=== PATIENT | female | born 1955 | race Caucasian/White ===

== ENCOUNTER 2017-05-09 11:03 | Outpatient (RCR) | payer MEDICARE, MEDICAID, SELFPAY ==
[2017-05-09 11:51] VITALS: BP 140/87; PULSE 77; RESP 18; TEMP 36.8
--- NOTE | 2017-05-09 12:39 | PCM.WC.HP ---
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 Status: Acute Current Visit: Yes Code(s): I70.239 - Atherosclerosis of [place] arteries of right leg with ulceration of unspecified site; I70.249 - Atherosclerosis of [place] arteries of left leg with ulceration of unspecified site (2) Open wound Status: Acute Current Visit: No Code(s): T14.8 - Other injury of unspecified body region (3) Peripheral vascular occlusive disease Status: Acute Current Visit: No Code(s): I73.9 - Peripheral vascular disease, unspecified (4) Bilateral edema of lower extremity Status: Chronic Current Visit: No Code(s): R60.0 - Localized edema (5) Chronic renal insufficiency, stage III (moderate) Status: Chronic Current Visit: No Code(s): N18.3 - Chronic kidney disease, stage 3 (moderate) (6) Infected open wound Status: Acute Current Visit: Yes Code(s): T14.8XXA - Other injury of unspecified body region, initial encounter; L08.9 - Local infection of the skin and subcutaneous tissue, unspecified (7) Diabetes mellitus type 2, uncontrolled, with complications Status: Chronic Current Visit: No Code(s): E11.8 - Type 2 diabetes mellitus with unspecified complications; E11.65 - Type 2 diabetes mellitus with hyperglycemia (8) Diabetic neuropathy associated with diabetes mellitus due to underlying condition Status: Chronic Current Visit: No Code(s): E08.40 - Diabetes mellitus due to underlying condition with diabetic neuropathy, unspecified (9) Morbid obesity with BMI of 50.0-59.9, adult Status: Chronic Current Visit: No Code(s): E66.01 - Morbid (severe) obesity due to excess calories; Z68.43 - Body mass index (BMI) 50-59.9 , adult History of Present Illness Date of Service: 05/09/17 Chief Complaint: Bilateral lower leg ulcers infected History of Wound: 61-year-old morbid obese woman with diabetes and has atherosclerosis disease has still not seen Dr. De La Cruz was discharged 2 months ago and due to insurance problems and now has blisters that are open ulcers on bilateral lower legs. Was seen at the [facility] and put on antibiotics but given no dressing changes. Patient was referred then to wound center. 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 (Chronic) Past Medical History: Ulcers bilateral lower legs Allergies/Adverse Reactions: Allergies Penicillins Allergy (Intermediate, Verified 05/09/17 11:54) Hives Home Medications: Ambulatory Orders Medication Instructions Recorded Albuterol Inhaler [Ventolin Hfa 2 puff INHALATION Q4H PRN PRN 05/09/17 (SP)] Aspirin 81 mg PO DAILY 05/09/17 Atorvastatin Calcium [Lipitor] 10 mg PO DAILY 05/09/17 Bupropion HCl [Wellbutrin Xl] 300 mg PO DAILY 05/09/17 Clonidine HCl [Catapres] 0.2 mg PO BID 05/09/17 Clopidogrel Bisulfate [Plavix] 75 mg PO DAILY 05/09/17 Cyanocobalamin [Vitamin B12] 500 mcg PO DAILY@0800 05/09/17 Docusate Sodium [Colace] 100 mg PO BID PRN PRN 05/09/17 Famotidine [Pepcid] 40 mg PO DAILY 05/09/17 Fenofibrate 160 mg PO DAILY 05/09/17 Gabapentin [Neurontin] 800 mg PO TIDCM 05/09/17 GlipiZIDE [Glucotrol] 5 mg PO BIDAC 05/09/17 Hydrocodone/Acetaminophen 1 each PO TID 05/09/17 [Hydrocodon-Acetaminoph 7.5-325] Insulin Aspart [Novolog Flexpen units SC TIDCM 05/09/17 ([facility])] Insulin Glargine,Hum.rec.anlog unit SQ DAILY 05/09/17 [Lantus] Lisinopril [Zestril] 2.5 mg PO DAILY 05/09/17 Metoprolol Succinate [Toprol Xl] 25 mg PO DAILY 05/09/17 Nystatin Powder [Mycostatin Powder] 1 applic TOPICAL BID 05/09/17 [place]-3 Fatty Acids/Fish Oil 2 each PO DAILY 05/09/17 [[place] 3 Fish Oil Softgel] Polyethylene Glycol 3350 [Miralax] 17 gm PO DAILY 05/09/17 Spironolactone [Aldactone] 25 mg PO DAILY 05/09/17 Lives: Alone Smoking Status: Former smoker Tobacco Use: Non-smoker Alcohol: None Drugs: None Review of Systems Constitutional: Denies: Chills, Fever Eyes: Denies: Blurred vision, Drainage, Pain HEENT: Denies: Difficulty Hearing, Difficulty Swallowing, Sore Throat, Visual Changes Cardiovascular: Denies: Chest Pain, Palpitations, Syncope Respiratory: Denies: Cough, Shortness of Breath Gastrointestinal: Denies: Abdominal Pain, Nausea, Vomiting Genitourinary: Denies: Dysuria, Frequency Musculoskeletal: Denies: Joint Pain, Muscle pain Skin: Reports: - - Ulcer clusters on bilateral lower legs it started as blisters. Denies: Jaundice, Rash Neurological: Denies: Balance problems, Change in Speech, Difficulty swallowing, Focal weakness Psychiatric: Denies: Anxiety, Depression Endocrine: Denies: Change in Body Habitus Hematologic/ Lymphatic: Denies: Adenopathy - Physical Exam Vital Signs Temp Pulse Resp BP 98.2 F 77 18 140/87 H 05/09/17 11:51 05/09/17 11:51 05/09/17 11:51 05/09/17 11:51 General: Oriented x3, Cooperative, Well developed HEENT: Atraumatic, PERRLA Oral: Moist Mucosa Neck: Supple, No JVD Lungs: Clear to auscultation, Normal air movement Cardiovascular: Regular rate, Regular Rhythm Abdomen: Bowel Sounds Present, Soft, Non Tender, No Hepato-splenomegaly Extremities: No clubbing, No edema, - - Ulcer clusters on bilateral lower legs Wound Measurements and Assessment WC - Nurse 1 - General Ulcer Measurement Start: 05/09/17 11:19 Freq: Status: Active Protocol: Activity Type Activity Date Activity User E-Sign Co-Sign Detail Recorded Client Recorded Date Recorded By Document 05/09/17 11:51 [id number] 05/09/17 12:07 05/09/17 11:51 Wound Center Nurse 1 [Ulcer Assessment] #11 left inferior salgado -Combined with other wound No -Current Size (cm) - Length 1.1 -Current Size (cm) - Width 0.9 -Current Size (cm) - Depth 0.1 -Total Square Cm 0.99 -Date of Last Picture (Recall this 05/09/17 field) -Photo Taken Yes -Epithelialization Small 1-33% -Tunneling No -Undermining/Tunneling No -Circular Undermining No -Classification - Thickness Full Thickness without Exposed Support Structure -Exudate Amt Small (1-33%) -Exudate Type Serosanguineous -Wound Margin Distinct, Outline Attached -Granulation Amt Large (67-100%) -Granulation Quality [place] -Slough/Fibrin Yes -Necrosis Amt Small (1-33%) -Necrotic Tissue Type Adherent Slough -Structure Exposed Fascia Fat Layer Exposed -Texture (Iman-wound Skin Appearance) Friable Localized Edema Scarring -Moisture (Iman-wound Skin Appearance No Abnormality ) -Color (Iman-wound Skin Appearance) Erythema Hemosiderin Staining -Temperature (Iman-wound Skin No Abnormality Appearance) (Pt Warm) -Tenderness on Palpation (Iman-wound No Skin Appearance) -Ulcer Cleansing Rinsed/ Irrigated with Saline -Foul Odor after Cleansing No -Anesthetic Used 5% Lidocaine Gel #10 left medial salgado cluster -Combined with other wound No -Current Size (cm) - Length 4.0 -Current Size (cm) - Width 1.7 -Current Size (cm) - Depth 0.1 -Total Square Cm 6.80 -Date of Last Picture (Recall this 05/09/17 field) -Photo Taken Yes -Epithelialization None Present -Tunneling No -Undermining/Tunneling No -Circular Undermining No -Classification - Thickness Full Thickness without Exposed Support Structure -Exudate Amt Medium (34-66%) -Exudate Type Serosanguineous -Wound Margin Distinct, Outline Attached -Granulation Amt None Present (0 %) -Granulation Quality N/A -Slough/Fibrin Yes -Necrosis Amt Large (67-100%) -Necrotic Tissue Type Adherent Slough -Structure Exposed Fascia Fat Layer Exposed -Texture (Iman-wound Skin Appearance) Friable Localized Edema Scarring -Moisture (Iman-wound Skin Appearance No Abnormality ) -Color (Iman-wound Skin Appearance) Erythema Hemosiderin Staining -Temperature (Iman-wound Skin No Abnormality Appearance) (Pt Warm) -Tenderness on Palpation (Iman-wound Yes Skin Appearance) -Ulcer Cleansing Rinsed/ Irrigated with Saline -Foul Odor after Cleansing No -Anesthetic Used 5% Lidocaine Gel #9 left superior salgado cluster -Combined with other wound No -Current Size (cm) - Length 4.5 -Current Size (cm) - Width 7.4 -Current Size (cm) - Depth 0.1 -Total Square Cm 33.30 -Date of Last Picture (Recall this 05/09/17 field) -Photo Taken Yes -Epithelialization None Present -Tunneling No -Undermining/Tunneling No -Circular Undermining No -Classification - Thickness Full Thickness without Exposed Support Structure -Exudate Amt Medium (34-66%) -Exudate Type Serosanguineous -Wound Margin Distinct, Outline Attached -Granulation Amt None Present (0 %) -Granulation Quality N/A -Slough/Fibrin Yes -Necrosis Amt Large (67-100%) -Necrotic Tissue Type Adherent Slough -Structure Exposed Fascia Fat Layer Exposed -Texture (Iman-wound Skin Appearance) Friable Localized Edema Scarring -Moisture (Iman-wound Skin Appearance No Abnormality ) -Color (Iman-wound Skin Appearance) Erythema Hemosiderin Staining -Temperature (Iman-wound Skin No Abnormality Appearance) (Pt Warm) -Tenderness on Palpation (Iman-wound Yes Skin Appearance) -Ulcer Cleansing Rinsed/ Irrigated with Saline -Foul Odor after Cleansing No -Anesthetic Used 5% Lidocaine Gel #8 right posterior LE -Combined with other wound No -Current Size (cm) - Length 0.8 -Current Size (cm) - Width 0.4 -Current Size (cm) - Depth 0.1 -Total Square Cm 0.32 -Date of Last Picture (Recall this 05/09/17 field) -Photo Taken Yes -Epithelialization Small 1-33% -Tunneling No -Undermining/Tunneling No -Circular Undermining No -Classification - Thickness Full Thickness without Exposed Support Structure -Exudate Amt Small (1-33%) -Exudate Type Serosanguineous -Wound Margin Distinct, Outline Attached -Granulation Amt None Present (0 %) -Granulation Quality N/A -Slough/Fibrin Yes -Necrosis Amt Large (67-100%) -Necrotic Tissue Type Adherent Slough -Structure Exposed Fascia Fat Layer Exposed -Texture (Iman-wound Skin Appearance) Localized Edema -Moisture (Iman-wound Skin Appearance Dry/Scaly ) -Color (Iman-wound Skin Appearance) Erythema Hemosiderin Staining -Temperature (Iman-wound Skin No Abnormality Appearance) (Pt Warm) -Tenderness on Palpation (Iman-wound No Skin Appearance) -Ulcer Cleansing Rinsed/ Irrigated with Saline -Foul Odor after Cleansing No -Anesthetic Used 5% Lidocaine Gel #7 right inferior salgado -Combined with other wound No -Current Size (cm) - Length 0.8 -Current Size (cm) - Width 0.6 -Current Size (cm) - Depth 0.1 -Total Square Cm 0.48 -Date of Last Picture (Recall this 05/09/17 field) -Photo Taken Yes -Epithelialization Small 1-33% -Tunneling No -Undermining/Tunneling No -Circular Undermining No -Classification - Thickness Full Thickness without Exposed Support Structure -Exudate Amt Small (1-33%) -Exudate Type Serosanguineous -Wound Margin Distinct, Outline Attached -Granulation Amt Large (67-100%) -Granulation Quality [place] -Slough/Fibrin Yes -Necrosis Amt Small (1-33%) -Necrotic Tissue Type Adherent Slough -Structure Exposed Fascia Fat Layer Exposed -Texture (Iman-wound Skin Appearance) Friable Localized Edema Scarring -Moisture (Iman-wound Skin Appearance No Abnormality ) -Color (Iman-wound Skin Appearance) Erythema Hemosiderin Staining -Temperature (Iman-wound Skin No Abnormality Appearance) (Pt Warm) -Tenderness on Palpation (Iman-wound No Skin Appearance) -Ulcer Cleansing Rinsed/ Irrigated with Saline -Foul Odor after Cleansing No -Anesthetic Used 5% Lidocaine Gel #6 right medial salgado cluster -Combined with other wound No -Current Size (cm) - Length 6.0 -Current Size (cm) - Width 1.5 -Current Size (cm) - Depth 0.1 -Total Square Cm 9.00 -Date of Last Picture (Recall this 05/09/17 field) -Photo Taken Yes -Epithelialization None Present -Tunneling No -Undermining/Tunneling No -Circular Undermining No -Classification - Thickness Full Thickness without Exposed Support Structure -Exudate Amt Medium (34-66%) -Exudate Type Serosanguineous -Wound Margin Distinct, Outline Attached -Granulation Amt None Present (0 %) -Granulation Quality N/A -Slough/Fibrin Yes -Necrosis Amt Large (67-100%) -Necrotic Tissue Type Adherent Slough -Structure Exposed Fascia Fat Layer Exposed -Texture (Iman-wound Skin Appearance) Friable Localized Edema Scarring -Moisture (Iman-wound Skin Appearance No Abnormality ) -Color (Iman-wound Skin Appearance) Erythema Hemosiderin Staining -Temperature (Iman-wound Skin No Abnormality Appearance) (Pt Warm) -Tenderness on Palpation (Iman-wound Yes Skin Appearance) -Ulcer Cleansing Rinsed/ Irrigated with Saline -Foul Odor after Cleansing No -Anesthetic Used 5% Lidocaine Gel #5 right superior salgado cluster -Combined with other wound No -Current Size (cm) - Length 5.2 -Current Size (cm) - Width 2.2 -Current Size (cm) - Depth 0.2 -Total Square Cm 11.44 -Date of Last Picture (Recall this 05/09/17 field) -Photo Taken Yes -Epithelialization None Present -Tunneling No -Undermining/Tunneling No -Circular Undermining No -Classification - Thickness Full Thickness without Exposed Support Structure -Exudate Amt Small (1-33%) -Exudate Type Serosanguineous -Wound Margin Distinct, Outline Attached -Granulation Amt None Present (0 %) -Granulation Quality N/A -Slough/Fibrin Yes -Necrosis Amt Large (67-100%) -Necrotic Tissue Type Adherent Slough -Structure Exposed Fascia Fat Layer Exposed -Texture (Iman-wound Skin Appearance) Friable Localized Edema Scarring -Moisture (Iman-wound Skin Appearance No Abnormality ) -Color (Iman-wound Skin Appearance) Erythema Hemosiderin Staining -Temperature (Iman-wound Skin No Abnormality Appearance) (Pt Warm) -Tenderness on Palpation (Iman-wound Yes Skin Appearance) -Ulcer Cleansing Rinsed/ Irrigated with Saline -Foul Odor after Cleansing No -Anesthetic Used 5% Lidocaine Gel [Edema Assessment] -Lower Limb Edema Present Yes -Right Calf (cm) 46.8 -Right Ankle (cm) 23.5 -Left Calf (cm) 44.5 -Left Ankle (cm) 22.0 WC - Nurse 2 - General Ulcer CM Notes Start: 05/09/17 11:19 Freq: Status: Active Protocol: Activity Type Activity Date Activity User E-Sign Co-Sign Detail Recorded Client Recorded Date Recorded By Document 05/09/17 12:15 MW [id number] 05/09/17 12:27 MW 05/09/17 12:15 Wound Center Nurse 2 [Procedure/Treatment] #11 left inferior salgado -Time 12:20 -Correct Patient Yes -Correct Side, Site, Position Yes -Correct Procedure Yes -Procedure Performed Yes -Type of Procedure Debridement -Clinical Debridement Subcutaneous -Post Debridement Size (cm) - Length 1.0 -Post Debridement Size (cm) - Width 0.5 -Post Debridement Size (cm) - Depth 0.1 -Total Square Cm 0.50 -Wound/Ulcer Outcome Not Healed -Ulcer Cleansing Rinsed/ Irrigated with Saline -Foul Odor after Cleansing No -Bioengineered Tissue No -Bleeding Controlled with Pressure -Treatment Response Procedure Tolerated Well #10 left medial salgado cluster -Time 12:21 -Correct Patient Yes -Correct Side, Site, Position Yes -Correct Procedure Yes -Procedure Performed Yes -Type of Procedure Debridement -Clinical Debridement Subcutaneous -Post Debridement Size (cm) - Length 4.0 -Post Debridement Size (cm) - Width 1.7 -Post Debridement Size (cm) - Depth 0.1 -Total Square Cm 6.80 -Wound/Ulcer Outcome Not Healed -Ulcer Cleansing Rinsed/ Irrigated with Saline -Foul Odor after Cleansing No -Bioengineered Tissue No -Bleeding Controlled with Pressure -Treatment Response Procedure Tolerated Well #9 left superior salgado cluster -Time 12:21 -Correct Patient Yes -Correct Side, Site, Position Yes -Correct Procedure Yes -Procedure Performed Yes -Type of Procedure Debridement -Clinical Debridement Subcutaneous -Post Debridement Size (cm) - Length 4.5 -Post Debridement Size (cm) - Width 6.2 -Post Debridement Size (cm) - Depth 0.1 -Total Square Cm 27.90 -Wound/Ulcer Outcome Not Healed -Ulcer Cleansing Rinsed/ Irrigated with Saline -Foul Odor after Cleansing No -Bioengineered Tissue No -Bleeding Controlled with Pressure -Treatment Response Procedure Tolerated Well #8 right posterior LE -Time 12:22 -Correct Patient Yes -Correct Side, Site, Position Yes -Correct Procedure Yes -Procedure Performed Yes -Type of Procedure Debridement -Clinical Debridement Subcutaneous -Post Debridement Size (cm) - Length 0.7 -Post Debridement Size (cm) - Width 0.3 -Post Debridement Size (cm) - Depth 0.1 -Total Square Cm 0.21 -Wound/Ulcer Outcome Not Healed -Ulcer Cleansing Rinsed/ Irrigated with Saline -Foul Odor after Cleansing No -Bioengineered Tissue No -Bleeding Controlled with Pressure -Treatment Response Procedure Tolerated Well #7 right inferior salgado -Time 12:22 -Correct Patient Yes -Correct Side, Site, Position Yes -Correct Procedure Yes -Procedure Performed Yes -Type of Procedure Debridement -Clinical Debridement Subcutaneous -Post Debridement Size (cm) - Length 1.0 -Post Debridement Size (cm) - Width 1.0 -Post Debridement Size (cm) - Depth 0.2 -Total Square Cm 1.00 -Wound/Ulcer Outcome Not Healed -Ulcer Cleansing Rinsed/ Irrigated with Saline -Foul Odor after Cleansing No -Bioengineered Tissue No -Bleeding Controlled with Pressure -Treatment Response Procedure Tolerated Well #6 right medial salgado cluster -Time 12:22 -Correct Patient Yes -Correct Side, Site, Position Yes -Correct Procedure Yes -Procedure Performed Yes -Type of Procedure Debridement -Clinical Debridement Subcutaneous -Post Debridement Size (cm) - Length 7.5 -Post Debridement Size (cm) - Width 3.0 -Post Debridement Size (cm) - Depth 0.2 -Total Square Cm 22.50 -Wound/Ulcer Outcome Not Healed -Ulcer Cleansing Rinsed/ Irrigated with Saline -Foul Odor after Cleansing No -Bioengineered Tissue No -Bleeding Controlled with Pressure -Treatment Response Procedure Tolerated Well #5 right superior salgado cluster -Time 12:23 -Correct Patient Yes -Correct Side, Site, Position Yes -Correct Procedure Yes -Procedure Performed Yes -Type of Procedure Debridement -Clinical Debridement Subcutaneous -Post Debridement Size (cm) - Length 5.5 -Post Debridement Size (cm) - Width 2.0 -Post Debridement Size (cm) - Depth 0.2 -Total Square Cm 11.00 -Wound/Ulcer Outcome Not Healed -Ulcer Cleansing Rinsed/ Irrigated with Saline -Foul Odor after Cleansing No -Bioengineered Tissue No -Bleeding Controlled with Pressure -Treatment Response Procedure Tolerated Well [See Physician Procedure note for Specifics] Pain Scale: 0-10 Numeric [Pain] -Is Patient Pain Free? Yes Musculoskeletal: No Tenderness to Palpation of Joints or Extremities Lymphatic: No Cervical, Supraclavicular, or Inguinal Adenopathy Neurological: Cranial nerves II-XII grossly intact, Neuro grossly intact Psych/Mental Status: Normal Affect, Appropriate Debridement Note Post-Debridement Measurements/Treatment WC - Nurse 2 - General Ulcer CM Notes Start: 05/09/17 11:19 Freq: Status: Active Protocol: Activity Type Activity Date Activity User E-Sign Co-Sign Detail Recorded Client Recorded Date Recorded By Document 05/09/17 12:15 MW [id number] 05/09/17 12:27 MW 05/09/17 12:15 Wound Center Nurse 2 #11 left inferior salgado -Time 12:20 -Correct Patient Yes -Correct Side, Site, Position Yes -Correct Procedure Yes -Procedure Performed Yes -Type of Procedure Debridement -Clinical Debridement Subcutaneous -Post Debridement Size (cm) - Length 1.0 -Post Debridement Size (cm) - Width 0.5 -Post Debridement Size (cm) - Depth 0.1 -Total Square Cm 0.50 -Wound/Ulcer Outcome Not Healed -Ulcer Cleansing Rinsed/ Irrigated with Saline -Foul Odor after Cleansing No -Bioengineered Tissue No -Bleeding Controlled with Pressure -Treatment Response Procedure Tolerated Well #10 left medial salgado cluster -Time 12:21 -Correct Patient Yes -Correct Side, Site, Position Yes -Correct Procedure Yes -Procedure Performed Yes -Type of Procedure Debridement -Clinical Debridement Subcutaneous -Post Debridement Size (cm) - Length 4.0 -Post Debridement Size (cm) - Width 1.7 -Post Debridement Size (cm) - Depth 0.1 -Total Square Cm 6.80 -Wound/Ulcer Outcome Not Healed -Ulcer Cleansing Rinsed/ Irrigated with Saline -Foul Odor after Cleansing No -Bioengineered Tissue No -Bleeding Controlled with Pressure -Treatment Response Procedure Tolerated Well #9 left superior salgado cluster -Time 12:21 -Correct Patient Yes -Correct Side, Site, Position Yes -Correct Procedure Yes -Procedure Performed Yes -Type of Procedure Debridement -Clinical Debridement Subcutaneous -Post Debridement Size (cm) - Length 4.5 -Post Debridement Size (cm) - Width 6.2 -Post Debridement Size (cm) - Depth 0.1 -Total Square Cm 27.90 -Wound/Ulcer Outcome Not Healed -Ulcer Cleansing Rinsed/ Irrigated with Saline -Foul Odor after Cleansing No -Bioengineered Tissue No -Bleeding Controlled with Pressure -Treatment Response Procedure Tolerated Well #8 right posterior LE -Time 12:22 -Correct Patient Yes -Correct Side, Site, Position Yes -Correct Procedure Yes -Procedure Performed Yes -Type of Procedure Debridement -Clinical Debridement Subcutaneous -Post Debridement Size (cm) - Length 0.7 -Post Debridement Size (cm) - Width 0.3 -Post Debridement Size (cm) - Depth 0.1 -Total Square Cm 0.21 -Wound/Ulcer Outcome Not Healed -Ulcer Cleansing Rinsed/ Irrigated with Saline -Foul Odor after Cleansing No -Bioengineered Tissue No -Bleeding Controlled with Pressure -Treatment Response Procedure Tolerated Well #7 right inferior salgado -Time 12:22 -Correct Patient Yes -Correct Side, Site, Position Yes -Correct Procedure Yes -Procedure Performed Yes -Type of Procedure Debridement -Clinical Debridement Subcutaneous -Post Debridement Size (cm) - Length 1.0 -Post Debridement Size (cm) - Width 1.0 -Post Debridement Size (cm) - Depth 0.2 -Total Square Cm 1.00 -Wound/Ulcer Outcome Not Healed -Ulcer Cleansing Rinsed/ Irrigated with Saline -Foul Odor after Cleansing No -Bioengineered Tissue No -Bleeding Controlled with Pressure -Treatment Response Procedure Tolerated Well #6 right medial salgado cluster -Time 12:22 -Correct Patient Yes -Correct Side, Site, Position Yes -Correct Procedure Yes -Procedure Performed Yes -Type of Procedure Debridement -Clinical Debridement Subcutaneous -Post Debridement Size (cm) - Length 7.5 -Post Debridement Size (cm) - Width 3.0 -Post Debridement Size (cm) - Depth 0.2 -Total Square Cm 22.50 -Wound/Ulcer Outcome Not Healed -Ulcer Cleansing Rinsed/ Irrigated with Saline -Foul Odor after Cleansing No -Bioengineered Tissue No -Bleeding Controlled with Pressure -Treatment Response Procedure Tolerated Well #5 right superior salgado cluster -Time 12:23 -Correct Patient Yes -Correct Side, Site, Position Yes -Correct Procedure Yes -Procedure Performed Yes -Type of Procedure Debridement -Clinical Debridement Subcutaneous -Post Debridement Size (cm) - Length 5.5 -Post Debridement Size (cm) - Width 2.0 -Post Debridement Size (cm) - Depth 0.2 -Total Square Cm 11.00 -Wound/Ulcer Outcome Not Healed -Ulcer Cleansing Rinsed/ Irrigated with Saline -Foul Odor after Cleansing No -Bioengineered Tissue No -Bleeding Controlled with Pressure -Treatment Response Procedure Tolerated Well Pain Scale: 0-10 Numeric Is Patient Pain Free? Yes Wound debrided: Superior salgado cluster Type of Debridement: Excisional debridement Anesthesia Used: 5% Lidocaine Gel Depth: Down to and including healthy tissue, in the subcutaneous layer Percentage of wound debrided: 100 Instrument Used: 5mm curette Tissue Removed: slough and devitalized tissue Severity: Limited To Skin Breakdown Amount of bleeding with debridement: Mild Bleeding Controlled with: Compression and gauze Patient tolerated procedure well - Additional Wound Wound debrided: Right medial and cluster Type of Debridement: Excisional debridement Anesthesia Used: 5% Lidocaine Gel Depth: Down to and including healthy tissue, in the subcutaneous layer, to muscle Percentage of wound debrided: 100 Instrument Used: 5mm curette Tissue Removed: Slough Severity: Limited To Skin Breakdown Amount of bleeding with debridement: Mild - Additional Wound Wound debrided: The posterior lower leg Type of Debridement: Excisional debridement Anesthesia Used: 5% Lidocaine Gel Depth: Down to and including healthy tissue, in the subcutaneous layer Percentage of wound debrided: 100 Instrument Used: 5mm curette Tissue Removed: slough - Additional Wound Wound debrided: Superior salgado cluster Type of Debridement: Excisional debridement Anesthesia Used: 5% Lidocaine Gel Depth: Down to and including healthy tissue, in the subcutaneous layer Percentage of wound debrided: 100 Instrument Used: 5mm curette Tissue Removed: slough Severity: Limited To Skin Breakdown Amount of bleeding with debridement: Mild Bleeding Controlled with: Compression and gauze - Additional Wound Wound debrided: Left medial salgado cluster Type of Debridement: Excisional debridement Anesthesia Used: 5% Lidocaine Gel Depth: Down to and including healthy tissue, in the subcutaneous layer Instrument Used: 5mm curette Tissue Removed: Slough Severity: Limited To Skin Breakdown Amount of bleeding with debridement: Mild Bleeding Controlled with: Compression and gauze Patient tolerated procedure: Patient tolerated procedure well - Additional Wound Wound debrided: Left inferior salgado Type of Debridement: Excisional debridement Anesthesia Used: 5% Lidocaine Gel Depth: Down to and including healthy tissue, in the subcutaneous layer Percentage of wound debrided: 100 Instrument Used: 5mm curette Tissue Removed: slough Severity: Limited To Skin Breakdown Amount of bleeding with debridement: Mild Bleeding Controlled with: Compression and gauze Patient tolerated procedure: Patient tolerated procedure well Assessment/Plan Anaerobic cultures taken of ulcers right leg Active Problems Atherosclerosis of both lower extremities with bilateral ulceration (Acute) Infected bite wound (Acute) Infected open wound (Acute) Assessment: Ulcers bilateral lower legs in clusters. Bilateral lower leg edema. Diabetes type 2 uncontrolled. 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 Renal insufficiency grade 3 Plan: Wash legs with Hibiclens and apply Aquacel silver moistened to all wound areas cover with Adaptic wrapped with gauze and [place]. Apply a double layer Tubigrip's to bilateral lower legs. Cultures were taken of bilateral lower legs. Continue taking antibiotic given to at the hospital. Follow-up in 1 week
--- NOTE | 2017-05-09 12:49 | HP.PCM_ITS ---
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 Status: Acute Current Visit: Yes Code(s): I70.239 - Atherosclerosis of [place] arteries of right leg with ulceration of unspecified site; I70.249 - Atherosclerosis of [place] arteries of left leg with ulceration of unspecified site (2) Open wound Status: Acute Current Visit: No Code(s): T14.8 - Other injury of unspecified body region (3) Peripheral vascular occlusive disease Status: Acute Current Visit: No Code(s): I73.9 - Peripheral vascular disease , unspecified (4) Bilateral edema of lower extremity Status: Chronic Current Visit: No Code(s): R60.0 - Localized edema (5) Chronic renal insufficiency, stage III (moderate) Status: Chronic Current Visit: No Code(s): N18.3 - Chronic kidney disease, stage 3 (moderate) (6) Infected open wound Status: Acute Current Visit: Yes Code(s): T14.8XXA - Other injury of unspecified body region, initial encounter; L08.9 - Local infection of the skin and subcutaneous tissue, unspecified (7) Diabetes mellitus type 2, uncontrolled, with complications Status: Chronic Current Visit: No Code(s): E11.8 - Type 2 diabetes mellitus with unspecified complications; E11.65 - Type 2 diabetes mellitus with hyperglycemia (8) Diabetic neuropathy associated with diabetes mellitus due to underlying condition Status: Chronic Current Visit: No Code(s): E08.40 - Diabetes mellitus due to underlying condition with diabetic neuropathy, unspecified (9) Morbid obesity with BMI of 50.0-59.9, adult Status: Chronic Current Visit: No Code(s): E66.01 - Morbid (severe) obesity due to excess calories; Z68.43 - Body mass index (BMI) 50-59.9 , adult History of Present Illness Date of Service: 05/09/17 Chief Complaint: Bilateral lower leg ulcers infected History of Wound: 61-year-old morbid obese woman with diabetes and has atherosclerosis disease has still not seen Dr. De La Cruz was discharged 2 months ago and due to insurance problems and now has blisters that are open ulcers on bilateral lower legs. Was seen at the [facility] and put on antibiotics but given no dressing changes. Patient was referred then to wound center. 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 (Chronic) Past Medical History: Ulcers bilateral lower legs Allergies/Adverse Reactions: Allergies Penicillins Allergy (Intermediate, Verified 05/09/17 11:54) Hives Home Medications: Ambulatory Orders Medication Instructions Recorded Albuterol Inhaler [Ventolin Hfa 2 puff INHALATION Q4H PRN PRN 05/09/17 (SP)] Aspirin 81 mg PO DAILY 05/09/17 Atorvastatin Calcium [Lipitor] 10 mg PO DAILY 05/09/17 Bupropion HCl [Wellbutrin Xl] 300 mg PO DAILY 05/09/17 Clonidine HCl [Catapres] 0.2 mg PO BID 05/09/17 Clopidogrel Bisulfate [Plavix] 75 mg PO DAILY 05/09/17 Cyanocobalamin [Vitamin B12] 500 mcg PO DAILY@0800 05/09/17 Docusate Sodium [Colace] 100 mg PO BID PRN PRN 05/09/17 Famotidine [Pepcid] 40 mg PO DAILY 05/09/17 Fenofibrate 160 mg PO DAILY 05/09/17 Gabapentin [Neurontin] 800 mg PO TIDCM 05/09/17 GlipiZIDE [Glucotrol] 5 mg PO BIDAC 05/09/17 Hydrocodone/Acetaminophen 1 each PO TID 05/09/17 [Hydrocodon-Acetaminoph 7.5-325] Insulin Aspart [Novolog Flexpen units SC TIDCM 05/09/17 ([facility])] Insulin Glargine,Hum.rec.anlog unit SQ DAILY 05/09/17 [Lantus] Lisinopril [Zestril] 2.5 mg PO DAILY 05/09/17 Metoprolol Succinate [Toprol Xl] 25 mg PO DAILY 05/09/17 Nystatin Powder [Mycostatin Powder] 1 applic TOPICAL BID 05/09/17 [place]-3 Fatty Acids/Fish Oil 2 each PO DAILY 05/09/17 [[place] 3 Fish Oil Softgel] Polyethylene Glycol 3350 [Miralax] 17 gm PO DAILY 05/09/17 Spironolactone [Aldactone] 25 mg PO DAILY 05/09/17 Lives: Alone Smoking Status: Former smoker Tobacco Use: Non-smoker Alcohol: None Drugs: None Review of Systems Constitutional: Denies: Chills, Fever Eyes: Denies: Blurred vision, Drainage, Pain HEENT: Denies: Difficulty Hearing, Difficulty Swallowing, Sore Throat, Visual Changes Cardiovascular: Denies: Chest Pain, Palpitations, Syncope Respiratory: Denies: Cough, Shortness of Breath Gastrointestinal: Denies: Abdominal Pain, Nausea, Vomiting Genitourinary: Denies: Dysuria, Frequency Musculoskeletal: Denies: Joint Pain, Muscle pain Skin: Reports: - - Ulcer clusters on bilateral lower legs it started as blisters. Denies: Jaundice, Rash Neurological: Denies: Balance problems, Change in Speech, Difficulty swallowing , Focal weakness Psychiatric: Denies: Anxiety, Depression Endocrine: Denies: Change in Body Habitus Hematologic/ Lymphatic: Denies: Adenopathy - Physical Exam Vital Signs Temp Pulse Resp BP 98.2 F 77 18 140/87 H 05/09/17 11:51 05/09/17 11:51 05/09/17 11:51 05/09/17 11:51 General: Oriented x3, Cooperative, Well developed HEENT: Atraumatic, PERRLA Oral: Moist Mucosa Neck: Supple, No JVD Lungs: Clear to auscultation, Normal air movement Cardiovascular: Regular rate, Regular Rhythm Abdomen: Bowel Sounds Present, Soft, Non Tender, No Hepato-splenomegaly Extremities: No clubbing, No edema, - - Ulcer clusters on bilateral lower legs Wound Measurements and Assessment WC - Nurse 1 - General Ulcer Measurement Start: 05/09/17 11:19 Freq: Status: Active Protocol: Activity Type Activity Date Activity User E-Sign Co-Sign Detail Recorded Client Recorded Date Recorded By Document 05/09/17 11:51 [id number] 05/09/17 12:07 05/09/17 11:51 Wound Center Nurse 1 [Ulcer Assessment] #11 left inferior salgado -Combined with other wound No -Current Size (cm) - Length 1.1 -Current Size (cm) - Width 0.9 -Current Size (cm) - Depth 0.1 -Total Square Cm 0.99 -Date of Last Picture (Recall this 05/09/17 field) -Photo Taken Yes -Epithelialization Small 1-33% -Tunneling No -Undermining/Tunneling No -Circular Undermining No -Classification - Thickness Full Thickness without Exposed Support Structure -Exudate Amt Small (1-33%) -Exudate Type Serosanguineous -Wound Margin Distinct, Outline Attached -Granulation Amt Large (67-100%) -Granulation Quality [place] -Slough/Fibrin Yes -Necrosis Amt Small (1-33%) -Necrotic Tissue Type Adherent Slough -Structure Exposed Fascia Fat Layer Exposed -Texture (Iman-wound Skin Appearance) Friable Localized Edema Scarring -Moisture (Iman-wound Skin Appearance No Abnormality ) -Color (Iman-wound Skin Appearance) Erythema Hemosiderin Staining -Temperature (Iman-wound Skin No Abnormality Appearance) (Pt Warm) -Tenderness on Palpation (Iman-wound No Skin Appearance) -Ulcer Cleansing Rinsed/ Irrigated with Saline -Foul Odor after Cleansing No -Anesthetic Used 5% Lidocaine Gel #10 left medial salgado cluster -Combined with other wound No -Current Size (cm) - Length 4.0 -Current Size (cm) - Width 1.7 -Current Size (cm) - Depth 0.1 -Total Square Cm 6.80 -Date of Last Picture (Recall this 05/09/17 field) -Photo Taken Yes -Epithelialization None Present -Tunneling No -Undermining/Tunneling No -Circular Undermining No -Classification - Thickness Full Thickness without Exposed Support Structure -Exudate Amt Medium (34-66%) -Exudate Type Serosanguineous -Wound Margin Distinct, Outline Attached -Granulation Amt None Present (0 %) -Granulation Quality N/A -Slough/Fibrin Yes -Necrosis Amt Large (67-100%) -Necrotic Tissue Type Adherent Slough -Structure Exposed Fascia Fat Layer Exposed -Texture (Iman-wound Skin Appearance) Friable Localized Edema Scarring -Moisture (Iman-wound Skin Appearance No Abnormality ) -Color (Iman-wound Skin Appearance) Erythema Hemosiderin Staining -Temperature (Iman-wound Skin No Abnormality Appearance) (Pt Warm) -Tenderness on Palpation (Iman-wound Yes Skin Appearance) -Ulcer Cleansing Rinsed/ Irrigated with Saline -Foul Odor after Cleansing No -Anesthetic Used 5% Lidocaine Gel #9 left superior salgado cluster -Combined with other wound No -Current Size (cm) - Length 4.5 -Current Size (cm) - Width 7.4 -Current Size (cm) - Depth 0.1 -Total Square Cm 33.30 -Date of Last Picture (Recall this 05/09/17 field) -Photo Taken Yes -Epithelialization None Present -Tunneling No -Undermining/Tunneling No -Circular Undermining No -Classification - Thickness Full Thickness without Exposed Support Structure -Exudate Amt Medium (34-66%) -Exudate Type Serosanguineous -Wound Margin Distinct, Outline Attached -Granulation Amt None Present (0 %) -Granulation Quality N/A -Slough/Fibrin Yes -Necrosis Amt Large (67-100%) -Necrotic Tissue Type Adherent Slough -Structure Exposed Fascia Fat Layer Exposed -Texture (Iman-wound Skin Appearance) Friable Localized Edema Scarring -Moisture (Iman-wound Skin Appearance No Abnormality ) -Color (Iman-wound Skin Appearance) Erythema Hemosiderin Staining -Temperature (Iman-wound Skin No Abnormality Appearance) (Pt Warm) -Tenderness on Palpation (Iman-wound Yes Skin Appearance) -Ulcer Cleansing Rinsed/ Irrigated with Saline -Foul Odor after Cleansing No -Anesthetic Used 5% Lidocaine Gel #8 right posterior LE -Combined with other wound No -Current Size (cm) - Length 0.8 -Current Size (cm) - Width 0.4 -Current Size (cm) - Depth 0.1 -Total Square Cm 0.32 -Date of Last Picture (Recall this 05/09/17 field) -Photo Taken Yes -Epithelialization Small 1-33% -Tunneling No -Undermining/Tunneling No -Circular Undermining No -Classification - Thickness Full Thickness without Exposed Support Structure -Exudate Amt Small (1-33%) -Exudate Type Serosanguineous -Wound Margin Distinct, Outline Attached -Granulation Amt None Present (0 %) -Granulation Quality N/A -Slough/Fibrin Yes -Necrosis Amt Large (67-100%) -Necrotic Tissue Type Adherent Slough -Structure Exposed Fascia Fat Layer Exposed -Texture (Iman-wound Skin Appearance) Localized Edema -Moisture (Iman-wound Skin Appearance Dry/Scaly ) -Color (Iman-wound Skin Appearance) Erythema Hemosiderin Staining -Temperature (Iman-wound Skin No Abnormality Appearance) (Pt Warm) -Tenderness on Palpation (Iman-wound No Skin Appearance) -Ulcer Cleansing Rinsed/ Irrigated with Saline -Foul Odor after Cleansing No -Anesthetic Used 5% Lidocaine Gel #7 right inferior salgado -Combined with other wound No -Current Size (cm) - Length 0.8 -Current Size (cm) - Width 0.6 -Current Size (cm) - Depth 0.1 -Total Square Cm 0.48 -Date of Last Picture (Recall this 05/09/17 field) -Photo Taken Yes -Epithelialization Small 1-33% -Tunneling No -Undermining/Tunneling No -Circular Undermining No -Classification - Thickness Full Thickness without Exposed Support Structure -Exudate Amt Small (1-33%) -Exudate Type Serosanguineous -Wound Margin Distinct, Outline Attached -Granulation Amt Large (67-100%) -Granulation Quality [place] -Slough/Fibrin Yes -Necrosis Amt Small (1-33%) -Necrotic Tissue Type Adherent Slough -Structure Exposed Fascia Fat Layer Exposed -Texture (Iman-wound Skin Appearance) Friable Localized Edema Scarring -Moisture (Iman-wound Skin Appearance No Abnormality ) -Color (Iman-wound Skin Appearance) Erythema Hemosiderin Staining -Temperature (Iman-wound Skin No Abnormality Appearance) (Pt Warm) -Tenderness on Palpation (Iman-wound No Skin Appearance) -Ulcer Cleansing Rinsed/ Irrigated with Saline -Foul Odor after Cleansing No -Anesthetic Used 5% Lidocaine Gel #6 right medial salgado cluster -Combined with other wound No -Current Size (cm) - Length 6.0 -Current Size (cm) - Width 1.5 -Current Size (cm) - Depth 0.1 -Total Square Cm 9.00 -Date of Last Picture (Recall this 05/09/17 field) -Photo Taken Yes -Epithelialization None Present -Tunneling No -Undermining/Tunneling No -Circular Undermining No -Classification - Thickness Full Thickness without Exposed Support Structure -Exudate Amt Medium (34-66%) -Exudate Type Serosanguineous -Wound Margin Distinct, Outline Attached -Granulation Amt None Present (0 %) -Granulation Quality N/A -Slough/Fibrin Yes -Necrosis Amt Large (67-100%) -Necrotic Tissue Type Adherent Slough -Structure Exposed Fascia Fat Layer Exposed -Texture (Iman-wound Skin Appearance) Friable Localized Edema Scarring -Moisture (Iman-wound Skin Appearance No Abnormality ) -Color (Iman-wound Skin Appearance) Erythema Hemosiderin Staining -Temperature (Iman-wound Skin No Abnormality Appearance) (Pt Warm) -Tenderness on Palpation (Iman-wound Yes Skin Appearance) -Ulcer Cleansing Rinsed/ Irrigated with Saline -Foul Odor after Cleansing No -Anesthetic Used 5% Lidocaine Gel #5 right superior salgado cluster -Combined with other wound No -Current Size (cm) - Length 5.2 -Current Size (cm) - Width 2.2 -Current Size (cm) - Depth 0.2 -Total Square Cm 11.44 -Date of Last Picture (Recall this 05/09/17 field) -Photo Taken Yes -Epithelialization None Present -Tunneling No -Undermining/Tunneling No -Circular Undermining No -Classification - Thickness Full Thickness without Exposed Support Structure -Exudate Amt Small (1-33%) -Exudate Type Serosanguineous -Wound Margin Distinct, Outline Attached -Granulation Amt None Present (0 %) -Granulation Quality N/A -Slough/Fibrin Yes -Necrosis Amt Large (67-100%) -Necrotic Tissue Type Adherent Slough -Structure Exposed Fascia Fat Layer Exposed -Texture (Iman-wound Skin Appearance) Friable Localized Edema Scarring -Moisture (Iman-wound Skin Appearance No Abnormality ) -Color (Iman-wound Skin Appearance) Erythema Hemosiderin Staining -Temperature (Iman-wound Skin No Abnormality Appearance) (Pt Warm) -Tenderness on Palpation (Iman-wound Yes Skin Appearance) -Ulcer Cleansing Rinsed/ Irrigated with Saline -Foul Odor after Cleansing No -Anesthetic Used 5% Lidocaine Gel [Edema Assessment] -Lower Limb Edema Present Yes -Right Calf (cm) 46.8 -Right Ankle (cm) 23.5 -Left Calf (cm) 44.5 -Left Ankle (cm) 22.0 WC - Nurse 2 - General Ulcer CM Notes Start: 05/09/17 11:19 Freq: Status: Active Protocol: Activity Type Activity Date Activity User E-Sign Co-Sign Detail Recorded Client Recorded Date Recorded By Document 05/09/17 12:15 MW [id number] 05/09/17 12:27 MW 05/09/17 12:15 Wound Center Nurse 2 [Procedure/Treatment] #11 left inferior salgado -Time 12:20 -Correct Patient Yes -Correct Side, Site, Position Yes -Correct Procedure Yes -Procedure Performed Yes -Type of Procedure Debridement -Clinical Debridement Subcutaneous -Post Debridement Size (cm) - Length 1.0 -Post Debridement Size (cm) - Width 0.5 -Post Debridement Size (cm) - Depth 0.1 -Total Square Cm 0.50 -Wound/Ulcer Outcome Not Healed -Ulcer Cleansing Rinsed/ Irrigated with Saline -Foul Odor after Cleansing No -Bioengineered Tissue No -Bleeding Controlled with Pressure -Treatment Response Procedure Tolerated Well #10 left medial salgado cluster -Time 12:21 -Correct Patient Yes -Correct Side, Site, Position Yes -Correct Procedure Yes -Procedure Performed Yes -Type of Procedure Debridement -Clinical Debridement Subcutaneous -Post Debridement Size (cm) - Length 4.0 -Post Debridement Size (cm) - Width 1.7 -Post Debridement Size (cm) - Depth 0.1 -Total Square Cm 6.80 -Wound/Ulcer Outcome Not Healed -Ulcer Cleansing Rinsed/ Irrigated with Saline -Foul Odor after Cleansing No -Bioengineered Tissue No -Bleeding Controlled with Pressure -Treatment Response Procedure Tolerated Well #9 left superior salgado cluster -Time 12:21 -Correct Patient Yes -Correct Side, Site, Position Yes -Correct Procedure Yes -Procedure Performed Yes -Type of Procedure Debridement -Clinical Debridement Subcutaneous -Post Debridement Size (cm) - Length 4.5 -Post Debridement Size (cm) - Width 6.2 -Post Debridement Size (cm) - Depth 0.1 -Total Square Cm 27.90 -Wound/Ulcer Outcome Not Healed -Ulcer Cleansing Rinsed/ Irrigated with Saline -Foul Odor after Cleansing No -Bioengineered Tissue No -Bleeding Controlled with Pressure -Treatment Response Procedure Tolerated Well #8 right posterior LE -Time 12:22 -Correct Patient Yes -Correct Side, Site, Position Yes -Correct Procedure Yes -Procedure Performed Yes -Type of Procedure Debridement -Clinical Debridement Subcutaneous -Post Debridement Size (cm) - Length 0.7 -Post Debridement Size (cm) - Width 0.3 -Post Debridement Size (cm) - Depth 0.1 -Total Square Cm 0.21 -Wound/Ulcer Outcome Not Healed -Ulcer Cleansing Rinsed/ Irrigated with Saline -Foul Odor after Cleansing No -Bioengineered Tissue No -Bleeding Controlled with Pressure -Treatment Response Procedure Tolerated Well #7 right inferior salgado -Time 12:22 -Correct Patient Yes -Correct Side, Site, Position Yes -Correct Procedure Yes -Procedure Performed Yes -Type of Procedure Debridement -Clinical Debridement Subcutaneous -Post Debridement Size (cm) - Length 1.0 -Post Debridement Size (cm) - Width 1.0 -Post Debridement Size (cm) - Depth 0.2 -Total Square Cm 1.00 -Wound/Ulcer Outcome Not Healed -Ulcer Cleansing Rinsed/ Irrigated with Saline -Foul Odor after Cleansing No -Bioengineered Tissue No -Bleeding Controlled with Pressure -Treatment Response Procedure Tolerated Well #6 right medial salgado cluster -Time 12:22 -Correct Patient Yes -Correct Side, Site, Position Yes -Correct Procedure Yes -Procedure Performed Yes -Type of Procedure Debridement -Clinical Debridement Subcutaneous -Post Debridement Size (cm) - Length 7.5 -Post Debridement Size (cm) - Width 3.0 -Post Debridement Size (cm) - Depth 0.2 -Total Square Cm 22.50 -Wound/Ulcer Outcome Not Healed -Ulcer Cleansing Rinsed/ Irrigated with Saline -Foul Odor after Cleansing No -Bioengineered Tissue No -Bleeding Controlled with Pressure -Treatment Response Procedure Tolerated Well #5 right superior salgado cluster -Time 12:23 -Correct Patient Yes -Correct Side, Site, Position Yes -Correct Procedure Yes -Procedure Performed Yes -Type of Procedure Debridement -Clinical Debridement Subcutaneous -Post Debridement Size (cm) - Length 5.5 -Post Debridement Size (cm) - Width 2.0 -Post Debridement Size (cm) - Depth 0.2 -Total Square Cm 11.00 -Wound/Ulcer Outcome Not Healed -Ulcer Cleansing Rinsed/ Irrigated with Saline -Foul Odor after Cleansing No -Bioengineered Tissue No -Bleeding Controlled with Pressure -Treatment Response Procedure Tolerated Well [See Physician Procedure note for Specifics] Pain Scale: 0-10 Numeric [Pain] -Is Patient Pain Free? Yes Musculoskeletal: No Tenderness to Palpation of Joints or Extremities Lymphatic: No Cervical, Supraclavicular, or Inguinal Adenopathy Neurological: Cranial nerves II-XII grossly intact, Neuro grossly intact Psych/Mental Status: Normal Affect, Appropriate Debridement Note Post-Debridement Measurements/Treatment WC - Nurse 2 - General Ulcer CM Notes Start: 05/09/17 11:19 Freq: Status: Active Protocol: Activity Type Activity Date Activity User E-Sign Co-Sign Detail Recorded Client Recorded Date Recorded By Document 05/09/17 12:15 MW [id number] 05/09/17 12:27 MW 05/09/17 12:15 Wound Center Nurse 2 #11 left inferior salgado -Time 12:20 -Correct Patient Yes -Correct Side, Site, Position Yes -Correct Procedure Yes -Procedure Performed Yes -Type of Procedure Debridement -Clinical Debridement Subcutaneous -Post Debridement Size (cm) - Length 1.0 -Post Debridement Size (cm) - Width 0.5 -Post Debridement Size (cm) - Depth 0.1 -Total Square Cm 0.50 -Wound/Ulcer Outcome Not Healed -Ulcer Cleansing Rinsed/ Irrigated with Saline -Foul Odor after Cleansing No -Bioengineered Tissue No -Bleeding Controlled with Pressure -Treatment Response Procedure Tolerated Well #10 left medial salgado cluster -Time 12:21 -Correct Patient Yes -Correct Side, Site, Position Yes -Correct Procedure Yes -Procedure Performed Yes -Type of Procedure Debridement -Clinical Debridement Subcutaneous -Post Debridement Size (cm) - Length 4.0 -Post Debridement Size (cm) - Width 1.7 -Post Debridement Size (cm) - Depth 0.1 -Total Square Cm 6.80 -Wound/Ulcer Outcome Not Healed -Ulcer Cleansing Rinsed/ Irrigated with Saline -Foul Odor after Cleansing No -Bioengineered Tissue No -Bleeding Controlled with Pressure -Treatment Response Procedure Tolerated Well #9 left superior salgado cluster -Time 12:21 -Correct Patient Yes -Correct Side, Site, Position Yes -Correct Procedure Yes -Procedure Performed Yes -Type of Procedure Debridement -Clinical Debridement Subcutaneous -Post Debridement Size (cm) - Length 4.5 -Post Debridement Size (cm) - Width 6.2 -Post Debridement Size (cm) - Depth 0.1 -Total Square Cm 27.90 -Wound/Ulcer Outcome Not Healed -Ulcer Cleansing Rinsed/ Irrigated with Saline -Foul Odor after Cleansing No -Bioengineered Tissue No -Bleeding Controlled with Pressure -Treatment Response Procedure Tolerated Well #8 right posterior LE -Time 12:22 -Correct Patient Yes -Correct Side, Site, Position Yes -Correct Procedure Yes -Procedure Performed Yes -Type of Procedure Debridement -Clinical Debridement Subcutaneous -Post Debridement Size (cm) - Length 0.7 -Post Debridement Size (cm) - Width 0.3 -Post Debridement Size (cm) - Depth 0.1 -Total Square Cm 0.21 -Wound/Ulcer Outcome Not Healed -Ulcer Cleansing Rinsed/ Irrigated with Saline -Foul Odor after Cleansing No -Bioengineered Tissue No -Bleeding Controlled with Pressure -Treatment Response Procedure Tolerated Well #7 right inferior salgado -Time 12:22 -Correct Patient Yes -Correct Side, Site, Position Yes -Correct Procedure Yes -Procedure Performed Yes -Type of Procedure Debridement -Clinical Debridement Subcutaneous -Post Debridement Size (cm) - Length 1.0 -Post Debridement Size (cm) - Width 1.0 -Post Debridement Size (cm) - Depth 0.2 -Total Square Cm 1.00 -Wound/Ulcer Outcome Not Healed -Ulcer Cleansing Rinsed/ Irrigated with Saline -Foul Odor after Cleansing No -Bioengineered Tissue No -Bleeding Controlled with Pressure -Treatment Response Procedure Tolerated Well #6 right medial salgado cluster -Time 12:22 -Correct Patient Yes -Correct Side, Site, Position Yes -Correct Procedure Yes -Procedure Performed Yes -Type of Procedure Debridement -Clinical Debridement Subcutaneous -Post Debridement Size (cm) - Length 7.5 -Post Debridement Size (cm) - Width 3.0 -Post Debridement Size (cm) - Depth 0.2 -Total Square Cm 22.50 -Wound/Ulcer Outcome Not Healed -Ulcer Cleansing Rinsed/ Irrigated with Saline -Foul Odor after Cleansing No -Bioengineered Tissue No -Bleeding Controlled with Pressure -Treatment Response Procedure Tolerated Well #5 right superior salgado cluster -Time 12:23 -Correct Patient Yes -Correct Side, Site, Position Yes -Correct Procedure Yes -Procedure Performed Yes -Type of Procedure Debridement -Clinical Debridement Subcutaneous -Post Debridement Size (cm) - Length 5.5 -Post Debridement Size (cm) - Width 2.0 -Post Debridement Size (cm) - Depth 0.2 -Total Square Cm 11.00 -Wound/Ulcer Outcome Not Healed -Ulcer Cleansing Rinsed/ Irrigated with Saline -Foul Odor after Cleansing No -Bioengineered Tissue No -Bleeding Controlled with Pressure -Treatment Response Procedure Tolerated Well Pain Scale: 0-10 Numeric Is Patient Pain Free? Yes Wound debrided: Superior salgado cluster Type of Debridement: Excisional debridement Anesthesia Used: 5% Lidocaine Gel Depth: Down to and including healthy tissue, in the subcutaneous layer Percentage of wound debrided: 100 Instrument Used: 5mm curette Tissue Removed: slough and devitalized tissue Severity: Limited To Skin Breakdown Amount of bleeding with debridement: Mild Bleeding Controlled with: Compression and gauze Patient tolerated procedure well - Additional Wound Wound debrided: Right medial and cluster Type of Debridement: Excisional debridement Anesthesia Used: 5% Lidocaine Gel Depth: Down to and including healthy tissue, in the subcutaneous layer, to muscle Percentage of wound debrided: 100 Instrument Used: 5mm curette Tissue Removed: Slough Severity: Limited To Skin Breakdown Amount of bleeding with debridement: Mild - Additional Wound Wound debrided: The posterior lower leg Type of Debridement: Excisional debridement Anesthesia Used: 5% Lidocaine Gel Depth: Down to and including healthy tissue, in the subcutaneous layer Percentage of wound debrided: 100 Instrument Used: 5mm curette Tissue Removed: slough - Additional Wound Wound debrided: Superior salgado cluster Type of Debridement: Excisional debridement Anesthesia Used: 5% Lidocaine Gel Depth: Down to and including healthy tissue, in the subcutaneous layer Percentage of wound debrided: 100 Instrument Used: 5mm curette Tissue Removed: slough Severity: Limited To Skin Breakdown Amount of bleeding with debridement: Mild Bleeding Controlled with: Compression and gauze - Additional Wound Wound debrided: Left medial salgado cluster Type of Debridement: Excisional debridement Anesthesia Used: 5% Lidocaine Gel Depth: Down to and including healthy tissue, in the subcutaneous layer Instrument Used: 5mm curette Tissue Removed: Slough Severity: Limited To Skin Breakdown Amount of bleeding with debridement: Mild Bleeding Controlled with: Compression and gauze Patient tolerated procedure: Patient tolerated procedure well - Additional Wound Wound debrided: Left inferior salgado Type of Debridement: Excisional debridement Anesthesia Used: 5% Lidocaine Gel Depth: Down to and including healthy tissue, in the subcutaneous layer Percentage of wound debrided: 100 Instrument Used: 5mm curette Tissue Removed: slough Severity: Limited To Skin Breakdown Amount of bleeding with debridement: Mild Bleeding Controlled with: Compression and gauze Patient tolerated procedure: Patient tolerated procedure well Assessment/Plan Anaerobic cultures taken of ulcers right leg Active Problems Atherosclerosis of both lower extremities with bilateral ulceration (Acute) Infected bite wound (Acute) Infected open wound (Acute) Assessment: Ulcers bilateral lower legs in clusters. Bilateral lower leg edema. Diabetes type 2 uncontrolled. 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 Renal insufficiency grade 3 Plan: Wash legs with Hibiclens and apply Aquacel silver moistened to all wound areas cover with Adaptic wrapped with gauze and Isrrael. Apply a double layer Tubigrip's to bilateral lower legs. Cultures were taken of bilateral lower legs. Continue taking antibiotic given to at the hospital. Follow-up in 1 week
== END 2017-05-14 23:59 ==
LOC: WC 11:03
PROVIDERS: Family Provider Family Medicine; PCP Family Medicine; Visit Provider Nurse Practitioner
DX: E11.622 Type 2 diabetes mellitus with other skin ulcer (principal); I70.248 Atherosclerosis of native arteries of left leg with ulceration of other part of lower leg; I70.238 Atherosclerosis of native arteries of right leg with ulceration of other part of lower leg; L97.821 Non-pressure chronic ulcer of other part of left lower leg limited to breakdown of skin; L97.811 Non-pressure chronic ulcer of other part of right lower leg limited to breakdown of skin; E11.51 Type 2 diabetes mellitus with diabetic peripheral angiopathy without gangrene; R60.0 Localized edema; E11.65 Type 2 diabetes mellitus with hyperglycemia; E11.40 Type 2 diabetes mellitus with diabetic neuropathy, unspecified; E66.01 Morbid (severe) obesity due to excess calories; Z68.43 Body mass index [BMI] 50.0-59.9, adult; Z71.3 Dietary counseling and surveillance; E11.22 Type 2 diabetes mellitus with diabetic chronic kidney disease; N18.4 Chronic kidney disease, stage 4 (severe); Z79.899 Other long term (current) drug therapy; Z79.02 Long term (current) use of antithrombotics/antiplatelets; Z79.4 Long term (current) use of insulin; Z87.891 Personal history of nicotine dependence
CPT/HCPCS: 11042; 11045; 87070; 87075; 87077; 87186; 87205; 99213; G0463

== ENCOUNTER → 2017-05-09 15:59 | Outpatient (CLI) | payer MEDICAID, MEDICARE, SELFPAY | PROVIDERS: Family Provider Family Medicine; PCP Family Medicine; Visit Provider Nurse Practitioner | DX: L08.9 Local infection of the skin and subcutaneous tissue, unspecified (principal) ==

== ENCOUNTER 2017-06-13 10:15 | Outpatient (RCR) | payer MEDICARE, MEDICAID, SELFPAY ==
[2017-05-15 01:16] VITALS: PULSE 77; RESP 18; TEMP 36.8
[2017-05-16 10:57] VITALS: BP 118/45; PULSE 68; RESP 18; TEMP 36.8
--- NOTE | 2017-05-16 13:53 | PN.PCM_ITS ---
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 Status: Acute Current Visit: Yes Code(s): I70.239 - Atherosclerosis of [place] arteries of right leg with ulceration of unspecified site; I70.249 - Atherosclerosis of [place] arteries of left leg with ulceration of unspecified site (2) Infected open wound Status: Acute Current Visit: Yes Code(s): T14.8XXA - Other injury of unspecified body region, initial encounter; L08.9 - Local infection of the skin and subcutaneous tissue, unspecified (3) Open wound Status: Acute Current Visit: Yes Code(s): T14.8 - Other injury of unspecified body region (4) Peripheral vascular occlusive disease Status: Acute Current Visit: Yes Code(s): I73.9 - Peripheral vascular disease, unspecified (5) Atherosclerosis of left lower extremity with ulceration Status: Chronic Current Visit: Yes Code(s): I70.249 - Atherosclerosis of [place] arteries of left leg with ulceration of unspecified site (6) Bilateral edema of lower extremity Status: Chronic Current Visit: Yes Code(s): R60.0 - Localized edema (7) Chronic renal insufficiency, stage III (moderate) Status: Chronic Current Visit: Yes Code(s): N18.3 - Chronic kidney disease, stage 3 (moderate) (8) Diabetes mellitus type 2, uncontrolled, with complications Status: Chronic Current Visit: Yes Code(s): E11.8 - Type 2 diabetes mellitus with unspecified complications; E11.65 - Type 2 diabetes mellitus with hyperglycemia (9) Morbid obesity with BMI of 50.0-59.9, adult Status: Chronic Current Visit: Yes Code(s): E66.01 - Morbid (severe) obesity due to excess calories; Z68.43 - Body mass index (BMI) 50-59.9 , adult Type of Wound Date of Service: 05/16/17 Chief Complaint: Bilateral lower leg ulcers infected History of Wound: 61-year-old morbid obese woman with diabetes and has atherosclerosis disease has still not seen Dr. De La Cruz was discharged 2 months ago and due to insurance problems and now has blisters that are open ulcers on bilateral lower legs. Was seen at the [facility] and put on antibiotics but given no dressing changes. Patient was referred then to wound center. Progress of Wound: Bilateral lower leg ulcers are improving the right posterior lower extremity healed. Patient was very emotional today because her son committed suicide by hanging this last past week from drugs and depression. Patient still has a lot of edema in her lower extremities. Positive cultures were obtained from wounds ,patient is to start on new antibiotic. - Physical Exam Vital Signs Temp Pulse Resp BP 98.3 F 68 18 118/45 L 05/16/17 10:57 05/16/17 10:57 05/16/17 10:57 05/16/17 10:57 General: Oriented x3, Cooperative, Well developed HEENT: Atraumatic, PERRLA Oral: Moist Mucosa Neck: Supple, No JVD Lungs: Clear to auscultation, Normal air movement Cardiovascular: Regular rate, Regular Rhythm Abdomen: Bowel Sounds Present, Soft, Non Tender, No Hepato-splenomegaly Extremities: No clubbing, No edema, - - Lateral lower leg ulcer clusters Wound Measurements and Assessment WC - Nurse 1 - General Ulcer Measurement Start: 05/16/17 10:57 Freq: Status: Active Protocol: Activity Type Activity Date Activity User E-Sign Co-Sign Detail Recorded Client Recorded Date Recorded By Document 05/16/17 10:57 [id number] 05/16/17 11:27 05/16/17 10:57 Wound Center Nurse 1 [Ulcer Assessment] #11 left inferior salgado -Combined with other wound No -Current Size (cm) - Length 0 -Current Size (cm) - Width 0 -Current Size (cm) - Depth 0 -Total Square Cm 0 -Date of Last Picture (Recall this 05/16/17 field) -Photo Taken Yes -Epithelialization Large 67-100% -Tunneling No -Undermining/Tunneling No -Circular Undermining No -Classification - Thickness Full Thickness without Exposed Support Structure -Exudate Amt None Present (0 %) -Wound Margin Distinct, Outline Attached -Granulation Amt None Present (0 %) -Slough/Fibrin No -Necrosis Amt None Present (0 %) -Structure Exposed None/Limited to Skin Breakdown -Texture (Iman-wound Skin Appearance) Localized Edema Scarring -Moisture (Iman-wound Skin Appearance Dry/Scaly ) -Color (Iman-wound Skin Appearance) No Abnormality -Temperature (Iman-wound Skin No Abnormality Appearance) (Pt Warm) -Tenderness on Palpation (Iman-wound No Skin Appearance) -Ulcer Cleansing Rinsed/ Irrigated with Saline -Foul Odor after Cleansing No #10 left medial salgado cluster -Combined with other wound No -Current Size (cm) - Length 3.6 -Current Size (cm) - Width 1.5 -Current Size (cm) - Depth 0.1 -Total Square Cm 5.40 -Photo Taken No -Epithelialization Small 1-33% -Tunneling No -Undermining/Tunneling No -Circular Undermining No -Classification - Thickness Full Thickness without Exposed Support Structure -Exudate Amt Small (1-33%) -Exudate Type Serosanguineous -Wound Margin Distinct, Outline Attached -Granulation Amt Small (1-33%) -Granulation Quality [place] -Slough/Fibrin Yes -Necrosis Amt Large (67-100%) -Necrotic Tissue Type Adherent Slough -Structure Exposed Fascia Fat Layer Exposed -Texture (Iman-wound Skin Appearance) Localized Edema Scarring -Moisture (Iman-wound Skin Appearance No Abnormality ) -Color (Iman-wound Skin Appearance) Erythema Hemosiderin Staining -Temperature (Iman-wound Skin No Abnormality Appearance) (Pt Warm) -Tenderness on Palpation (Iman-wound No Skin Appearance) -Ulcer Cleansing Rinsed/ Irrigated with Saline -Foul Odor after Cleansing No -Anesthetic Used 5% Lidocaine Gel #9 left superior salgado cluster -Combined with other wound No -Current Size (cm) - Length 4.4 -Current Size (cm) - Width 4.5 -Current Size (cm) - Depth 0.1 -Total Square Cm 19.80 -Photo Taken No -Epithelialization Small 1-33% -Tunneling No -Undermining/Tunneling No -Circular Undermining No -Classification - Thickness Full Thickness without Exposed Support Structure -Exudate Amt Small (1-33%) -Exudate Type Serosanguineous -Wound Margin Distinct, Outline Attached -Granulation Amt Medium (34-66%) -Granulation Quality [place] -Slough/Fibrin Yes -Necrosis Amt Medium (34-66%) -Necrotic Tissue Type Adherent Slough -Structure Exposed Fascia Fat Layer Exposed -Texture (Iman-wound Skin Appearance) Localized Edema Scarring -Moisture (Iman-wound Skin Appearance No Abnormality ) -Color (Iman-wound Skin Appearance) Erythema Hemosiderin Staining -Temperature (Iman-wound Skin No Abnormality Appearance) (Pt Warm) -Tenderness on Palpation (Iman-wound No Skin Appearance) -Ulcer Cleansing Rinsed/ Irrigated with Saline -Foul Odor after Cleansing No -Anesthetic Used 5% Lidocaine Gel #8 right posterior LE -Combined with other wound No -Current Size (cm) - Length 0 -Current Size (cm) - Width 0 -Current Size (cm) - Depth 0 -Total Square Cm 0 -Date of Last Picture (Recall this 05/16/17 field) -Photo Taken Yes -Epithelialization Large 67-100% -Tunneling No -Undermining/Tunneling No -Circular Undermining No -Classification - Thickness Full Thickness without Exposed Support Structure -Exudate Amt None Present (0 %) -Wound Margin Distinct, Outline Attached -Granulation Amt Large (67-100%) -Granulation Quality [place] -Slough/Fibrin No -Necrosis Amt None Present (0 %) -Structure Exposed None/Limited to Skin Breakdown -Texture (Iman-wound Skin Appearance) Localized Edema Scarring -Moisture (Iman-wound Skin Appearance Dry/Scaly ) -Color (Iman-wound Skin Appearance) No Abnormality -Temperature (Iman-wound Skin No Abnormality Appearance) (Pt Warm) -Tenderness on Palpation (Iman-wound No Skin Appearance) -Ulcer Cleansing Rinsed/ Irrigated with Saline -Foul Odor after Cleansing No #7 right inferior salgado -Combined with other wound No -Current Size (cm) - Length 0.3 -Current Size (cm) - Width 0.2 -Current Size (cm) - Depth 0.1 -Total Square Cm 0.06 -Photo Taken No -Epithelialization Small 1-33% -Tunneling No -Undermining/Tunneling No -Circular Undermining No -Classification - Thickness Full Thickness without Exposed Support Structure -Exudate Amt Small (1-33%) -Exudate Type Serosanguineous -Wound Margin Distinct, Outline Attached -Granulation Amt Small (1-33%) -Granulation Quality [place] -Slough/Fibrin Yes -Necrosis Amt Large (67-100%) -Necrotic Tissue Type Adherent Slough -Structure Exposed Fascia Fat Layer Exposed -Texture (Iman-wound Skin Appearance) Localized Edema Scarring -Moisture (Iman-wound Skin Appearance No Abnormality ) -Color (Iman-wound Skin Appearance) Erythema Hemosiderin Staining -Temperature (Iman-wound Skin No Abnormality Appearance) (Pt Warm) -Tenderness on Palpation (Iman-wound No Skin Appearance) -Ulcer Cleansing Rinsed/ Irrigated with Saline -Foul Odor after Cleansing No -Anesthetic Used 5% Lidocaine Gel #6 right medial salgado cluster -Combined with other wound No -Current Size (cm) - Length 5.4 -Current Size (cm) - Width 1.0 -Current Size (cm) - Depth 0.1 -Total Square Cm 5.40 -Photo Taken No -Epithelialization Small 1-33% -Tunneling No -Undermining/Tunneling No -Circular Undermining No -Classification - Thickness Full Thickness without Exposed Support Structure -Exudate Amt Small (1-33%) -Exudate Type Serosanguineous -Wound Margin Distinct, Outline Attached -Granulation Amt Small (1-33%) -Granulation Quality [place] -Slough/Fibrin Yes -Necrosis Amt Medium (34-66%) -Necrotic Tissue Type Adherent Slough -Structure Exposed Fascia Fat Layer Exposed -Texture (Iman-wound Skin Appearance) Localized Edema Scarring -Moisture (Iman-wound Skin Appearance No Abnormality ) -Color (Iman-wound Skin Appearance) Erythema Hemosiderin Staining -Temperature (Iman-wound Skin No Abnormality Appearance) (Pt Warm) -Tenderness on Palpation (Iman-wound No Skin Appearance) -Ulcer Cleansing Rinsed/ Irrigated with Saline -Foul Odor after Cleansing No -Anesthetic Used 5% Lidocaine Gel #5 right superior salgado cluster -Combined with other wound No -Current Size (cm) - Length 4.7 -Current Size (cm) - Width 1.9 -Current Size (cm) - Depth 0.1 -Total Square Cm 8.93 -Photo Taken No -Epithelialization Small 1-33% -Tunneling No -Undermining/Tunneling No -Circular Undermining No -Classification - Thickness Full Thickness without Exposed Support Structure -Exudate Amt Small (1-33%) -Exudate Type Serosanguineous -Wound Margin Distinct, Outline Attached -Granulation Amt Small (1-33%) -Granulation Quality [place] -Slough/Fibrin Yes -Necrosis Amt Large (67-100%) -Necrotic Tissue Type Adherent Slough -Structure Exposed Fascia Fat Layer Exposed -Texture (Iman-wound Skin Appearance) Localized Edema Scarring -Color (Iman-wound Skin Appearance) No Abnormality -Temperature (Iman-wound Skin No Abnormality Appearance) (Pt Warm) -Tenderness on Palpation (Iman-wound No Skin Appearance) -Ulcer Cleansing Rinsed/ Irrigated with Saline -Foul Odor after Cleansing No -Anesthetic Used 5% Lidocaine Gel [Edema Assessment] -Lower Limb Edema Present Yes -Right Calf (cm) 43.5 -Right Ankle (cm) 23.0 -Left Calf (cm) 40.0 -Left Ankle (cm) 22.0 WC - Nurse 2 - General Ulcer CM Notes Start: 05/16/17 10:57 Freq: Status: Active Protocol: Activity Type Activity Date Activity User E-Sign Co-Sign Detail Recorded Client Recorded Date Recorded By Document 05/16/17 12:51 MW [id number] 05/16/17 12:54 MW 05/16/17 12:51 Wound Center Nurse 2 [Procedure/Treatment] #10 left medial salgado cluster -Time 12:51 -Correct Patient Yes -Correct Side, Site, Position Yes -Correct Procedure Yes -Procedure Performed Yes -Type of Procedure Debridement -Clinical Debridement Subcutaneous -Post Debridement Size (cm) - Length 0.5 -Post Debridement Size (cm) - Width 0.3 -Post Debridement Size (cm) - Depth 0.1 -Total Square Cm 0.15 -Wound/Ulcer Outcome Not Healed -Ulcer Cleansing Rinsed/ Irrigated with Saline -Foul Odor after Cleansing No -Bioengineered Tissue No -Bleeding Controlled with Pressure -Treatment Response Procedure Tolerated Well #9 left superior salgado cluster -Time 12:52 -Correct Patient Yes -Correct Side, Site, Position Yes -Correct Procedure Yes -Procedure Performed Yes -Type of Procedure Debridement -Clinical Debridement Subcutaneous -Post Debridement Size (cm) - Length 4.2 -Post Debridement Size (cm) - Width 0.8 -Post Debridement Size (cm) - Depth 0.2 -Total Square Cm 3.36 -Wound/Ulcer Outcome Not Healed -Ulcer Cleansing Rinsed/ Irrigated with Saline -Foul Odor after Cleansing No -Bioengineered Tissue No -Bleeding Controlled with Pressure -Treatment Response Procedure Tolerated Well #7 right inferior salgado -Time 12:52 -Correct Patient Yes -Correct Side, Site, Position Yes -Correct Procedure Yes -Procedure Performed Yes -Type of Procedure Debridement -Clinical Debridement Subcutaneous -Post Debridement Size (cm) - Length 0.4 -Post Debridement Size (cm) - Width 0.3 -Post Debridement Size (cm) - Depth 0.1 -Total Square Cm 0.12 -Wound/Ulcer Outcome Not Healed -Ulcer Cleansing Rinsed/ Irrigated with Saline -Foul Odor after Cleansing No -Bioengineered Tissue No -Bleeding Controlled with Pressure -Treatment Response Procedure Tolerated Well #6 right medial salgado cluster -Time 12:52 -Correct Patient Yes -Correct Side, Site, Position Yes -Correct Procedure Yes -Procedure Performed Yes -Type of Procedure Debridement -Clinical Debridement Subcutaneous -Post Debridement Size (cm) - Length 4.0 -Post Debridement Size (cm) - Width 0.7 -Post Debridement Size (cm) - Depth 0.2 -Total Square Cm 2.80 -Wound/Ulcer Outcome Not Healed -Ulcer Cleansing Rinsed/ Irrigated with Saline -Foul Odor after Cleansing No -Bioengineered Tissue No -Bleeding Controlled with Pressure -Treatment Response Procedure Tolerated Well #5 right superior salgado cluster -Time 12:53 -Correct Patient Yes -Correct Side, Site, Position Yes -Correct Procedure Yes -Procedure Performed Yes -Type of Procedure Debridement -Clinical Debridement Subcutaneous -Post Debridement Size (cm) - Length 4.3 -Post Debridement Size (cm) - Width 0.4 -Post Debridement Size (cm) - Depth 0.2 -Total Square Cm 1.72 -Wound/Ulcer Outcome Not Healed -Ulcer Cleansing Rinsed/ Irrigated with Saline -Foul Odor after Cleansing No -Bioengineered Tissue No -Bleeding Controlled with Pressure -Treatment Response Procedure Tolerated Well [See Physician Procedure note for Specifics] Pain Scale: 0-10 Numeric [Pain] -Is Patient Pain Free? Yes Musculoskeletal: No Tenderness to Palpation of Joints or Extremities Lymphatic: No Cervical, Supraclavicular, or Inguinal Adenopathy Neurological: Cranial nerves II-XII grossly intact, Neuro grossly intact Psych/Mental Status: Normal Affect, Appropriate Debridement Note Post-Debridement Measurements/Treatment WC - Nurse 2 - General Ulcer CM Notes Start: 05/16/17 10:57 Freq: Status: Active Protocol: Activity Type Activity Date Activity User E-Sign Co-Sign Detail Recorded Client Recorded Date Recorded By Document 05/16/17 12:51 MW [id number] 05/16/17 12:54 MW 05/16/17 12:51 Wound Center Nurse 2 #10 left medial salgado cluster -Time 12:51 -Correct Patient Yes -Correct Side, Site, Position Yes -Correct Procedure Yes -Procedure Performed Yes -Type of Procedure Debridement -Clinical Debridement Subcutaneous -Post Debridement Size (cm) - Length 0.5 -Post Debridement Size (cm) - Width 0.3 -Post Debridement Size (cm) - Depth 0.1 -Total Square Cm 0.15 -Wound/Ulcer Outcome Not Healed -Ulcer Cleansing Rinsed/ Irrigated with Saline -Foul Odor after Cleansing No -Bioengineered Tissue No -Bleeding Controlled with Pressure -Treatment Response Procedure Tolerated Well #9 left superior salgado cluster -Time 12:52 -Correct Patient Yes -Correct Side, Site, Position Yes -Correct Procedure Yes -Procedure Performed Yes -Type of Procedure Debridement -Clinical Debridement Subcutaneous -Post Debridement Size (cm) - Length 4.2 -Post Debridement Size (cm) - Width 0.8 -Post Debridement Size (cm) - Depth 0.2 -Total Square Cm 3.36 -Wound/Ulcer Outcome Not Healed -Ulcer Cleansing Rinsed/ Irrigated with Saline -Foul Odor after Cleansing No -Bioengineered Tissue No -Bleeding Controlled with Pressure -Treatment Response Procedure Tolerated Well #7 right inferior salgado -Time 12:52 -Correct Patient Yes -Correct Side, Site, Position Yes -Correct Procedure Yes -Procedure Performed Yes -Type of Procedure Debridement -Clinical Debridement Subcutaneous -Post Debridement Size (cm) - Length 0.4 -Post Debridement Size (cm) - Width 0.3 -Post Debridement Size (cm) - Depth 0.1 -Total Square Cm 0.12 -Wound/Ulcer Outcome Not Healed -Ulcer Cleansing Rinsed/ Irrigated with Saline -Foul Odor after Cleansing No -Bioengineered Tissue No -Bleeding Controlled with Pressure -Treatment Response Procedure Tolerated Well #6 right medial salgado cluster -Time 12:52 -Correct Patient Yes -Correct Side, Site, Position Yes -Correct Procedure Yes -Procedure Performed Yes -Type of Procedure Debridement -Clinical Debridement Subcutaneous -Post Debridement Size (cm) - Length 4.0 -Post Debridement Size (cm) - Width 0.7 -Post Debridement Size (cm) - Depth 0.2 -Total Square Cm 2.80 -Wound/Ulcer Outcome Not Healed -Ulcer Cleansing Rinsed/ Irrigated with Saline -Foul Odor after Cleansing No -Bioengineered Tissue No -Bleeding Controlled with Pressure -Treatment Response Procedure Tolerated Well #5 right superior salgado cluster -Time 12:53 -Correct Patient Yes -Correct Side, Site, Position Yes -Correct Procedure Yes -Procedure Performed Yes -Type of Procedure Debridement -Clinical Debridement Subcutaneous -Post Debridement Size (cm) - Length 4.3 -Post Debridement Size (cm) - Width 0.4 -Post Debridement Size (cm) - Depth 0.2 -Total Square Cm 1.72 -Wound/Ulcer Outcome Not Healed -Ulcer Cleansing Rinsed/ Irrigated with Saline -Foul Odor after Cleansing No -Bioengineered Tissue No -Bleeding Controlled with Pressure -Treatment Response Procedure Tolerated Well Pain Scale: 0-10 Numeric Is Patient Pain Free? Yes Wound debrided: Right superior lower leg cluster Type of Debridement: Excisional debridement Anesthesia Used: 5% Lidocaine Gel Depth: Down to and including healthy tissue, in the subcutaneous layer Percentage of wound debrided: 100 Instrument Used: 5mm curette Tissue Removed: slough and fibrin Severity: Limited To Skin Breakdown Amount of bleeding with debridement: Mild Bleeding Controlled with: Compression and gauze Patient tolerated procedure well - Additional Wound Wound debrided: Right inferior lower leg cluster Type of Debridement: Excisional debridement Anesthesia Used: 5% Lidocaine Gel Depth: Down to and including healthy tissue, in the subcutaneous layer Percentage of wound debrided: 100 Instrument Used: 5mm curette Tissue Removed: slough and fibrin Severity: Limited To Skin Breakdown Amount of bleeding with debridement: Mild Bleeding Controlled with: Compression and gauze Patient tolerated procedure: Patient tolerated procedure well - Additional Wound Wound debrided: Right medial ankle Type of Debridement: Excisional debridement Anesthesia Used: 5% Lidocaine Gel Depth: Down to and including healthy tissue, in the subcutaneous layer Percentage of wound debrided: 100 Instrument Used: 5mm curette Tissue Removed: Slough and fibrin Severity: Limited To Skin Breakdown Amount of bleeding with debridement: Mild Bleeding Controlled with: Compression and gauze - Additional Wound Wound debrided: Left superior cluster ulcer Type of Debridement: Excisional debridement Anesthesia Used: 5% Lidocaine Gel Depth: Down to and including healthy tissue, in the subcutaneous layer Percentage of wound debrided: 100 Instrument Used: 5mm curette Tissue Removed: slough and fibrin Severity: Limited To Skin Breakdown Amount of bleeding with debridement: Mild Bleeding Controlled with: Compression and gauze Patient tolerated procedure: Patient tolerated procedure well - Additional Wound Wound debrided: Left medial ulcer cluster lower extremity Type of Debridement: Excisional debridement Anesthesia Used: 5% Lidocaine Gel Depth: Down to and including healthy tissue, in the subcutaneous layer Percentage of wound debrided: 100 Instrument Used: 5mm curette Tissue Removed: Fibrin and slough Severity: Limited To Skin Breakdown Amount of bleeding with debridement: Mild Bleeding Controlled with: Compression and gauze Patient tolerated procedure: Patient tolerated procedure well Assessment/Plan Active Problems 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 Bilateral lower leg edema. Diabetes type 2 uncontrolled. 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 Renal insufficiency grade 3. Infected ulcers Plan: Wash legs with Hibiclens and apply Aquacel silver moistened to all wound areas cover with Adaptic wrapped with gauze and Isrrael. Apply a double layer Tubigrip's to bilateral lower legs. Continue antibiotic therapy. Follow-up in 2 week
[2017-05-30 09:57] VITALS: RESP 20; TEMP 36.6
--- NOTE | 2017-05-30 11:49 | PN.PCM_ITS ---
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 Status: Acute Current Visit: Yes Code(s): I70.239 - Atherosclerosis of pilot station arteries of right leg with ulceration of unspecified site; I70.249 - Atherosclerosis of pilot station arteries of left leg with ulceration of unspecified site (2) Infected open wound Status: Acute Current Visit: Yes Code(s): T14.8XXA - Other injury of unspecified body region, initial encounter; L08.9 - Local infection of the skin and subcutaneous tissue, unspecified (3) Open wound Status: Acute Current Visit: Yes Code(s): T14.8 - Other injury of unspecified body region (4) Peripheral vascular occlusive disease Status: Acute Current Visit: Yes Code(s): I73.9 - Peripheral vascular disease, unspecified (5) Atherosclerosis of left lower extremity with ulceration Status: Chronic Current Visit: Yes Code(s): I70.249 - Atherosclerosis of pilot station arteries of left leg with ulceration of unspecified site (6) Bilateral edema of lower extremity Status: Chronic Current Visit: Yes Code(s): R60.0 - Localized edema (7) Chronic renal insufficiency, stage III (moderate) Status: Chronic Current Visit: Yes Code(s): N18.3 - Chronic kidney disease, stage 3 (moderate) (8) Diabetes mellitus type 2, uncontrolled, with complications Status: Chronic Current Visit: Yes Code(s): E11.8 - Type 2 diabetes mellitus with unspecified complications; E11.65 - Type 2 diabetes mellitus with hyperglycemia (9) Morbid obesity with BMI of 50.0-59.9, adult Status: Chronic Current Visit: Yes Code(s): E66.01 - Morbid (severe) obesity due to excess calories; Z68.43 - Body mass index (BMI) 50-59.9 , adult Type of Wound Date of Service: 05/30/17 Chief Complaint: Bilateral lower leg ulcers infected History of Wound: 61-year-old morbid obese woman with diabetes and has atherosclerosis disease has still not seen Dr. De La Cruz was discharged 2 months ago and due to insurance problems and now has blisters that are open ulcers on bilateral lower legs. Was seen at the [facility] and put on antibiotics but given no dressing changes. Patient was referred then to wound center. Progress of Wound: Bilateral lower leg ulcers are improving the right posterior lower extremity healed. Patient is still very emotional because her son committed suicide by hanging this last past week from drugs and depression. Patient still has a lot of edema in her lower extremities. Positive cultures were obtained from wounds ,patient finished antibiotics and it shows the wounds are healing well. - Physical Exam Vital Signs Temp Pulse Resp BP 98 F 68 20 H 118/45 L 05/30/17 09:57 05/16/17 10:57 05/30/17 09:57 05/16/17 10:57 General: Oriented x3, Cooperative, Well developed HEENT: Atraumatic, PERRLA Oral: Moist Mucosa Neck: Supple, No JVD Lungs: Clear to auscultation, Normal air movement Cardiovascular: Regular rate, Regular Rhythm Abdomen: Bowel Sounds Present, Soft, Non Tender, No Hepato-splenomegaly Extremities: No clubbing, No edema, - - biLateral lower extremity ulcers clusters Wound Measurements and Assessment WC - Nurse 1 - General Ulcer Measurement Start: 05/16/17 10:57 Freq: Status: Active Protocol: Activity Type Activity Date Activity User E-Sign Co-Sign Detail Recorded Client Recorded Date Recorded By Document 05/30/17 09:57 [facility] [id number] 05/30/17 10:20 [facility] 05/30/17 09:57 Wound Center Nurse 1 [Ulcer Assessment] #10 left medial salgado cluster -Combined with other wound No -Current Size (cm) - Length 0 -Current Size (cm) - Width 0 -Current Size (cm) - Depth 0 -Total Square Cm 0 -Epithelialization Large 67-100% -Tunneling No -Undermining/Tunneling No #9 left superior salgado cluster -Combined with other wound No -Current Size (cm) - Length 4 -Current Size (cm) - Width 0.5 -Current Size (cm) - Depth 0.1 -Total Square Cm 2.0 -Photo Taken No -Epithelialization None Present -Tunneling No -Undermining/Tunneling No -Exudate Amt Small (1-33%) -Exudate Type Serosanguineous -Wound Margin Distinct, Outline Attached -Granulation Amt Small (1-33%) -Granulation Quality Red -Slough/Fibrin Yes -Necrosis Amt Large (67-100%) -Necrotic Tissue Type Adherent Slough -Structure Exposed None/Limited to Skin Breakdown -Texture (Iman-wound Skin Appearance) Scarring -Moisture (Iman-wound Skin Appearance Dry/Scaly ) -Color (Iman-wound Skin Appearance) Assessed -Temperature (Iman-wound Skin No Abnormality Appearance) (Pt Warm) -Tenderness on Palpation (Iman-wound No Skin Appearance) -Ulcer Cleansing Rinsed/ Irrigated with Saline -Foul Odor after Cleansing No -Anesthetic Used 4% Lidocaine Solution #7 right inferior salgado -Combined with other wound No -Current Size (cm) - Length 0.1 -Current Size (cm) - Width 0.1 -Current Size (cm) - Depth 0.1 -Total Square Cm 0.01 -Photo Taken No -Epithelialization Large 67-100% #6 right medial salgado cluster -Combined with other wound No -Current Size (cm) - Length 3.6 -Current Size (cm) - Width 0.7 -Current Size (cm) - Depth 0.2 -Total Square Cm 2.52 -Photo Taken No -Epithelialization Small 1-33% -Tunneling No -Undermining/Tunneling No -Exudate Amt Small (1-33%) -Exudate Type Serous -Wound Margin Distinct, Outline Attached -Granulation Amt Small (1-33%) -Granulation Quality Red -Slough/Fibrin Yes -Necrosis Amt Large (67-100%) -Necrotic Tissue Type Adherent Slough -Structure Exposed None/Limited to Skin Breakdown -Texture (Iman-wound Skin Appearance) Scarring -Moisture (Iman-wound Skin Appearance Dry/Scaly ) -Color (Iman-wound Skin Appearance) Assessed -Temperature (Iman-wound Skin No Abnormality Appearance) (Pt Warm) -Tenderness on Palpation (Iman-wound No Skin Appearance) -Ulcer Cleansing Rinsed/ Irrigated with Saline -Foul Odor after Cleansing No -Anesthetic Used 4% Lidocaine Solution #5 right superior salgado cluster -Combined with other wound No -Current Size (cm) - Length 4 -Current Size (cm) - Width 0.5 -Current Size (cm) - Depth 0.1 -Total Square Cm 2.0 -Photo Taken No -Epithelialization Medium 34-66% -Tunneling No -Undermining/Tunneling No -Exudate Amt Small (1-33%) -Exudate Type Serous -Wound Margin Distinct, Outline Attached -Granulation Amt Small (1-33%) -Granulation Quality Red -Slough/Fibrin Yes -Necrosis Amt Large (67-100%) -Necrotic Tissue Type Adherent Slough -Structure Exposed None/Limited to Skin Breakdown -Texture (Iman-wound Skin Appearance) Scarring -Moisture (Iman-wound Skin Appearance Dry/Scaly ) -Color (Iman-wound Skin Appearance) Assessed -Temperature (Iman-wound Skin No Abnormality Appearance) (Pt Warm) -Tenderness on Palpation (Iman-wound No Skin Appearance) -Ulcer Cleansing Rinsed/ Irrigated with Saline -Foul Odor after Cleansing No -Anesthetic Used 4% Lidocaine Solution [Edema Assessment] -Lower Limb Edema Present Yes -Right Calf (cm) 44.5 -Right Ankle (cm) 24.3 -Left Calf (cm) 41.9 -Left Ankle (cm) 22.9 WC - Nurse 2 - General Ulcer CM Notes Start: 05/16/17 10:57 Freq: Status: Active Protocol: Activity Type Activity Date Activity User E-Sign Co-Sign Detail Recorded Client Recorded Date Recorded By Document 05/30/17 10:36 MW [id number] 05/30/17 10:43 MW 05/30/17 10:36 Wound Center Nurse 2 [Procedure/Treatment] #10 left medial salgado cluster -Time 10:37 -Correct Patient Yes -Correct Side, Site, Position Yes -Correct Procedure Yes -Procedure Performed No -Post Debridement Size (cm) - Length 0 -Post Debridement Size (cm) - Width 0 -Post Debridement Size (cm) - Depth 0 -Total Square Cm 0 -Wound/Ulcer Outcome Healed- Epithelialized #9 left superior salgado cluster -Time 10:37 -Correct Patient Yes -Correct Side, Site, Position Yes -Correct Procedure Yes -Procedure Performed Yes -Type of Procedure Debridement -Clinical Debridement Subcutaneous -Post Debridement Size (cm) - Length 3.8 -Post Debridement Size (cm) - Width 0.5 -Post Debridement Size (cm) - Depth 0.1 -Total Square Cm 1.90 -Wound/Ulcer Outcome Not Healed -Ulcer Cleansing Rinsed/ Irrigated with Saline -Foul Odor after Cleansing No -Bioengineered Tissue No -Bleeding Controlled with Pressure -Treatment Response Procedure Tolerated Well #7 right inferior salgado -Time 10:37 -Correct Patient Yes -Correct Side, Site, Position Yes -Correct Procedure Yes -Procedure Performed No -Post Debridement Size (cm) - Length 0 -Post Debridement Size (cm) - Width 0 -Post Debridement Size (cm) - Depth 0 -Total Square Cm 0 -Wound/Ulcer Outcome Healed- Epithelialized -Ulcer Cleansing Rinsed/ Irrigated with Saline -Foul Odor after Cleansing No -Bioengineered Tissue No -Bleeding Controlled with NA -Treatment Response Procedure Tolerated Well #6 right medial salgado cluster -Time 10:37 -Correct Patient Yes -Correct Side, Site, Position Yes -Correct Procedure Yes -Procedure Performed Yes -Type of Procedure Debridement -Clinical Debridement Subcutaneous -Post Debridement Size (cm) - Length 0.9 -Post Debridement Size (cm) - Width 0.8 -Post Debridement Size (cm) - Depth 0.1 -Total Square Cm 0.72 -Wound/Ulcer Outcome Not Healed -Ulcer Cleansing Rinsed/ Irrigated with Saline -Foul Odor after Cleansing No -Bioengineered Tissue No -Bleeding Controlled with Pressure -Treatment Response Procedure Tolerated Well #5 right superior salgado cluster -Time 10:38 -Correct Patient Yes -Correct Side, Site, Position Yes -Correct Procedure Yes -Procedure Performed Yes -Type of Procedure Debridement -Clinical Debridement Subcutaneous -Post Debridement Size (cm) - Length 0.2 -Post Debridement Size (cm) - Width 0.3 -Post Debridement Size (cm) - Depth 0.1 -Total Square Cm 0.06 -Wound/Ulcer Outcome Not Healed -Ulcer Cleansing Rinsed/ Irrigated with Saline -Foul Odor after Cleansing No -Bioengineered Tissue No -Bleeding Controlled with Pressure -Treatment Response Procedure Tolerated Well [See Physician Procedure note for Specifics] Pain Scale: 0-10 Numeric [Pain] -Is Patient Pain Free? Yes Musculoskeletal: No Tenderness to Palpation of Joints or Extremities Lymphatic: No Cervical, Supraclavicular, or Inguinal Adenopathy Neurological: Cranial nerves II-XII grossly intact, Neuro grossly intact Psych/Mental Status: Normal Affect, Appropriate, Alert and oriented to time, place, person, mood and affect Debridement Note Post-Debridement Measurements/Treatment WC - Nurse 2 - General Ulcer CM Notes Start: 05/16/17 10:57 Freq: Status: Active Protocol: Activity Type Activity Date Activity User E-Sign Co-Sign Detail Recorded Client Recorded Date Recorded By Document 05/16/17 12:51 MW [id number] 05/16/17 12:54 MW Document 05/30/17 10:36 MW [id number] 05/30/17 10:43 MW 05/16/17 05/30/17 12:51 10:36 Wound Center Nurse 2 #10 left medial salgado cluster -Time 12:51 10:37 -Correct Patient Yes Yes -Correct Side, Site, Position Yes Yes -Correct Procedure Yes Yes -Procedure Performed Yes No -Type of Procedure Debridement -Clinical Debridement Subcutaneous -Post Debridement Size (cm) - Length 0.5 0 -Post Debridement Size (cm) - Width 0.3 0 -Post Debridement Size (cm) - Depth 0.1 0 -Total Square Cm 0.15 0 -Wound/Ulcer Outcome Not Healed Healed- Epithelialized -Ulcer Cleansing Rinsed/ Irrigated with Saline -Foul Odor after Cleansing No -Bioengineered Tissue No -Bleeding Controlled with Pressure -Treatment Response Procedure Tolerated Well #9 left superior salgado cluster -Time 12:52 10:37 -Correct Patient Yes Yes -Correct Side, Site, Position Yes Yes -Correct Procedure Yes Yes -Procedure Performed Yes Yes -Type of Procedure Debridement Debridement -Clinical Debridement Subcutaneous Subcutaneous -Post Debridement Size (cm) - Length 4.2 3.8 -Post Debridement Size (cm) - Width 0.8 0.5 -Post Debridement Size (cm) - Depth 0.2 0.1 -Total Square Cm 3.36 1.90 -Wound/Ulcer Outcome Not Healed Not Healed -Ulcer Cleansing Rinsed/ Rinsed/ Irrigated with Irrigated with Saline Saline -Foul Odor after Cleansing No No -Bioengineered Tissue No No -Bleeding Controlled with Pressure Pressure -Treatment Response Procedure Procedure Tolerated Well Tolerated Well #7 right inferior salgado -Time 12:52 10:37 -Correct Patient Yes Yes -Correct Side, Site, Position Yes Yes -Correct Procedure Yes Yes -Procedure Performed Yes No -Type of Procedure Debridement -Clinical Debridement Subcutaneous -Post Debridement Size (cm) - Length 0.4 0 -Post Debridement Size (cm) - Width 0.3 0 -Post Debridement Size (cm) - Depth 0.1 0 -Total Square Cm 0.12 0 -Wound/Ulcer Outcome Not Healed Healed- Epithelialized -Ulcer Cleansing Rinsed/ Rinsed/ Irrigated with Irrigated with Saline Saline -Foul Odor after Cleansing No No -Bioengineered Tissue No No -Bleeding Controlled with Pressure NA -Treatment Response Procedure Procedure Tolerated Well Tolerated Well #6 right medial salgado cluster -Time 12:52 10:37 -Correct Patient Yes Yes -Correct Side, Site, Position Yes Yes -Correct Procedure Yes Yes -Procedure Performed Yes Yes -Type of Procedure Debridement Debridement -Clinical Debridement Subcutaneous Subcutaneous -Post Debridement Size (cm) - Length 4.0 0.9 -Post Debridement Size (cm) - Width 0.7 0.8 -Post Debridement Size (cm) - Depth 0.2 0.1 -Total Square Cm 2.80 0.72 -Wound/Ulcer Outcome Not Healed Not Healed -Ulcer Cleansing Rinsed/ Rinsed/ Irrigated with Irrigated with Saline Saline -Foul Odor after Cleansing No No -Bioengineered Tissue No No -Bleeding Controlled with Pressure Pressure -Treatment Response Procedure Procedure Tolerated Well Tolerated Well #5 right superior salgado cluster -Time 12:53 10:38 -Correct Patient Yes Yes -Correct Side, Site, Position Yes Yes -Correct Procedure Yes Yes -Procedure Performed Yes Yes -Type of Procedure Debridement Debridement -Clinical Debridement Subcutaneous Subcutaneous -Post Debridement Size (cm) - Length 4.3 0.2 -Post Debridement Size (cm) - Width 0.4 0.3 -Post Debridement Size (cm) - Depth 0.2 0.1 -Total Square Cm 1.72 0.06 -Wound/Ulcer Outcome Not Healed Not Healed -Ulcer Cleansing Rinsed/ Rinsed/ Irrigated with Irrigated with Saline Saline -Foul Odor after Cleansing No No -Bioengineered Tissue No No -Bleeding Controlled with Pressure Pressure -Treatment Response Procedure Procedure Tolerated Well Tolerated Well Pain Scale: 0-10 Numeric Is Patient Pain Free? Yes Yes Wound debrided: Right superior salgado ulcer Type of Debridement: Excisional debridement Anesthesia Used: 5% Lidocaine Gel Depth: Down to and including healthy tissue, in the subcutaneous layer Percentage of wound debrided: 100 Instrument Used: 3mm curette Tissue Removed: Fibrin and some slough Severity: Limited To Skin Breakdown Amount of bleeding with debridement: Mild Bleeding Controlled with: Compression and gauze Patient tolerated procedure well - Additional Wound Wound debrided: Left superior salgado cluster Type of Debridement: Excisional debridement Anesthesia Used: 5% Lidocaine Gel Depth: Down to and including healthy tissue, in the subcutaneous layer Percentage of wound debrided: 100 Instrument Used: 3mm curette Tissue Removed: Slough and fibrin Severity: Limited To Skin Breakdown Amount of bleeding with debridement: Mild Bleeding Controlled with: Pressure Patient tolerated procedure: Patient tolerated procedure well - Additional Wound Wound debrided: Right medial salgado cluster Type of Debridement: Excisional debridement Anesthesia Used: 5% Lidocaine Gel Depth: Down to and including healthy tissue, in the subcutaneous layer Percentage of wound debrided: 100 Instrument Used: 3mm curette Tissue Removed: Fibrin and slough Severity: Limited To Skin Breakdown Amount of bleeding with debridement: Mild Bleeding Controlled with: Compression and gauze Patient tolerated procedure: Patient tolerated procedure well Assessment/Plan Active Problems 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 Bilateral lower leg edema. Diabetes type 2 uncontrolled. 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 Renal insufficiency grade 3. Infected ulcers Plan: Wash legs with Hibiclens and apply Aquacel silver moistened to all wound areas cover with Adaptic wrapped with gauze and Isrrael. Apply a double layer Tubigrip's to bilateral lower legs. finish the antibiotics. Follow-up in 1 week
[2017-06-06 10:14] VITALS: BP 164/73; PULSE 89; RESP 22; TEMP 36.6
--- NOTE | 2017-06-06 10:44 | PCM.WC.PN ---
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 Status: Acute Current Visit: Yes Code(s): I70.239 - Atherosclerosis of [place] arteries of right leg with ulceration of unspecified site; I70.249 - Atherosclerosis of [place] arteries of left leg with ulceration of unspecified site (2) Infected open wound Status: Acute Current Visit: Yes Code(s): T14.8XXA - Other injury of unspecified body region, initial encounter; L08.9 - Local infection of the skin and subcutaneous tissue, unspecified (3) Open wound Status: Acute Current Visit: Yes Code(s): T14.8 - Other injury of unspecified body region (4) Peripheral vascular occlusive disease Status: Acute Current Visit: Yes Code(s): I73.9 - Peripheral vascular disease, unspecified (5) Atherosclerosis of left lower extremity with ulceration Status: Chronic Current Visit: Yes Code(s): I70.249 - Atherosclerosis of [place] arteries of left leg with ulceration of unspecified site (6) Bilateral edema of lower extremity Status: Chronic Current Visit: Yes Code(s): R60.0 - Localized edema (7) Chronic renal insufficiency, stage III (moderate) Status: Chronic Current Visit: Yes Code(s): N18.3 - Chronic kidney disease, stage 3 (moderate) (8) Diabetes mellitus type 2, uncontrolled, with complications Status: Chronic Current Visit: Yes Code(s): E11.8 - Type 2 diabetes mellitus with unspecified complications; E11.65 - Type 2 diabetes mellitus with hyperglycemia (9) Morbid obesity with BMI of 50.0-59.9, adult Status: Chronic Current Visit: Yes Code(s): E66.01 - Morbid (severe) obesity due to excess calories; Z68.43 - Body mass index (BMI) 50-59.9 , adult Type of Wound Date of Service: 06/06/17 Chief Complaint: Bilateral lower leg ulcers infected History of Wound: 61-year-old morbid obese woman with diabetes and has atherosclerosis disease has still not seen Dr. De La Cruz was discharged 2 months ago and due to insurance problems and now has blisters that are open ulcers on bilateral lower legs. Was seen at the [facility] and put on antibiotics but given no dressing changes. Patient was referred then to wound center. Progress of Wound: Bilateral lower leg ulcers are improving the right posterior lower extremity healed. Today the right superior cluster healed. Patient still has a lot of edema in her lower extremities. Positive cultures were obtained from wounds ,patient finished antibiotics and it shows the wounds are healing well. - Physical Exam Vital Signs Temp Pulse Resp BP 97.8 F 89 22 H 164/73 H 06/06/17 10:14 06/06/17 10:14 06/06/17 10:14 06/06/17 10:14 General: Oriented x3, Cooperative, Well developed HEENT: Atraumatic, PERRLA Oral: Moist Mucosa Neck: Supple, No JVD Lungs: Clear to auscultation, Normal air movement Cardiovascular: Regular rate, Regular Rhythm Abdomen: Bowel Sounds Present, Soft, Non Tender, No Hepato-splenomegaly, Obese Extremities: No clubbing, Edema Skin: Ulcer/ Wound - Bilateral lower leg ulcers Wound Measurements and Assessment WC - Nurse 1 - General Ulcer Measurement Start: 05/16/17 10:57 Freq: Status: Active Protocol: Activity Type Activity Date Activity User E-Sign Co-Sign Detail Recorded Client Recorded Date Recorded By Document 06/06/17 10:14 DL [id number] 06/06/17 10:24 DL 06/06/17 10:14 Wound Center Nurse 1 [Ulcer Assessment] #9 left superior salgado cluster -Current Size (cm) - Length 3.8 -Current Size (cm) - Width 0.5 -Current Size (cm) - Depth 0.1 -Total Square Cm 1.90 -Photo Taken No -Exudate Amt Small (1-33%) -Exudate Type Serosanguineous -Wound Margin Distinct, Outline Attached -Granulation Amt Small (1-33%) -Granulation Quality [place] -Necrosis Amt Small (1-33%) -Necrotic Tissue Type Adherent Slough -Structure Exposed N/A -Texture (Iman-wound Skin Appearance) Scarring -Moisture (Iman-wound Skin Appearance No Abnormality ) -Color (Iman-wound Skin Appearance) Hemosiderin Staining Rubor -Tenderness on Palpation (Iman-wound No Skin Appearance) -Ulcer Cleansing Rinsed/ Irrigated with Saline -Foul Odor after Cleansing No -Anesthetic Used 4% Lidocaine Solution #6 right medial salgado cluster -Current Size (cm) - Length 0.9 -Current Size (cm) - Width 0.8 -Current Size (cm) - Depth 0.2 -Total Square Cm 0.72 -Photo Taken No -Exudate Amt Small (1-33%) -Exudate Type Serosanguineous -Wound Margin Distinct, Outline Attached -Granulation Amt None Present (0 %) -Slough/Fibrin Yes -Necrosis Amt Large (67-100%) -Necrotic Tissue Type Adherent Slough -Structure Exposed N/A -Texture (Iman-wound Skin Appearance) Scarring -Moisture (Iman-wound Skin Appearance No Abnormality ) -Color (Iman-wound Skin Appearance) Hemosiderin Staining Rubor -Temperature (Iman-wound Skin No Abnormality Appearance) (Pt Warm) -Tenderness on Palpation (Iman-wound Yes Skin Appearance) -Ulcer Cleansing Wound Cleanser -Foul Odor after Cleansing No -Anesthetic Used 4% Lidocaine Solution #5 right superior salgado cluster -Current Size (cm) - Length 0.1 -Current Size (cm) - Width 0.1 -Current Size (cm) - Depth 0.1 -Total Square Cm 0.01 -Photo Taken No -Exudate Amt None Present (0 %) -Wound Margin Flat & Intact -Granulation Amt None Present (0 %) -Slough/Fibrin Yes -Necrosis Amt Small (1-33%) -Necrotic Tissue Type Adherent Slough -Structure Exposed N/A -Texture (Iman-wound Skin Appearance) Scarring -Moisture (Iman-wound Skin Appearance No Abnormality ) -Color (Iman-wound Skin Appearance) Hemosiderin Staining -Temperature (Iman-wound Skin No Abnormality Appearance) (Pt Warm) -Ulcer Cleansing Rinsed/ Irrigated with Saline -Foul Odor after Cleansing No -Anesthetic Used 4% Lidocaine Solution [Edema Assessment] -Right Calf (cm) 44.2 -Right Ankle (cm) 22.5 -Left Calf (cm) 41.3 -Left Ankle (cm) 22.1 WC - Nurse 2 - General Ulcer CM Notes Start: 05/16/17 10:57 Freq: Status: Active Protocol: Activity Type Activity Date Activity User E-Sign Co-Sign Detail Recorded Client Recorded Date Recorded By Document 06/06/17 10:36 MW [id number] 06/06/17 10:42 MW 06/06/17 10:36 Wound Center Nurse 2 [Procedure/Treatment] #9 left superior salgado cluster -Time 10:37 -Correct Patient Yes -Correct Side, Site, Position Yes -Correct Procedure Yes -Procedure Performed Yes -Type of Procedure Debridement -Clinical Debridement Subcutaneous -Post Debridement Size (cm) - Length 0.8 -Post Debridement Size (cm) - Width 0.4 -Post Debridement Size (cm) - Depth 0.1 -Total Square Cm 0.32 -Wound/Ulcer Outcome Not Healed -Ulcer Cleansing Rinsed/ Irrigated with Saline -Foul Odor after Cleansing No -Bioengineered Tissue No -Bleeding Controlled with Pressure -Treatment Response Procedure Tolerated Well #6 right medial salgado cluster -Time 10:37 -Correct Patient Yes -Correct Side, Site, Position Yes -Correct Procedure Yes -Procedure Performed Yes -Type of Procedure Debridement -Clinical Debridement Subcutaneous -Post Debridement Size (cm) - Length 0.9 -Post Debridement Size (cm) - Width 0.7 -Post Debridement Size (cm) - Depth 0.2 -Total Square Cm 0.63 -Wound/Ulcer Outcome Not Healed -Ulcer Cleansing Rinsed/ Irrigated with Saline -Foul Odor after Cleansing No -Bioengineered Tissue No -Bleeding Controlled with Pressure -Treatment Response Procedure Tolerated Well #5 right superior salgado cluster -Time 10:38 -Correct Patient Yes -Correct Side, Site, Position Yes -Correct Procedure Yes -Procedure Performed Yes -Type of Procedure Debridement -Clinical Debridement Subcutaneous -Post Debridement Size (cm) - Length 0.2 -Post Debridement Size (cm) - Width 0.2 -Post Debridement Size (cm) - Depth 0.1 -Total Square Cm 0.04 -Wound/Ulcer Outcome Not Healed -Ulcer Cleansing Rinsed/ Irrigated with Saline -Foul Odor after Cleansing No -Bioengineered Tissue No -Bleeding Controlled with Pressure -Treatment Response Procedure Tolerated Well [See Physician Procedure note for Specifics] Pain Scale: 0-10 Numeric [Pain] -Is Patient Pain Free? Yes Musculoskeletal: No Tenderness to Palpation of Joints or Extremities Lymphatic: No Cervical, Supraclavicular, or Inguinal Adenopathy Neurological: Cranial nerves II-XII grossly intact, Neuro grossly intact Psych/Mental Status: Normal Affect, Appropriate, Alert and oriented to time, place, person, mood and affect Debridement Note Post-Debridement Measurements/Treatment WC - Nurse 2 - General Ulcer CM Notes Start: 05/16/17 10:57 Freq: Status: Active Protocol: Activity Type Activity Date Activity User E-Sign Co-Sign Detail Recorded Client Recorded Date Recorded By Document 05/16/17 12:51 MW [id number] 05/16/17 12:54 MW Document 05/30/17 10:36 MW [id number] 05/30/17 10:43 MW Document 06/06/17 10:36 MW [id number] 06/06/17 10:42 MW 05/16/17 05/30/17 06/06/17 12:51 10:36 10:36 Wound Center Nurse 2 #10 left medial salgado cluster -Time 12:51 10:37 -Correct Patient Yes Yes -Correct Side, Site, Position Yes Yes -Correct Procedure Yes Yes -Procedure Performed Yes No -Type of Procedure Debridement -Clinical Debridement Subcutaneous -Post Debridement Size (cm) - Length 0.5 0 -Post Debridement Size (cm) - Width 0.3 0 -Post Debridement Size (cm) - Depth 0.1 0 -Total Square Cm 0.15 0 -Wound/Ulcer Outcome Not Healed Healed- Epithelialized -Ulcer Cleansing Rinsed/ Irrigated with Saline -Foul Odor after Cleansing No -Bioengineered Tissue No -Bleeding Controlled with Pressure -Treatment Response Procedure Tolerated Well #9 left superior salgado cluster -Time 12:52 10:37 10:37 -Correct Patient Yes Yes Yes -Correct Side, Site, Position Yes Yes Yes -Correct Procedure Yes Yes Yes -Procedure Performed Yes Yes Yes -Type of Procedure Debridement Debridement Debridement -Clinical Debridement Subcutaneous Subcutaneous Subcutaneous -Post Debridement Size (cm) - Length 4.2 3.8 0.8 -Post Debridement Size (cm) - Width 0.8 0.5 0.4 -Post Debridement Size (cm) - Depth 0.2 0.1 0.1 -Total Square Cm 3.36 1.90 0.32 -Wound/Ulcer Outcome Not Healed Not Healed Not Healed -Ulcer Cleansing Rinsed/ Rinsed/ Rinsed/ Irrigated with Irrigated with Irrigated with Saline Saline Saline -Foul Odor after Cleansing No No No -Bioengineered Tissue No No No -Bleeding Controlled with Pressure Pressure Pressure -Treatment Response Procedure Procedure Procedure Tolerated Well Tolerated Well Tolerated Well #7 right inferior salgado -Time 12:52 10:37 -Correct Patient Yes Yes -Correct Side, Site, Position Yes Yes -Correct Procedure Yes Yes -Procedure Performed Yes No -Type of Procedure Debridement -Clinical Debridement Subcutaneous -Post Debridement Size (cm) - Length 0.4 0 -Post Debridement Size (cm) - Width 0.3 0 -Post Debridement Size (cm) - Depth 0.1 0 -Total Square Cm 0.12 0 -Wound/Ulcer Outcome Not Healed Healed- Epithelialized -Ulcer Cleansing Rinsed/ Rinsed/ Irrigated with Irrigated with Saline Saline -Foul Odor after Cleansing No No -Bioengineered Tissue No No -Bleeding Controlled with Pressure NA -Treatment Response Procedure Procedure Tolerated Well Tolerated Well #6 right medial salgado cluster -Time 12:52 10:37 10:37 -Correct Patient Yes Yes Yes -Correct Side, Site, Position Yes Yes Yes -Correct Procedure Yes Yes Yes -Procedure Performed Yes Yes Yes -Type of Procedure Debridement Debridement Debridement -Clinical Debridement Subcutaneous Subcutaneous Subcutaneous -Post Debridement Size (cm) - Length 4.0 0.9 0.9 -Post Debridement Size (cm) - Width 0.7 0.8 0.7 -Post Debridement Size (cm) - Depth 0.2 0.1 0.2 -Total Square Cm 2.80 0.72 0.63 -Wound/Ulcer Outcome Not Healed Not Healed Not Healed -Ulcer Cleansing Rinsed/ Rinsed/ Rinsed/ Irrigated with Irrigated with Irrigated with Saline Saline Saline -Foul Odor after Cleansing No No No -Bioengineered Tissue No No No -Bleeding Controlled with Pressure Pressure Pressure -Treatment Response Procedure Procedure Procedure Tolerated Well Tolerated Well Tolerated Well #5 right superior salgado cluster -Time 12:53 10:38 10:38 -Correct Patient Yes Yes Yes -Correct Side, Site, Position Yes Yes Yes -Correct Procedure Yes Yes Yes -Procedure Performed Yes Yes Yes -Type of Procedure Debridement Debridement Debridement -Clinical Debridement Subcutaneous Subcutaneous Subcutaneous -Post Debridement Size (cm) - Length 4.3 0.2 0.2 -Post Debridement Size (cm) - Width 0.4 0.3 0.2 -Post Debridement Size (cm) - Depth 0.2 0.1 0.1 -Total Square Cm 1.72 0.06 0.04 -Wound/Ulcer Outcome Not Healed Not Healed Not Healed -Ulcer Cleansing Rinsed/ Rinsed/ Rinsed/ Irrigated with Irrigated with Irrigated with Saline Saline Saline -Foul Odor after Cleansing No No No -Bioengineered Tissue No No No -Bleeding Controlled with Pressure Pressure Pressure -Treatment Response Procedure Procedure Procedure Tolerated Well Tolerated Well Tolerated Well Pain Scale: 0-10 Numeric Is Patient Pain Free? Yes Yes Yes Wound debrided: R medial salgado cluster Type of Debridement: Excisional debridement Anesthesia Used: 5% Lidocaine Gel Depth: Down to and including healthy tissue, in the subcutaneous layer, to muscle Instrument Used: 3mm curette Tissue Removed: slough and fibrin Severity: Limited To Skin Breakdown Amount of bleeding with debridement: Mild Bleeding Controlled with: Pressure Patient tolerated procedure well - Additional Wound Wound debrided: Left superior salgado clusterL superior salgado cluster Type of Debridement: Excisional debridement Anesthesia Used: 5% Lidocaine Gel Depth: Down to and including healthy tissue, in the subcutaneous layer Percentage of wound debrided: 100 Instrument Used: 3mm curette Tissue Removed: fibrin and devitalized tissue Severity: Limited To Skin Breakdown Amount of bleeding with debridement: Mild Bleeding Controlled with: Compression and gauze Patient tolerated procedure: Patient tolerated procedure well Assessment/Plan Active Problems 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 Bilateral lower leg edema. Diabetes type 2 uncontrolled. 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 Renal insufficiency grade 3. Infected ulcers Plan: Wash legs with Hibiclens and apply vinnie to the R leg cluster. and apply promogran to the L leg clusters moistened guaze and tape. Apply a double layer Tubigrip's to bilateral lower legs. Follow-up in 1 week
--- NOTE | 2017-06-06 11:00 | PN.PCM_ITS ---
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 Status: Acute Current Visit: Yes Code(s): I70.239 - Atherosclerosis of hopi arteries of right leg with ulceration of unspecified site; I70.249 - Atherosclerosis of hopi arteries of left leg with ulceration of unspecified site (2) Infected open wound Status: Acute Current Visit: Yes Code(s): T14.8XXA - Other injury of unspecified body region, initial encounter; L08.9 - Local infection of the skin and subcutaneous tissue, unspecified (3) Open wound Status: Acute Current Visit: Yes Code(s): T14.8 - Other injury of unspecified body region (4) Peripheral vascular occlusive disease Status: Acute Current Visit: Yes Code(s): I73.9 - Peripheral vascular disease, unspecified (5) Atherosclerosis of left lower extremity with ulceration Status: Chronic Current Visit: Yes Code(s): I70.249 - Atherosclerosis of hopi arteries of left leg with ulceration of unspecified site (6) Bilateral edema of lower extremity Status: Chronic Current Visit: Yes Code(s): R60.0 - Localized edema (7) Chronic renal insufficiency, stage III (moderate) Status: Chronic Current Visit: Yes Code(s): N18.3 - Chronic kidney disease, stage 3 (moderate) (8) Diabetes mellitus type 2, uncontrolled, with complications Status: Chronic Current Visit: Yes Code(s): E11.8 - Type 2 diabetes mellitus with unspecified complications; E11.65 - Type 2 diabetes mellitus with hyperglycemia (9) Morbid obesity with BMI of 50.0-59.9, adult Status: Chronic Current Visit: Yes Code(s): E66.01 - Morbid (severe) obesity due to excess calories; Z68.43 - Body mass index (BMI) 50-59.9 , adult Type of Wound Date of Service: 06/06/17 Chief Complaint: Bilateral lower leg ulcers infected History of Wound: 61-year-old morbid obese woman with diabetes and has atherosclerosis disease has still not seen Dr. De La Cruz was discharged 2 months ago and due to insurance problems and now has blisters that are open ulcers on bilateral lower legs. Was seen at the [facility] and put on antibiotics but given no dressing changes. Patient was referred then to wound center. Progress of Wound: Bilateral lower leg ulcers are improving the right posterior lower extremity healed. Today the right superior cluster healed. Patient still has a lot of edema in her lower extremities. Positive cultures were obtained from wounds ,patient finished antibiotics and it shows the wounds are healing well. - Physical Exam Vital Signs Temp Pulse Resp BP 97.8 F 89 22 H 164/73 H 06/06/17 10:14 06/06/17 10:14 06/06/17 10:14 06/06/17 10:14 General: Oriented x3, Cooperative, Well developed HEENT: Atraumatic, PERRLA Oral: Moist Mucosa Neck: Supple, No JVD Lungs: Clear to auscultation, Normal air movement Cardiovascular: Regular rate, Regular Rhythm Abdomen: Bowel Sounds Present, Soft, Non Tender, No Hepato-splenomegaly, Obese Extremities: No clubbing, Edema Skin: Ulcer/ Wound - Bilateral lower leg ulcers Wound Measurements and Assessment WC - Nurse 1 - General Ulcer Measurement Start: 05/16/17 10:57 Freq: Status: Active Protocol: Activity Type Activity Date Activity User E-Sign Co-Sign Detail Recorded Client Recorded Date Recorded By Document 06/06/17 10:14 DL [id number] 06/06/17 10:24 DL 06/06/17 10:14 Wound Center Nurse 1 [Ulcer Assessment] #9 left superior salgado cluster -Current Size (cm) - Length 3.8 -Current Size (cm) - Width 0.5 -Current Size (cm) - Depth 0.1 -Total Square Cm 1.90 -Photo Taken No -Exudate Amt Small (1-33%) -Exudate Type Serosanguineous -Wound Margin Distinct, Outline Attached -Granulation Amt Small (1-33%) -Granulation Quality Dequincy -Necrosis Amt Small (1-33%) -Necrotic Tissue Type Adherent Slough -Structure Exposed N/A -Texture (Iman-wound Skin Appearance) Scarring -Moisture (Iman-wound Skin Appearance No Abnormality ) -Color (Iman-wound Skin Appearance) Hemosiderin Staining Rubor -Tenderness on Palpation (Iman-wound No Skin Appearance) -Ulcer Cleansing Rinsed/ Irrigated with Saline -Foul Odor after Cleansing No -Anesthetic Used 4% Lidocaine Solution #6 right medial salgado cluster -Current Size (cm) - Length 0.9 -Current Size (cm) - Width 0.8 -Current Size (cm) - Depth 0.2 -Total Square Cm 0.72 -Photo Taken No -Exudate Amt Small (1-33%) -Exudate Type Serosanguineous -Wound Margin Distinct, Outline Attached -Granulation Amt None Present (0 %) -Slough/Fibrin Yes -Necrosis Amt Large (67-100%) -Necrotic Tissue Type Adherent Slough -Structure Exposed N/A -Texture (Iman-wound Skin Appearance) Scarring -Moisture (Iman-wound Skin Appearance No Abnormality ) -Color (Iman-wound Skin Appearance) Hemosiderin Staining Rubor -Temperature (Iman-wound Skin No Abnormality Appearance) (Pt Warm) -Tenderness on Palpation (Iman-wound Yes Skin Appearance) -Ulcer Cleansing Wound Cleanser -Foul Odor after Cleansing No -Anesthetic Used 4% Lidocaine Solution #5 right superior salgado cluster -Current Size (cm) - Length 0.1 -Current Size (cm) - Width 0.1 -Current Size (cm) - Depth 0.1 -Total Square Cm 0.01 -Photo Taken No -Exudate Amt None Present (0 %) -Wound Margin Flat & Intact -Granulation Amt None Present (0 %) -Slough/Fibrin Yes -Necrosis Amt Small (1-33%) -Necrotic Tissue Type Adherent Slough -Structure Exposed N/A -Texture (Iman-wound Skin Appearance) Scarring -Moisture (Iman-wound Skin Appearance No Abnormality ) -Color (Iman-wound Skin Appearance) Hemosiderin Staining -Temperature (Iman-wound Skin No Abnormality Appearance) (Pt Warm) -Ulcer Cleansing Rinsed/ Irrigated with Saline -Foul Odor after Cleansing No -Anesthetic Used 4% Lidocaine Solution [Edema Assessment] -Right Calf (cm) 44.2 -Right Ankle (cm) 22.5 -Left Calf (cm) 41.3 -Left Ankle (cm) 22.1 WC - Nurse 2 - General Ulcer CM Notes Start: 05/16/17 10:57 Freq: Status: Active Protocol: Activity Type Activity Date Activity User E-Sign Co-Sign Detail Recorded Client Recorded Date Recorded By Document 06/06/17 10:36 MW [id number] 06/06/17 10:42 MW 06/06/17 10:36 Wound Center Nurse 2 [Procedure/Treatment] #9 left superior salgado cluster -Time 10:37 -Correct Patient Yes -Correct Side, Site, Position Yes -Correct Procedure Yes -Procedure Performed Yes -Type of Procedure Debridement -Clinical Debridement Subcutaneous -Post Debridement Size (cm) - Length 0.8 -Post Debridement Size (cm) - Width 0.4 -Post Debridement Size (cm) - Depth 0.1 -Total Square Cm 0.32 -Wound/Ulcer Outcome Not Healed -Ulcer Cleansing Rinsed/ Irrigated with Saline -Foul Odor after Cleansing No -Bioengineered Tissue No -Bleeding Controlled with Pressure -Treatment Response Procedure Tolerated Well #6 right medial salgado cluster -Time 10:37 -Correct Patient Yes -Correct Side, Site, Position Yes -Correct Procedure Yes -Procedure Performed Yes -Type of Procedure Debridement -Clinical Debridement Subcutaneous -Post Debridement Size (cm) - Length 0.9 -Post Debridement Size (cm) - Width 0.7 -Post Debridement Size (cm) - Depth 0.2 -Total Square Cm 0.63 -Wound/Ulcer Outcome Not Healed -Ulcer Cleansing Rinsed/ Irrigated with Saline -Foul Odor after Cleansing No -Bioengineered Tissue No -Bleeding Controlled with Pressure -Treatment Response Procedure Tolerated Well #5 right superior salgado cluster -Time 10:38 -Correct Patient Yes -Correct Side, Site, Position Yes -Correct Procedure Yes -Procedure Performed Yes -Type of Procedure Debridement -Clinical Debridement Subcutaneous -Post Debridement Size (cm) - Length 0.2 -Post Debridement Size (cm) - Width 0.2 -Post Debridement Size (cm) - Depth 0.1 -Total Square Cm 0.04 -Wound/Ulcer Outcome Not Healed -Ulcer Cleansing Rinsed/ Irrigated with Saline -Foul Odor after Cleansing No -Bioengineered Tissue No -Bleeding Controlled with Pressure -Treatment Response Procedure Tolerated Well [See Physician Procedure note for Specifics] Pain Scale: 0-10 Numeric [Pain] -Is Patient Pain Free? Yes Musculoskeletal: No Tenderness to Palpation of Joints or Extremities Lymphatic: No Cervical, Supraclavicular, or Inguinal Adenopathy Neurological: Cranial nerves II-XII grossly intact, Neuro grossly intact Psych/Mental Status: Normal Affect, Appropriate, Alert and oriented to time, place, person, mood and affect Debridement Note Post-Debridement Measurements/Treatment WC - Nurse 2 - General Ulcer CM Notes Start: 05/16/17 10:57 Freq: Status: Active Protocol: Activity Type Activity Date Activity User E-Sign Co-Sign Detail Recorded Client Recorded Date Recorded By Document 05/16/17 12:51 MW [id number] 05/16/17 12:54 MW Document 05/30/17 10:36 MW [id number] 05/30/17 10:43 MW Document 06/06/17 10:36 MW [id number] 06/06/17 10:42 MW 05/16/17 05/30/17 06/06/17 12:51 10:36 10:36 Wound Center Nurse 2 #10 left medial salgado cluster -Time 12:51 10:37 -Correct Patient Yes Yes -Correct Side, Site, Position Yes Yes -Correct Procedure Yes Yes -Procedure Performed Yes No -Type of Procedure Debridement -Clinical Debridement Subcutaneous -Post Debridement Size (cm) - Length 0.5 0 -Post Debridement Size (cm) - Width 0.3 0 -Post Debridement Size (cm) - Depth 0.1 0 -Total Square Cm 0.15 0 -Wound/Ulcer Outcome Not Healed Healed- Epithelialized -Ulcer Cleansing Rinsed/ Irrigated with Saline -Foul Odor after Cleansing No -Bioengineered Tissue No -Bleeding Controlled with Pressure -Treatment Response Procedure Tolerated Well #9 left superior salgado cluster -Time 12:52 10:37 10:37 -Correct Patient Yes Yes Yes -Correct Side, Site, Position Yes Yes Yes -Correct Procedure Yes Yes Yes -Procedure Performed Yes Yes Yes -Type of Procedure Debridement Debridement Debridement -Clinical Debridement Subcutaneous Subcutaneous Subcutaneous -Post Debridement Size (cm) - Length 4.2 3.8 0.8 -Post Debridement Size (cm) - Width 0.8 0.5 0.4 -Post Debridement Size (cm) - Depth 0.2 0.1 0.1 -Total Square Cm 3.36 1.90 0.32 -Wound/Ulcer Outcome Not Healed Not Healed Not Healed -Ulcer Cleansing Rinsed/ Rinsed/ Rinsed/ Irrigated with Irrigated with Irrigated with Saline Saline Saline -Foul Odor after Cleansing No No No -Bioengineered Tissue No No No -Bleeding Controlled with Pressure Pressure Pressure -Treatment Response Procedure Procedure Procedure Tolerated Well Tolerated Well Tolerated Well #7 right inferior salgado -Time 12:52 10:37 -Correct Patient Yes Yes -Correct Side, Site, Position Yes Yes -Correct Procedure Yes Yes -Procedure Performed Yes No -Type of Procedure Debridement -Clinical Debridement Subcutaneous -Post Debridement Size (cm) - Length 0.4 0 -Post Debridement Size (cm) - Width 0.3 0 -Post Debridement Size (cm) - Depth 0.1 0 -Total Square Cm 0.12 0 -Wound/Ulcer Outcome Not Healed Healed- Epithelialized -Ulcer Cleansing Rinsed/ Rinsed/ Irrigated with Irrigated with Saline Saline -Foul Odor after Cleansing No No -Bioengineered Tissue No No -Bleeding Controlled with Pressure NA -Treatment Response Procedure Procedure Tolerated Well Tolerated Well #6 right medial salgado cluster -Time 12:52 10:37 10:37 -Correct Patient Yes Yes Yes -Correct Side, Site, Position Yes Yes Yes -Correct Procedure Yes Yes Yes -Procedure Performed Yes Yes Yes -Type of Procedure Debridement Debridement Debridement -Clinical Debridement Subcutaneous Subcutaneous Subcutaneous -Post Debridement Size (cm) - Length 4.0 0.9 0.9 -Post Debridement Size (cm) - Width 0.7 0.8 0.7 -Post Debridement Size (cm) - Depth 0.2 0.1 0.2 -Total Square Cm 2.80 0.72 0.63 -Wound/Ulcer Outcome Not Healed Not Healed Not Healed -Ulcer Cleansing Rinsed/ Rinsed/ Rinsed/ Irrigated with Irrigated with Irrigated with Saline Saline Saline -Foul Odor after Cleansing No No No -Bioengineered Tissue No No No -Bleeding Controlled with Pressure Pressure Pressure -Treatment Response Procedure Procedure Procedure Tolerated Well Tolerated Well Tolerated Well #5 right superior salgado cluster -Time 12:53 10:38 10:38 -Correct Patient Yes Yes Yes -Correct Side, Site, Position Yes Yes Yes -Correct Procedure Yes Yes Yes -Procedure Performed Yes Yes Yes -Type of Procedure Debridement Debridement Debridement -Clinical Debridement Subcutaneous Subcutaneous Subcutaneous -Post Debridement Size (cm) - Length 4.3 0.2 0.2 -Post Debridement Size (cm) - Width 0.4 0.3 0.2 -Post Debridement Size (cm) - Depth 0.2 0.1 0.1 -Total Square Cm 1.72 0.06 0.04 -Wound/Ulcer Outcome Not Healed Not Healed Not Healed -Ulcer Cleansing Rinsed/ Rinsed/ Rinsed/ Irrigated with Irrigated with Irrigated with Saline Saline Saline -Foul Odor after Cleansing No No No -Bioengineered Tissue No No No -Bleeding Controlled with Pressure Pressure Pressure -Treatment Response Procedure Procedure Procedure Tolerated Well Tolerated Well Tolerated Well Pain Scale: 0-10 Numeric Is Patient Pain Free? Yes Yes Yes Wound debrided: R medial salgado cluster Type of Debridement: Excisional debridement Anesthesia Used: 5% Lidocaine Gel Depth: Down to and including healthy tissue, in the subcutaneous layer, to muscle Instrument Used: 3mm curette Tissue Removed: slough and fibrin Severity: Limited To Skin Breakdown Amount of bleeding with debridement: Mild Bleeding Controlled with: Pressure Patient tolerated procedure well - Additional Wound Wound debrided: Left superior salgado clusterL superior salgado cluster Type of Debridement: Excisional debridement Anesthesia Used: 5% Lidocaine Gel Depth: Down to and including healthy tissue, in the subcutaneous layer Percentage of wound debrided: 100 Instrument Used: 3mm curette Tissue Removed: fibrin and devitalized tissue Severity: Limited To Skin Breakdown Amount of bleeding with debridement: Mild Bleeding Controlled with: Compression and gauze Patient tolerated procedure: Patient tolerated procedure well Assessment/Plan Active Problems 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 Bilateral lower leg edema. Diabetes type 2 uncontrolled. 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 Renal insufficiency grade 3. Infected ulcers Plan: Wash legs with Hibiclens and apply vinnie to the R leg cluster. and apply promogran to the L leg clusters moistened guaze and tape. Apply a double layer Tubigrip's to bilateral lower legs. Follow-up in 1 week
[2017-06-13 10:06] VITALS: BP 143/64; PULSE 92; RESP 18; TEMP 36.3
--- NOTE | 2017-06-13 10:34 | PCM.WC.PN ---
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 Status: Acute Current Visit: Yes Code(s): I70.239 - Atherosclerosis of [place] arteries of right leg with ulceration of unspecified site; I70.249 - Atherosclerosis of [place] arteries of left leg with ulceration of unspecified site (2) Infected open wound Status: Acute Current Visit: Yes Code(s): T14.8XXA - Other injury of unspecified body region, initial encounter; L08.9 - Local infection of the skin and subcutaneous tissue, unspecified (3) Open wound Status: Acute Current Visit: Yes Code(s): T14.8 - Other injury of unspecified body region (4) Peripheral vascular occlusive disease Status: Acute Current Visit: Yes Code(s): I73.9 - Peripheral vascular disease, unspecified (5) Atherosclerosis of left lower extremity with ulceration Status: Chronic Current Visit: Yes Code(s): I70.249 - Atherosclerosis of [place] arteries of left leg with ulceration of unspecified site (6) Bilateral edema of lower extremity Status: Chronic Current Visit: Yes Code(s): R60.0 - Localized edema (7) Chronic renal insufficiency, stage III (moderate) Status: Chronic Current Visit: Yes Code(s): N18.3 - Chronic kidney disease, stage 3 (moderate) (8) Diabetes mellitus type 2, uncontrolled, with complications Status: Chronic Current Visit: Yes Code(s): E11.8 - Type 2 diabetes mellitus with unspecified complications; E11.65 - Type 2 diabetes mellitus with hyperglycemia (9) Morbid obesity with BMI of 50.0-59.9, adult Status: Chronic Current Visit: Yes Code(s): E66.01 - Morbid (severe) obesity due to excess calories; Z68.43 - Body mass index (BMI) 50-59.9 , adult Type of Wound Date of Service: 06/13/17 Chief Complaint: Bilateral lower leg ulcers infected History of Wound: 61-year-old morbid obese woman with diabetes and has atherosclerosis disease has still not seen Dr. De La Cruz was discharged 2 months ago and due to insurance problems and now has blisters that are open ulcers on bilateral lower legs. Was seen at the [facility] and put on antibiotics but given no dressing changes. Patient was referred then to wound center. Progress of Wound: Bilateral lower leg ulcers are improving the right posterior lower extremity healed. The right superior cluster healed. The only open area now is the right medial ulcer. Patient still has a lot of edema in her lower extremities. Positive cultures were obtained from wounds ,patient finished antibiotics and it shows the wounds are healing well. - Physical Exam Vital Signs Temp Pulse Resp BP 97.3 F L 92 18 143/64 H 06/13/17 10:06 06/13/17 10:06 06/13/17 10:06 06/13/17 10:06 General: Oriented x3, Cooperative, Well developed HEENT: Atraumatic, PERRLA Oral: Moist Mucosa Neck: Supple, No JVD Lungs: Clear to auscultation, Normal air movement Cardiovascular: Regular rate, Regular Rhythm Abdomen: Bowel Sounds Present, Soft, Non Tender, No Hepato-splenomegaly Extremities: No clubbing, No edema, - - Lower leg medial ulcer Wound Measurements and Assessment WC - Nurse 1 - General Ulcer Measurement Start: 05/16/17 10:57 Freq: Status: Active Protocol: Activity Type Activity Date Activity User E-Sign Co-Sign Detail Recorded Client Recorded Date Recorded By Document 06/13/17 10:06 [id number] 06/13/17 10:23 06/13/17 10:06 Wound Center Nurse 1 [Ulcer Assessment] #9 left superior salgado cluster -Combined with other wound No -Current Size (cm) - Length 0.4 -Current Size (cm) - Width 1.0 -Current Size (cm) - Depth 0.1 -Total Square Cm 0.40 -Photo Taken No -Epithelialization Medium 34-66% -Tunneling No -Undermining/Tunneling No -Circular Undermining No -Classification - Thickness Full Thickness without Exposed Support Structure -Exudate Amt None Present (0 %) -Wound Margin Distinct, Outline Attached -Granulation Amt None Present (0 %) -Slough/Fibrin Yes -Necrosis Amt Large (67-100%) -Necrotic Tissue Type Adherent Slough -Structure Exposed None/Limited to Skin Breakdown -Texture (Iman-wound Skin Appearance) Friable Localized Edema Scarring -Color (Iman-wound Skin Appearance) Erythema Hemosiderin Staining -Temperature (Iman-wound Skin No Abnormality Appearance) (Pt Warm) -Tenderness on Palpation (Iman-wound No Skin Appearance) -Ulcer Cleansing Rinsed/ Irrigated with Saline -Foul Odor after Cleansing No -Anesthetic Used 5% Lidocaine Gel #6 right medial salgado cluster -Combined with other wound No -Current Size (cm) - Length 1.0 -Current Size (cm) - Width 1.0 -Current Size (cm) - Depth 0.1 -Total Square Cm 1.00 -Photo Taken No -Epithelialization Small 1-33% -Tunneling No -Undermining/Tunneling No -Circular Undermining No -Classification - Thickness Full Thickness without Exposed Support Structure -Exudate Amt Small (1-33%) -Exudate Type Serous -Wound Margin Distinct, Outline Attached -Granulation Amt Large (67-100%) -Slough/Fibrin Yes -Necrosis Amt Large (67-100%) -Necrotic Tissue Type Adherent Slough -Structure Exposed Fascia Fat Layer Exposed -Texture (Iman-wound Skin Appearance) Localized Edema Scarring -Moisture (Iman-wound Skin Appearance No Abnormality ) -Color (Iman-wound Skin Appearance) Erythema Hemosiderin Staining -Temperature (Iman-wound Skin No Abnormality Appearance) (Pt Warm) -Tenderness on Palpation (Iman-wound No Skin Appearance) -Ulcer Cleansing Rinsed/ Irrigated with Saline -Foul Odor after Cleansing No -Anesthetic Used 5% Lidocaine Gel #5 right superior salgado cluster -Combined with other wound No -Current Size (cm) - Length 0.2 -Current Size (cm) - Width 0.9 -Current Size (cm) - Depth 0.1 -Total Square Cm 0.18 -Photo Taken No -Epithelialization Small 1-33% -Tunneling No -Undermining/Tunneling No -Circular Undermining No -Classification - Thickness Full Thickness without Exposed Support Structure -Exudate Amt Small (1-33%) -Exudate Type Serous -Wound Margin Distinct, Outline Attached -Granulation Amt Medium (34-66%) -Granulation Quality [place] -Slough/Fibrin Yes -Necrosis Amt Medium (34-66%) -Necrotic Tissue Type Adherent Slough -Structure Exposed Fascia Fat Layer Exposed -Texture (Iman-wound Skin Appearance) Localized Edema Scarring -Moisture (Iman-wound Skin Appearance No Abnormality ) -Color (Iman-wound Skin Appearance) Erythema Hemosiderin Staining -Temperature (Iman-wound Skin No Abnormality Appearance) (Pt Warm) -Tenderness on Palpation (Iman-wound No Skin Appearance) -Ulcer Cleansing Rinsed/ Irrigated with Saline -Foul Odor after Cleansing No -Anesthetic Used 5% Lidocaine Gel [Edema Assessment] -Lower Limb Edema Present Yes -Right Calf (cm) 45.0 -Right Ankle (cm) 24.0 -Left Calf (cm) 44.0 -Left Ankle (cm) 23.0 Musculoskeletal: No Tenderness to Palpation of Joints or Extremities Lymphatic: No Cervical, Supraclavicular, or Inguinal Adenopathy Neurological: Cranial nerves II-XII grossly intact, Neuro grossly intact Psych/Mental Status: Normal Affect, Appropriate Debridement Note Post-Debridement Measurements/Treatment WC - Nurse 2 - General Ulcer CM Notes Start: 05/16/17 10:57 Freq: Status: Active Protocol: Activity Type Activity Date Activity User E-Sign Co-Sign Detail Recorded Client Recorded Date Recorded By Document 05/16/17 12:51 MW [id number] 05/16/17 12:54 MW Document 05/30/17 10:36 MW [id number] 05/30/17 10:43 MW Document 06/06/17 10:36 MW [id number] 06/06/17 10:42 MW 05/16/17 05/30/17 06/06/17 12:51 10:36 10:36 Wound Center Nurse 2 #10 left medial salgado cluster -Time 12:51 10:37 -Correct Patient Yes Yes -Correct Side, Site, Position Yes Yes -Correct Procedure Yes Yes -Procedure Performed Yes No -Type of Procedure Debridement -Clinical Debridement Subcutaneous -Post Debridement Size (cm) - Length 0.5 0 -Post Debridement Size (cm) - Width 0.3 0 -Post Debridement Size (cm) - Depth 0.1 0 -Total Square Cm 0.15 0 -Wound/Ulcer Outcome Not Healed Healed- Epithelialized -Ulcer Cleansing Rinsed/ Irrigated with Saline -Foul Odor after Cleansing No -Bioengineered Tissue No -Bleeding Controlled with Pressure -Treatment Response Procedure Tolerated Well #9 left superior salgado cluster -Time 12:52 10:37 10:37 -Correct Patient Yes Yes Yes -Correct Side, Site, Position Yes Yes Yes -Correct Procedure Yes Yes Yes -Procedure Performed Yes Yes Yes -Type of Procedure Debridement Debridement Debridement -Clinical Debridement Subcutaneous Subcutaneous Subcutaneous -Post Debridement Size (cm) - Length 4.2 3.8 0.8 -Post Debridement Size (cm) - Width 0.8 0.5 0.4 -Post Debridement Size (cm) - Depth 0.2 0.1 0.1 -Total Square Cm 3.36 1.90 0.32 -Wound/Ulcer Outcome Not Healed Not Healed Not Healed -Ulcer Cleansing Rinsed/ Rinsed/ Rinsed/ Irrigated with Irrigated with Irrigated with Saline Saline Saline -Foul Odor after Cleansing No No No -Bioengineered Tissue No No No -Bleeding Controlled with Pressure Pressure Pressure -Treatment Response Procedure Procedure Procedure Tolerated Well Tolerated Well Tolerated Well #7 right inferior salgado -Time 12:52 10:37 -Correct Patient Yes Yes -Correct Side, Site, Position Yes Yes -Correct Procedure Yes Yes -Procedure Performed Yes No -Type of Procedure Debridement -Clinical Debridement Subcutaneous -Post Debridement Size (cm) - Length 0.4 0 -Post Debridement Size (cm) - Width 0.3 0 -Post Debridement Size (cm) - Depth 0.1 0 -Total Square Cm 0.12 0 -Wound/Ulcer Outcome Not Healed Healed- Epithelialized -Ulcer Cleansing Rinsed/ Rinsed/ Irrigated with Irrigated with Saline Saline -Foul Odor after Cleansing No No -Bioengineered Tissue No No -Bleeding Controlled with Pressure NA -Treatment Response Procedure Procedure Tolerated Well Tolerated Well #6 right medial salgado cluster -Time 12:52 10:37 10:37 -Correct Patient Yes Yes Yes -Correct Side, Site, Position Yes Yes Yes -Correct Procedure Yes Yes Yes -Procedure Performed Yes Yes Yes -Type of Procedure Debridement Debridement Debridement -Clinical Debridement Subcutaneous Subcutaneous Subcutaneous -Post Debridement Size (cm) - Length 4.0 0.9 0.9 -Post Debridement Size (cm) - Width 0.7 0.8 0.7 -Post Debridement Size (cm) - Depth 0.2 0.1 0.2 -Total Square Cm 2.80 0.72 0.63 -Wound/Ulcer Outcome Not Healed Not Healed Not Healed -Ulcer Cleansing Rinsed/ Rinsed/ Rinsed/ Irrigated with Irrigated with Irrigated with Saline Saline Saline -Foul Odor after Cleansing No No No -Bioengineered Tissue No No No -Bleeding Controlled with Pressure Pressure Pressure -Treatment Response Procedure Procedure Procedure Tolerated Well Tolerated Well Tolerated Well #5 right superior salgado cluster -Time 12:53 10:38 10:38 -Correct Patient Yes Yes Yes -Correct Side, Site, Position Yes Yes Yes -Correct Procedure Yes Yes Yes -Procedure Performed Yes Yes Yes -Type of Procedure Debridement Debridement Debridement -Clinical Debridement Subcutaneous Subcutaneous Subcutaneous -Post Debridement Size (cm) - Length 4.3 0.2 0.2 -Post Debridement Size (cm) - Width 0.4 0.3 0.2 -Post Debridement Size (cm) - Depth 0.2 0.1 0.1 -Total Square Cm 1.72 0.06 0.04 -Wound/Ulcer Outcome Not Healed Not Healed Not Healed -Ulcer Cleansing Rinsed/ Rinsed/ Rinsed/ Irrigated with Irrigated with Irrigated with Saline Saline Saline -Foul Odor after Cleansing No No No -Bioengineered Tissue No No No -Bleeding Controlled with Pressure Pressure Pressure -Treatment Response Procedure Procedure Procedure Tolerated Well Tolerated Well Tolerated Well Pain Scale: 0-10 Numeric Is Patient Pain Free? 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 Bilateral lower leg edema. Diabetes type 2 uncontrolled. 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 Renal insufficiency grade 3. Infected ulcers Plan: Wash legs with Hibiclens and apply vinnie to the R lower leg medial ulcer. Apply a double layer Tubigrip's to bilateral lower legs. Follow-up in 1 week
--- NOTE | 2017-06-13 10:38 | PN.PCM_ITS ---
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 Status: Acute Current Visit: Yes Code(s): I70.239 - Atherosclerosis of [place] arteries of right leg with ulceration of unspecified site; I70.249 - Atherosclerosis of [place] arteries of left leg with ulceration of unspecified site (2) Infected open wound Status: Acute Current Visit: Yes Code(s): T14.8XXA - Other injury of unspecified body region, initial encounter; L08.9 - Local infection of the skin and subcutaneous tissue, unspecified (3) Open wound Status: Acute Current Visit: Yes Code(s): T14.8 - Other injury of unspecified body region (4) Peripheral vascular occlusive disease Status: Acute Current Visit: Yes Code(s): I73.9 - Peripheral vascular disease, unspecified (5) Atherosclerosis of left lower extremity with ulceration Status: Chronic Current Visit: Yes Code(s): I70.249 - Atherosclerosis of [place] arteries of left leg with ulceration of unspecified site (6) Bilateral edema of lower extremity Status: Chronic Current Visit: Yes Code(s): R60.0 - Localized edema (7) Chronic renal insufficiency, stage III (moderate) Status: Chronic Current Visit: Yes Code(s): N18.3 - Chronic kidney disease, stage 3 (moderate) (8) Diabetes mellitus type 2, uncontrolled, with complications Status: Chronic Current Visit: Yes Code(s): E11.8 - Type 2 diabetes mellitus with unspecified complications; E11.65 - Type 2 diabetes mellitus with hyperglycemia (9) Morbid obesity with BMI of 50.0-59.9, adult Status: Chronic Current Visit: Yes Code(s): E66.01 - Morbid (severe) obesity due to excess calories; Z68.43 - Body mass index (BMI) 50-59.9 , adult Type of Wound Date of Service: 06/13/17 Chief Complaint: Bilateral lower leg ulcers infected History of Wound: 61-year-old morbid obese woman with diabetes and has atherosclerosis disease has still not seen Dr. De La Cruz was discharged 2 months ago and due to insurance problems and now has blisters that are open ulcers on bilateral lower legs. Was seen at the [facility] and put on antibiotics but given no dressing changes. Patient was referred then to wound center. Progress of Wound: Bilateral lower leg ulcers are improving the right posterior lower extremity healed. The right superior cluster healed. The only open area now is the right medial ulcer. Patient still has a lot of edema in her lower extremities. Positive cultures were obtained from wounds ,patient finished antibiotics and it shows the wounds are healing well. - Physical Exam Vital Signs Temp Pulse Resp BP 97.3 F L 92 18 143/64 H 06/13/17 10:06 06/13/17 10:06 06/13/17 10:06 06/13/17 10:06 General: Oriented x3, Cooperative, Well developed HEENT: Atraumatic, PERRLA Oral: Moist Mucosa Neck: Supple, No JVD Lungs: Clear to auscultation, Normal air movement Cardiovascular: Regular rate, Regular Rhythm Abdomen: Bowel Sounds Present, Soft, Non Tender, No Hepato-splenomegaly Extremities: No clubbing, No edema, - - Lower leg medial ulcer Wound Measurements and Assessment WC - Nurse 1 - General Ulcer Measurement Start: 05/16/17 10:57 Freq: Status: Active Protocol: Activity Type Activity Date Activity User E-Sign Co-Sign Detail Recorded Client Recorded Date Recorded By Document 06/13/17 10:06 [id number] 06/13/17 10:23 06/13/17 10:06 Wound Center Nurse 1 [Ulcer Assessment] #9 left superior salgado cluster -Combined with other wound No -Current Size (cm) - Length 0.4 -Current Size (cm) - Width 1.0 -Current Size (cm) - Depth 0.1 -Total Square Cm 0.40 -Photo Taken No -Epithelialization Medium 34-66% -Tunneling No -Undermining/Tunneling No -Circular Undermining No -Classification - Thickness Full Thickness without Exposed Support Structure -Exudate Amt None Present (0 %) -Wound Margin Distinct, Outline Attached -Granulation Amt None Present (0 %) -Slough/Fibrin Yes -Necrosis Amt Large (67-100%) -Necrotic Tissue Type Adherent Slough -Structure Exposed None/Limited to Skin Breakdown -Texture (Iman-wound Skin Appearance) Friable Localized Edema Scarring -Color (Iman-wound Skin Appearance) Erythema Hemosiderin Staining -Temperature (Iman-wound Skin No Abnormality Appearance) (Pt Warm) -Tenderness on Palpation (Iman-wound No Skin Appearance) -Ulcer Cleansing Rinsed/ Irrigated with Saline -Foul Odor after Cleansing No -Anesthetic Used 5% Lidocaine Gel #6 right medial salgado cluster -Combined with other wound No -Current Size (cm) - Length 1.0 -Current Size (cm) - Width 1.0 -Current Size (cm) - Depth 0.1 -Total Square Cm 1.00 -Photo Taken No -Epithelialization Small 1-33% -Tunneling No -Undermining/Tunneling No -Circular Undermining No -Classification - Thickness Full Thickness without Exposed Support Structure -Exudate Amt Small (1-33%) -Exudate Type Serous -Wound Margin Distinct, Outline Attached -Granulation Amt Large (67-100%) -Slough/Fibrin Yes -Necrosis Amt Large (67-100%) -Necrotic Tissue Type Adherent Slough -Structure Exposed Fascia Fat Layer Exposed -Texture (Iman-wound Skin Appearance) Localized Edema Scarring -Moisture (Iman-wound Skin Appearance No Abnormality ) -Color (Iman-wound Skin Appearance) Erythema Hemosiderin Staining -Temperature (Iman-wound Skin No Abnormality Appearance) (Pt Warm) -Tenderness on Palpation (Iman-wound No Skin Appearance) -Ulcer Cleansing Rinsed/ Irrigated with Saline -Foul Odor after Cleansing No -Anesthetic Used 5% Lidocaine Gel #5 right superior salgado cluster -Combined with other wound No -Current Size (cm) - Length 0.2 -Current Size (cm) - Width 0.9 -Current Size (cm) - Depth 0.1 -Total Square Cm 0.18 -Photo Taken No -Epithelialization Small 1-33% -Tunneling No -Undermining/Tunneling No -Circular Undermining No -Classification - Thickness Full Thickness without Exposed Support Structure -Exudate Amt Small (1-33%) -Exudate Type Serous -Wound Margin Distinct, Outline Attached -Granulation Amt Medium (34-66%) -Granulation Quality [place] -Slough/Fibrin Yes -Necrosis Amt Medium (34-66%) -Necrotic Tissue Type Adherent Slough -Structure Exposed Fascia Fat Layer Exposed -Texture (Iman-wound Skin Appearance) Localized Edema Scarring -Moisture (Iman-wound Skin Appearance No Abnormality ) -Color (Iman-wound Skin Appearance) Erythema Hemosiderin Staining -Temperature (Iman-wound Skin No Abnormality Appearance) (Pt Warm) -Tenderness on Palpation (Imna-wound No Skin Appearance) -Ulcer Cleansing Rinsed/ Irrigated with Saline -Foul Odor after Cleansing No -Anesthetic Used 5% Lidocaine Gel [Edema Assessment] -Lower Limb Edema Present Yes -Right Calf (cm) 45.0 -Right Ankle (cm) 24.0 -Left Calf (cm) 44.0 -Left Ankle (cm) 23.0 Musculoskeletal: No Tenderness to Palpation of Joints or Extremities Lymphatic: No Cervical, Supraclavicular, or Inguinal Adenopathy Neurological: Cranial nerves II-XII grossly intact, Neuro grossly intact Psych/Mental Status: Normal Affect, Appropriate Debridement Note Post-Debridement Measurements/Treatment WC - Nurse 2 - General Ulcer CM Notes Start: 05/16/17 10:57 Freq: Status: Active Protocol: Activity Type Activity Date Activity User E-Sign Co-Sign Detail Recorded Client Recorded Date Recorded By Document 05/16/17 12:51 MW [id number] 05/16/17 12:54 MW Document 05/30/17 10:36 MW [id number] 05/30/17 10:43 MW Document 06/06/17 10:36 MW [id number] 06/06/17 10:42 MW 05/16/17 05/30/17 06/06/17 12:51 10:36 10:36 Wound Center Nurse 2 #10 left medial salgado cluster -Time 12:51 10:37 -Correct Patient Yes Yes -Correct Side, Site, Position Yes Yes -Correct Procedure Yes Yes -Procedure Performed Yes No -Type of Procedure Debridement -Clinical Debridement Subcutaneous -Post Debridement Size (cm) - Length 0.5 0 -Post Debridement Size (cm) - Width 0.3 0 -Post Debridement Size (cm) - Depth 0.1 0 -Total Square Cm 0.15 0 -Wound/Ulcer Outcome Not Healed Healed- Epithelialized -Ulcer Cleansing Rinsed/ Irrigated with Saline -Foul Odor after Cleansing No -Bioengineered Tissue No -Bleeding Controlled with Pressure -Treatment Response Procedure Tolerated Well #9 left superior salgado cluster -Time 12:52 10:37 10:37 -Correct Patient Yes Yes Yes -Correct Side, Site, Position Yes Yes Yes -Correct Procedure Yes Yes Yes -Procedure Performed Yes Yes Yes -Type of Procedure Debridement Debridement Debridement -Clinical Debridement Subcutaneous Subcutaneous Subcutaneous -Post Debridement Size (cm) - Length 4.2 3.8 0.8 -Post Debridement Size (cm) - Width 0.8 0.5 0.4 -Post Debridement Size (cm) - Depth 0.2 0.1 0.1 -Total Square Cm 3.36 1.90 0.32 -Wound/Ulcer Outcome Not Healed Not Healed Not Healed -Ulcer Cleansing Rinsed/ Rinsed/ Rinsed/ Irrigated with Irrigated with Irrigated with Saline Saline Saline -Foul Odor after Cleansing No No No -Bioengineered Tissue No No No -Bleeding Controlled with Pressure Pressure Pressure -Treatment Response Procedure Procedure Procedure Tolerated Well Tolerated Well Tolerated Well #7 right inferior salgado -Time 12:52 10:37 -Correct Patient Yes Yes -Correct Side, Site, Position Yes Yes -Correct Procedure Yes Yes -Procedure Performed Yes No -Type of Procedure Debridement -Clinical Debridement Subcutaneous -Post Debridement Size (cm) - Length 0.4 0 -Post Debridement Size (cm) - Width 0.3 0 -Post Debridement Size (cm) - Depth 0.1 0 -Total Square Cm 0.12 0 -Wound/Ulcer Outcome Not Healed Healed- Epithelialized -Ulcer Cleansing Rinsed/ Rinsed/ Irrigated with Irrigated with Saline Saline -Foul Odor after Cleansing No No -Bioengineered Tissue No No -Bleeding Controlled with Pressure NA -Treatment Response Procedure Procedure Tolerated Well Tolerated Well #6 right medial salgado cluster -Time 12:52 10:37 10:37 -Correct Patient Yes Yes Yes -Correct Side, Site, Position Yes Yes Yes -Correct Procedure Yes Yes Yes -Procedure Performed Yes Yes Yes -Type of Procedure Debridement Debridement Debridement -Clinical Debridement Subcutaneous Subcutaneous Subcutaneous -Post Debridement Size (cm) - Length 4.0 0.9 0.9 -Post Debridement Size (cm) - Width 0.7 0.8 0.7 -Post Debridement Size (cm) - Depth 0.2 0.1 0.2 -Total Square Cm 2.80 0.72 0.63 -Wound/Ulcer Outcome Not Healed Not Healed Not Healed -Ulcer Cleansing Rinsed/ Rinsed/ Rinsed/ Irrigated with Irrigated with Irrigated with Saline Saline Saline -Foul Odor after Cleansing No No No -Bioengineered Tissue No No No -Bleeding Controlled with Pressure Pressure Pressure -Treatment Response Procedure Procedure Procedure Tolerated Well Tolerated Well Tolerated Well #5 right superior salgado cluster -Time 12:53 10:38 10:38 -Correct Patient Yes Yes Yes -Correct Side, Site, Position Yes Yes Yes -Correct Procedure Yes Yes Yes -Procedure Performed Yes Yes Yes -Type of Procedure Debridement Debridement Debridement -Clinical Debridement Subcutaneous Subcutaneous Subcutaneous -Post Debridement Size (cm) - Length 4.3 0.2 0.2 -Post Debridement Size (cm) - Width 0.4 0.3 0.2 -Post Debridement Size (cm) - Depth 0.2 0.1 0.1 -Total Square Cm 1.72 0.06 0.04 -Wound/Ulcer Outcome Not Healed Not Healed Not Healed -Ulcer Cleansing Rinsed/ Rinsed/ Rinsed/ Irrigated with Irrigated with Irrigated with Saline Saline Saline -Foul Odor after Cleansing No No No -Bioengineered Tissue No No No -Bleeding Controlled with Pressure Pressure Pressure -Treatment Response Procedure Procedure Procedure Tolerated Well Tolerated Well Tolerated Well Pain Scale: 0-10 Numeric Is Patient Pain Free? 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 Bilateral lower leg edema. Diabetes type 2 uncontrolled. 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 Renal insufficiency grade 3. Infected ulcers Plan: Wash legs with Hibiclens and apply vinnie to the R lower leg medial ulcer. Apply a double layer Tubigrip's to bilateral lower legs. Follow-up in 1 week
== END 2017-06-14 23:59 ==
LOC: WC 10:15
PROVIDERS: Family Provider Family Medicine; PCP Family Medicine; Visit Provider Nurse Practitioner
DX: E11.622 Type 2 diabetes mellitus with other skin ulcer (principal); E66.01 Morbid (severe) obesity due to excess calories; Z68.43 Body mass index [BMI] 50.0-59.9, adult; Z71.3 Dietary counseling and surveillance; E11.65 Type 2 diabetes mellitus with hyperglycemia; I70.248 Atherosclerosis of native arteries of left leg with ulceration of other part of lower leg; L97.821 Non-pressure chronic ulcer of other part of left lower leg limited to breakdown of skin; I70.233 Atherosclerosis of native arteries of right leg with ulceration of ankle; L97.311 Non-pressure chronic ulcer of right ankle limited to breakdown of skin; I70.238 Atherosclerosis of native arteries of right leg with ulceration of other part of lower leg; L97.811 Non-pressure chronic ulcer of other part of right lower leg limited to breakdown of skin; E11.22 Type 2 diabetes mellitus with diabetic chronic kidney disease; N18.3 Chronic kidney disease, stage 3 (moderate); R60.0 Localized edema; L08.9 Local infection of the skin and subcutaneous tissue, unspecified; E11.51 Type 2 diabetes mellitus with diabetic peripheral angiopathy without gangrene; E11.40 Type 2 diabetes mellitus with diabetic neuropathy, unspecified
CPT/HCPCS: 11042

== ENCOUNTER 2017-07-04 10:00 | Outpatient (RCR) | payer MEDICARE, MEDICAID, SELFPAY ==
[2017-06-15 01:03] VITALS: PULSE 92; RESP 18; TEMP 36.3
[2017-06-20 09:49] VITALS: BP 166/82; PULSE 86; RESP 18; TEMP 36.3
--- NOTE | 2017-06-20 11:35 | PN.PCM_ITS ---
(1) Infected open wound Status: Acute Current Visit: Yes Code(s): T14.8XXA - Other injury of unspecified body region, initial encounter; L08.9 - Local infection of the skin and subcutaneous tissue, unspecified (2) Open wound Status: Acute Current Visit: Yes Code(s): T14.8 - Other injury of unspecified body region (3) Bilateral edema of lower extremity Status: Chronic Current Visit: Yes Code(s): R60.0 - Localized edema (4) Diabetes mellitus type 2, uncontrolled, with complications Status: Chronic Current Visit: Yes Code(s): E11.8 - Type 2 diabetes mellitus with unspecified complications; E11.65 - Type 2 diabetes mellitus with hyperglycemia (5) Diabetic neuropathy associated with diabetes mellitus due to underlying condition Status: Chronic Current Visit: Yes Code(s): E08.40 - Diabetes mellitus due to underlying condition with diabetic neuropathy, unspecified (6) Morbid obesity with BMI of 50.0-59.9, adult Status: Chronic Current Visit: Yes Code(s): E66.01 - Morbid (severe) obesity due to excess calories; Z68.43 - Body mass index (BMI) 50-59.9 , adult Type of Wound Date of Service: 06/20/17 Chief Complaint: Bilateral lower leg ulcers infected History of Wound: 61-year-old morbid obese woman with diabetes and has atherosclerosis disease has still not seen Dr. De La Cruz was discharged 2 months ago and due to insurance problems and now has blisters that are open ulcers on bilateral lower legs. Was seen at the [facility] and put on antibiotics but given no dressing changes. Patient was referred then to wound center. Progress of Wound: Bilateral lower leg ulcers are improving the right posterior lower extremity healed. The right superior cluster healed. The only open area now is the right medial ulcer. Upping a lot of slough in this 1 area we will reculture to make sure that she is not infected again. We are continuing with then Macie - Physical Exam Vital Signs Temp Pulse Resp BP 97.3 F L 86 18 166/82 H 06/20/17 09:49 06/20/17 09:49 06/20/17 09:49 06/20/17 09:49 General: Oriented x3, Cooperative, Well developed HEENT: Atraumatic, PERRLA Oral: Moist Mucosa Neck: Supple, No JVD Lungs: Clear to auscultation, Normal air movement Cardiovascular: Regular rate, Regular Rhythm Abdomen: Bowel Sounds Present, Soft, Non Tender, No Hepato-splenomegaly Extremities: No clubbing, Edema, - - Right lower leg medial ulcer Wound Measurements and Assessment WC - Nurse 1 - General Ulcer Measurement Start: 06/20/17 09:49 Freq: Status: Active Protocol: Activity Type Activity Date Activity User E-Sign Co-Sign Detail Recorded Client Recorded Date Recorded By Document 06/20/17 09:49 [id number] 06/20/17 09:54 06/20/17 09:49 Wound Center Nurse 1 [Ulcer Assessment] #6 right medial salgado cluster -Combined with other wound No -Current Size (cm) - Length 1.0 -Current Size (cm) - Width 0.9 -Current Size (cm) - Depth 0.2 -Total Square Cm 0.90 -Photo Taken No -Epithelialization None Present -Tunneling No -Undermining/Tunneling No -Circular Undermining No -Classification - Thickness Full Thickness without Exposed Support Structure -Exudate Amt Small (1-33%) -Exudate Type Serosanguineous -Wound Margin Distinct, Outline Attached -Granulation Amt None Present (0 %) -Granulation Quality N/A -Slough/Fibrin Yes -Necrosis Amt Large (67-100%) -Necrotic Tissue Type Adherent Slough -Structure Exposed Fascia Fat Layer Exposed -Texture (Iman-wound Skin Appearance) Localized Edema Scarring -Moisture (Iman-wound Skin Appearance No Abnormality ) -Color (Iman-wound Skin Appearance) Erythema -Temperature (Iman-wound Skin No Abnormality Appearance) (Pt Warm) -Tenderness on Palpation (Iman-wound Yes Skin Appearance) -Ulcer Cleansing Rinsed/ Irrigated with Saline -Foul Odor after Cleansing No -Anesthetic Used 5% Lidocaine Gel #5 right superior salgado cluster -Current Size (cm) - Length 0.1 -Current Size (cm) - Width 0.1 -Current Size (cm) - Depth 0.1 -Total Square Cm 0.01 -Photo Taken No -Epithelialization Large 67-100% -Tunneling No -Undermining/Tunneling No -Circular Undermining No -Classification - Thickness Full Thickness without Exposed Support Structure -Exudate Amt None Present (0 %) -Wound Margin Distinct, Outline Attached -Granulation Amt Large (67-100%) -Granulation Quality [place] -Slough/Fibrin No -Necrosis Amt None Present (0 %) -Texture (Iman-wound Skin Appearance) Localized Edema Scarring -Moisture (Iman-wound Skin Appearance Dry/Scaly ) -Color (Iman-wound Skin Appearance) Erythema Hemosiderin Staining -Temperature (Iman-wound Skin No Abnormality Appearance) (Pt Warm) -Tenderness on Palpation (Iman-wound No Skin Appearance) -Ulcer Cleansing Rinsed/ Irrigated with Saline -Foul Odor after Cleansing No [Edema Assessment] -Lower Limb Edema Present Yes -Right Calf (cm) 44.0 -Right Ankle (cm) 24.0 -Left Calf (cm) 44.5 -Left Ankle (cm) 23.0 WC - Nurse 2 - General Ulcer CM Notes Start: 06/20/17 09:49 Freq: Status: Active Protocol: Activity Type Activity Date Activity User E-Sign Co-Sign Detail Recorded Client Recorded Date Recorded By Document 06/20/17 10:22 MW [id number] 06/20/17 10:24 MW 06/20/17 10:22 Wound Center Nurse 2 [Procedure/Treatment] #6 right medial salgado cluster -Time 10:23 -Correct Patient Yes -Correct Side, Site, Position Yes -Correct Procedure Yes -Procedure Performed Yes -Type of Procedure Debridement -Clinical Debridement Subcutaneous -Post Debridement Size (cm) - Length 0.9 -Post Debridement Size (cm) - Width 0.6 -Post Debridement Size (cm) - Depth 0.1 -Total Square Cm 0.54 -Wound/Ulcer Outcome Not Healed -Ulcer Cleansing Rinsed/ Irrigated with Saline -Foul Odor after Cleansing No -Bioengineered Tissue No -Bleeding Controlled with Pressure -Treatment Response Procedure Tolerated Well #5 right superior salgado cluster -Time 10:23 -Correct Patient Yes -Correct Side, Site, Position Yes -Correct Procedure Yes -Procedure Performed No -Post Debridement Size (cm) - Length 0 -Post Debridement Size (cm) - Width 0 -Post Debridement Size (cm) - Depth 0 -Total Square Cm 0 -Wound/Ulcer Outcome Healed- Epithelialized -Ulcer Cleansing Not Cleansed -Foul Odor after Cleansing No -Bioengineered Tissue No -Bleeding Controlled with NA -Treatment Response Procedure Tolerated Well [See Physician Procedure note for Specifics] Musculoskeletal: No Tenderness to Palpation of Joints or Extremities Lymphatic: No Cervical, Supraclavicular, or Inguinal Adenopathy Neurological: Cranial nerves II-XII grossly intact, Neuro grossly intact Psych/Mental Status: Normal Affect, Appropriate, Alert and oriented to time, place, person, mood and affect Debridement Note Post-Debridement Measurements/Treatment WC - Nurse 2 - General Ulcer CM Notes Start: 06/20/17 09:49 Freq: Status: Active Protocol: Activity Type Activity Date Activity User E-Sign Co-Sign Detail Recorded Client Recorded Date Recorded By Document 06/20/17 10:22 MW [id number] 06/20/17 10:24 MW 06/20/17 10:22 Wound Center Nurse 2 #6 right medial salgado cluster -Time 10:23 -Correct Patient Yes -Correct Side, Site, Position Yes -Correct Procedure Yes -Procedure Performed Yes -Type of Procedure Debridement -Clinical Debridement Subcutaneous -Post Debridement Size (cm) - Length 0.9 -Post Debridement Size (cm) - Width 0.6 -Post Debridement Size (cm) - Depth 0.1 -Total Square Cm 0.54 -Wound/Ulcer Outcome Not Healed -Ulcer Cleansing Rinsed/ Irrigated with Saline -Foul Odor after Cleansing No -Bioengineered Tissue No -Bleeding Controlled with Pressure -Treatment Response Procedure Tolerated Well #5 right superior salgado cluster -Time 10:23 -Correct Patient Yes -Correct Side, Site, Position Yes -Correct Procedure Yes -Procedure Performed No -Post Debridement Size (cm) - Length 0 -Post Debridement Size (cm) - Width 0 -Post Debridement Size (cm) - Depth 0 -Total Square Cm 0 -Wound/Ulcer Outcome Healed- Epithelialized -Ulcer Cleansing Not Cleansed -Foul Odor after Cleansing No -Bioengineered Tissue No -Bleeding Controlled with NA -Treatment Response Procedure Tolerated Well Wound debrided: Medial ulcer lower leg Type of Debridement: Excisional debridement Anesthesia Used: 5% Lidocaine Gel Depth: Down to and including healthy tissue, in the subcutaneous layer Percentage of wound debrided: 100 Instrument Used: 3mm curette Tissue Removed: Slough Severity: Limited To Skin Breakdown Amount of bleeding with debridement: Mild Bleeding Controlled with: Compression and gauze Patient tolerated procedure well Assessment/Plan Cultures of the ulcer began aerobic Active Problems Infected open wound (Acute) Open wound (Acute) Bilateral edema of lower extremity (Chronic) Diabetic neuropathy associated with diabetes mellitus due to underlying condition (Chronic) Morbid obesity with BMI of 50.0-59.9, adult (Chronic) Diabetes mellitus type 2, uncontrolled, with complications (Chronic) Assessment: Ulcers bilateral lower legs in clusters. Bilateral lower leg edema. Diabetes type 2 uncontrolled. 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 Renal insufficiency grade 3. Infected ulcers Plan: Wash legs with Hibiclens and apply macie to the R lower leg medial ulcer. Apply a double layer Tubigrip's to bilateral lower legs. Follow-up in 1 week
[2017-07-04 10:04] VITALS: BP 152/80; PULSE 75; RESP 18
--- NOTE | 2017-07-04 11:23 | PN.PCM_ITS ---
(1) Infected open wound Status: Acute Current Visit: Yes Code(s): T14.8XXA - Other injury of unspecified body region, initial encounter; L08.9 - Local infection of the skin and subcutaneous tissue, unspecified (2) Open wound Status: Acute Current Visit: Yes Code(s): T14.8 - Other injury of unspecified body region (3) Bilateral edema of lower extremity Status: Chronic Current Visit: Yes Code(s): R60.0 - Localized edema (4) Diabetes mellitus type 2, uncontrolled, with complications Status: Chronic Current Visit: Yes Code(s): E11.8 - Type 2 diabetes mellitus with unspecified complications; E11.65 - Type 2 diabetes mellitus with hyperglycemia (5) Diabetic neuropathy associated with diabetes mellitus due to underlying condition Status: Chronic Current Visit: Yes Code(s): E08.40 - Diabetes mellitus due to underlying condition with diabetic neuropathy, unspecified (6) Morbid obesity with BMI of 50.0-59.9, adult Status: Chronic Current Visit: Yes Code(s): E66.01 - Morbid (severe) obesity due to excess calories; Z68.43 - Body mass index (BMI) 50-59.9 , adult Type of Wound Date of Service: 07/04/17 Chief Complaint: Bilateral lower leg ulcers infected History of Wound: 61-year-old morbid obese woman with diabetes and has atherosclerosis disease has still not seen Dr. De La Cruz was discharged 2 months ago and due to insurance problems and now has blisters that are open ulcers on bilateral lower legs. Was seen at the [facility] and put on antibiotics but given no dressing changes. Patient was referred then to wound center. Progress of Wound: Bilateral lower leg ulcers are improving the right posterior lower extremity healed. The right superior cluster healed. The only open area now is the right medial ulcer. Patient is almost done with her antibiotics for her staph infection. Right medial ulcer is still they are smaller improving we will continue with the Macie. - Physical Exam Vital Signs Temp Pulse Resp BP 97.3 F L 75 18 152/80 H 06/20/17 09:49 07/04/17 10:04 07/04/17 10:04 07/04/17 10:04 General: Oriented x3, Cooperative, Well developed HEENT: Atraumatic, PERRLA Oral: Moist Mucosa Neck: Supple, No JVD Lungs: Clear to auscultation, Normal air movement Cardiovascular: Regular rate, Regular Rhythm Abdomen: Bowel Sounds Present, Soft, Non Tender, No Hepato-splenomegaly Extremities: No clubbing, No edema, - - Right lower leg ulcer Skin: Ulcer/ Wound Wound Measurements and Assessment WC - Nurse 1 - General Ulcer Measurement Start: 06/20/17 09:49 Freq: Status: Active Protocol: Activity Type Activity Date Activity User E-Sign Co-Sign Detail Recorded Client Recorded Date Recorded By Document 07/04/17 10:04 DV [id number] 07/04/17 10:07 DV 07/04/17 10:04 Wound Center Nurse 1 [Ulcer Assessment] #6 right medial salgado cluster -Combined with other wound No -Current Size (cm) - Length 0.6 -Current Size (cm) - Width 0.4 -Current Size (cm) - Depth 0.2 -Total Square Cm 0.24 -Photo Taken No -Epithelialization None Present -Tunneling No -Undermining/Tunneling No -Circular Undermining No -Classification - Thickness Full Thickness without Exposed Support Structure -Exudate Amt Medium (34-66%) -Exudate Type Serous -Wound Margin Distinct, Outline Attached -Granulation Amt None Present (0 %) -Granulation Quality N/A -Slough/Fibrin Yes -Necrosis Amt Large (67-100%) -Necrotic Tissue Type Adherent Slough -Structure Exposed None/Limited to Skin Breakdown -Texture (Iman-wound Skin Appearance) Assessed Scarring -Moisture (Iman-wound Skin Appearance Assessed ) Dry/Scaly -Color (Iman-wound Skin Appearance) Assessed Erythema -Temperature (Iman-wound Skin No Abnormality Appearance) (Pt Warm) -Ulcer Cleansing Rinsed/ Irrigated with Saline -Foul Odor after Cleansing No -Anesthetic Used 5% Lidocaine Gel [Edema Assessment] -Lower Limb Edema Present Yes -Right Calf (cm) 42.5 -Right Ankle (cm) 22.5 WC - Nurse 2 - General Ulcer CM Notes Start: 06/20/17 09:49 Freq: Status: Active Protocol: Activity Type Activity Date Activity User E-Sign Co-Sign Detail Recorded Client Recorded Date Recorded By Document 07/04/17 10:34 MW [id number] 07/04/17 10:36 MW 07/04/17 10:34 Wound Center Nurse 2 [Procedure/Treatment] #6 right medial salgado cluster -Time 10:34 -Correct Patient Yes -Correct Side, Site, Position Yes -Correct Procedure Yes -Procedure Performed Yes -Type of Procedure Debridement -Clinical Debridement Subcutaneous -Post Debridement Size (cm) - Length 0.9 -Post Debridement Size (cm) - Width 0.4 -Post Debridement Size (cm) - Depth 0.2 -Total Square Cm 0.36 -Wound/Ulcer Outcome Not Healed -Ulcer Cleansing Rinsed/ Irrigated with Saline -Foul Odor after Cleansing No -Bioengineered Tissue No -Bleeding Controlled with Pressure -Treatment Response Procedure Tolerated Well [See Physician Procedure note for Specifics] Pain Scale: 0-10 Numeric [Pain] -Is Patient Pain Free? Yes Musculoskeletal: No Tenderness to Palpation of Joints or Extremities Lymphatic: No Cervical, Supraclavicular, or Inguinal Adenopathy Neurological: Cranial nerves II-XII grossly intact, Neuro grossly intact Psych/Mental Status: Normal Affect, Appropriate, Alert and oriented to time, place, person, mood and affect Debridement Note Post-Debridement Measurements/Treatment WC - Nurse 2 - General Ulcer CM Notes Start: 06/20/17 09:49 Freq: Status: Active Protocol: Activity Type Activity Date Activity User E-Sign Co-Sign Detail Recorded Client Recorded Date Recorded By Document 06/20/17 10:22 MW [id number] 06/20/17 10:24 MW Document 07/04/17 10:34 MW [id number] 07/04/17 10:36 MW 06/20/17 07/04/17 10:22 10:34 Wound Center Nurse 2 #6 right medial salgado cluster -Time 10:23 10:34 -Correct Patient Yes Yes -Correct Side, Site, Position Yes Yes -Correct Procedure Yes Yes -Procedure Performed Yes Yes -Type of Procedure Debridement Debridement -Clinical Debridement Subcutaneous Subcutaneous -Post Debridement Size (cm) - Length 0.9 0.9 -Post Debridement Size (cm) - Width 0.6 0.4 -Post Debridement Size (cm) - Depth 0.1 0.2 -Total Square Cm 0.54 0.36 -Wound/Ulcer Outcome Not Healed Not Healed -Ulcer Cleansing Rinsed/ Rinsed/ Irrigated with Irrigated with Saline Saline -Foul Odor after Cleansing No No -Bioengineered Tissue No No -Bleeding Controlled with Pressure Pressure -Treatment Response Procedure Procedure Tolerated Well Tolerated Well #5 right superior salgado cluster -Time 10:23 -Correct Patient Yes -Correct Side, Site, Position Yes -Correct Procedure Yes -Procedure Performed No -Post Debridement Size (cm) - Length 0 -Post Debridement Size (cm) - Width 0 -Post Debridement Size (cm) - Depth 0 -Total Square Cm 0 -Wound/Ulcer Outcome Healed- Epithelialized -Ulcer Cleansing Not Cleansed -Foul Odor after Cleansing No -Bioengineered Tissue No -Bleeding Controlled with NA -Treatment Response Procedure Tolerated Well Pain Scale: 0-10 Numeric Is Patient Pain Free? Yes Wound debrided: Lower leg medial leg ulcer Type of Debridement: Excisional debridement Anesthesia Used: 5% Lidocaine Gel Depth: Down to and including healthy tissue, in the subcutaneous layer Percentage of wound debrided: 100 Instrument Used: 5mm curette Tissue Removed: slough And fibrin Severity: Limited To Skin Breakdown Amount of bleeding with debridement: Mild Bleeding Controlled with: Compression and gauze Patient tolerated procedure well Assessment/Plan Active Problems Infected open wound (Acute) Open wound (Acute) Bilateral edema of lower extremity (Chronic) Diabetic neuropathy associated with diabetes mellitus due to underlying condition (Chronic) Morbid obesity with BMI of 50.0-59.9, adult (Chronic) Diabetes mellitus type 2, uncontrolled, with complications (Chronic) Assessment: Ulcers bilateral lower legs in clusters. Bilateral lower leg edema. Diabetes type 2 uncontrolled. 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 Renal insufficiency grade 3. Infected ulcers Plan: Wash legs with Hibiclens and apply macie to the R lower leg medial ulcer. Apply a double layer Tubigrip's to bilateral lower legs. Follow-up in 2 week
== END 2017-07-14 23:59 ==
LOC: WC 10:00
PROVIDERS: Family Provider Family Medicine; PCP Family Medicine; Visit Provider Nurse Practitioner
DX: E11.622 Type 2 diabetes mellitus with other skin ulcer (principal); L08.9 Local infection of the skin and subcutaneous tissue, unspecified; R60.0 Localized edema; E11.65 Type 2 diabetes mellitus with hyperglycemia; E66.01 Morbid (severe) obesity due to excess calories; Z68.43 Body mass index [BMI] 50.0-59.9, adult; Z71.3 Dietary counseling and surveillance; E11.40 Type 2 diabetes mellitus with diabetic neuropathy, unspecified; L98.491 Non-pressure chronic ulcer of skin of other sites limited to breakdown of skin
CPT/HCPCS: 11042; 87070; 87075; 87077; 87186; 87205

== ENCOUNTER 2017-08-08 10:00 | Outpatient (RCR) | payer MEDICAID, MEDICARE, SELFPAY ==
[2017-07-15 00:50] VITALS: PULSE 75; RESP 18; TEMP 36.3
[2017-08-01 09:58] VITALS: BP 154/64; PULSE 74; RESP 22; TEMP 36.3
--- NOTE | 2017-08-01 13:00 | PCM.WC.PN ---
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 Status: Acute Current Visit: Yes Qualifiers: Lower extremity ulceration location: calf Code(s): I70.239 - Atherosclerosis of [place] arteries of right leg with ulceration of unspecified site; I70.249 - Atherosclerosis of [place] arteries of left leg with ulceration of unspecified site (2) Open wound Status: Acute Current Visit: Yes Code(s): T14.8 - Other injury of unspecified body region (3) Peripheral vascular occlusive disease Status: Chronic Current Visit: Yes Code(s): I73.9 - Peripheral vascular disease, unspecified Type of Wound Date of Service: 08/01/17 Chief Complaint: Bilateral lower leg ulcers infected History of Wound: 61-year-old morbid obese woman with diabetes and has atherosclerosis disease has still not seen Dr. De La Cruz was discharged 2 months ago and due to insurance problems and now has blisters that are open ulcers on bilateral lower legs. Was seen at the [facility] and put on antibiotics but given no dressing changes. Patient was referred then to wound center. Progress of Wound: Dealing with the right lower salgado area is the last of the blisters that have turned to ulcers is healing. Will change to hydrogel and Adaptic for closure. - Physical Exam Vital Signs Temp Pulse Resp BP 97.4 F L 74 22 H 154/64 H 08/01/17 09:58 08/01/17 09:58 08/01/17 09:58 08/01/17 09:58 General: Oriented x3, Cooperative, Well developed HEENT: Atraumatic, PERRLA Oral: Moist Mucosa Neck: Supple, No JVD Lungs: Clear to auscultation, Normal air movement Cardiovascular: Regular rate, Regular Rhythm Abdomen: Bowel Sounds Present, Soft, Non Tender, No Hepato-splenomegaly Extremities: No clubbing, Edema, - - An ulcer right lower salgado Wound Measurements and Assessment WC - Nurse 1 - General Ulcer Measurement Start: 08/01/17 09:57 Freq: Status: Active Protocol: Activity Type Activity Date Activity User E-Sign Co-Sign Detail Recorded Client Recorded Date Recorded By Document 08/01/17 09:58 DL [id number] 08/01/17 10:02 DL 08/01/17 09:58 Wound Center Nurse 1 [Ulcer Assessment] #6 right medial salgado cluster -Current Size (cm) - Length 0.6 -Current Size (cm) - Width 0.5 -Current Size (cm) - Depth 0.1 -Total Square Cm 0.30 -Photo Taken No -Exudate Amt Small (1-33%) -Exudate Type Serosanguineous -Wound Margin Distinct, Outline Attached -Granulation Amt None Present (0 %) -Necrosis Amt Large (67-100%) -Necrotic Tissue Type Adherent Slough -Structure Exposed N/A -Texture (Iman-wound Skin Appearance) No Abnormality -Moisture (Iman-wound Skin Appearance No Abnormality ) -Color (Iman-wound Skin Appearance) Erythema Hemosiderin Staining Rubor -Temperature (Iman-wound Skin No Abnormality Appearance) (Pt Warm) -Tenderness on Palpation (Iman-wound No Skin Appearance) -Ulcer Cleansing Rinsed/ Irrigated with Saline -Foul Odor after Cleansing No -Anesthetic Used 4% Lidocaine Solution [Edema Assessment] -Right Calf (cm) 41.5 -Right Ankle (cm) 21.5 WC - Nurse 2 - General Ulcer CM Notes Start: 08/01/17 09:57 Freq: Status: Active Protocol: Activity Type Activity Date Activity User E-Sign Co-Sign Detail Recorded Client Recorded Date Recorded By Document 08/01/17 11:04 DV [id number] 08/01/17 11:08 DV 08/01/17 11:04 Wound Center Nurse 2 [Procedure/Treatment] #6 right medial salgado cluster -Time 11:05 -Correct Patient Yes -Correct Side, Site, Position Yes -Correct Procedure Yes -Procedure Performed Yes -Type of Procedure Debridement -Clinical Debridement Subcutaneous -Post Debridement Size (cm) - Length 0.4 -Post Debridement Size (cm) - Width 0.3 -Post Debridement Size (cm) - Depth 0.2 -Total Square Cm 0.12 -Wound/Ulcer Outcome Not Healed -Ulcer Cleansing Rinsed/ Irrigated with Saline -Foul Odor after Cleansing No -Bioengineered Tissue No -Bleeding Controlled with Pressure -Treatment Response Procedure Tolerated Well [See Physician Procedure note for Specifics] Pain Scale: 0-10 Numeric [Pain] -Is Patient Pain Free? Yes Musculoskeletal: No Tenderness to Palpation of Joints or Extremities Lymphatic: No Cervical, Supraclavicular, or Inguinal Adenopathy Neurological: Cranial nerves II-XII grossly intact, Neuro grossly intact Psych/Mental Status: Normal Affect, Appropriate, Alert and oriented to time, place, person, mood and affect Debridement Note Post-Debridement Measurements/Treatment WC - Nurse 2 - General Ulcer CM Notes Start: 08/01/17 09:57 Freq: Status: Active Protocol: Activity Type Activity Date Activity User E-Sign Co-Sign Detail Recorded Client Recorded Date Recorded By Document 08/01/17 11:04 DV [id number] 08/01/17 11:08 DV 08/01/17 11:04 Wound Center Nurse 2 #6 right medial salgado cluster -Time 11:05 -Correct Patient Yes -Correct Side, Site, Position Yes -Correct Procedure Yes -Procedure Performed Yes -Type of Procedure Debridement -Clinical Debridement Subcutaneous -Post Debridement Size (cm) - Length 0.4 -Post Debridement Size (cm) - Width 0.3 -Post Debridement Size (cm) - Depth 0.2 -Total Square Cm 0.12 -Wound/Ulcer Outcome Not Healed -Ulcer Cleansing Rinsed/ Irrigated with Saline -Foul Odor after Cleansing No -Bioengineered Tissue No -Bleeding Controlled with Pressure -Treatment Response Procedure Tolerated Well Pain Scale: 0-10 Numeric Is Patient Pain Free? Yes Wound debrided: Right salgado ulcer Type of Debridement: Excisional debridement Anesthesia Used: 5% Lidocaine Gel Depth: Down to and including healthy tissue, in the subcutaneous layer Percentage of wound debrided: 100 Instrument Used: 3mm curette Tissue Removed: Slough and fibrin Severity: Limited To Skin Breakdown Amount of bleeding with debridement: Mild Bleeding Controlled with: Compression and gauze Patient tolerated procedure well Assessment/Plan Active Problems Atherosclerosis of both lower extremities with bilateral ulceration (Acute) Open wound (Acute) Peripheral vascular occlusive disease (Chronic) Assessment: Lower leg ulcer right. Bilateral lower leg edema. Diabetes type 2 uncontrolled. 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 Renal insufficiency grade 3. Infected ulcers Plan: Wash legs with Hibiclens and apply hydrogel and Adaptic to R lower leg medial ulcer. Apply a double layer Tubigrip's to bilateral lower legs. Follow-up in 1 week
--- NOTE | 2017-08-01 13:04 | PN.PCM_ITS ---
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 Status: Acute Current Visit: Yes Qualifiers: Lower extremity ulceration location: calf Code(s): I70.239 - Atherosclerosis of [place] arteries of right leg with ulceration of unspecified site; I70.249 - Atherosclerosis of [place] arteries of left leg with ulceration of unspecified site (2) Open wound Status: Acute Current Visit: Yes Code(s): T14.8 - Other injury of unspecified body region (3) Peripheral vascular occlusive disease Status: Chronic Current Visit: Yes Code(s): I73.9 - Peripheral vascular disease, unspecified Type of Wound Date of Service: 08/01/17 Chief Complaint: Bilateral lower leg ulcers infected History of Wound: 61-year-old morbid obese woman with diabetes and has atherosclerosis disease has still not seen Dr. De La Cruz was discharged 2 months ago and due to insurance problems and now has blisters that are open ulcers on bilateral lower legs. Was seen at the [facility] and put on antibiotics but given no dressing changes. Patient was referred then to wound center. Progress of Wound: Dealing with the right lower salgado area is the last of the blisters that have turned to ulcers is healing. Will change to hydrogel and Adaptic for closure. - Physical Exam Vital Signs Temp Pulse Resp BP 97.4 F L 74 22 H 154/64 H 08/01/17 09:58 08/01/17 09:58 08/01/17 09:58 08/01/17 09:58 General: Oriented x3, Cooperative, Well developed HEENT: Atraumatic, PERRLA Oral: Moist Mucosa Neck: Supple, No JVD Lungs: Clear to auscultation, Normal air movement Cardiovascular: Regular rate, Regular Rhythm Abdomen: Bowel Sounds Present, Soft, Non Tender, No Hepato-splenomegaly Extremities: No clubbing, Edema, - - An ulcer right lower salgado Wound Measurements and Assessment WC - Nurse 1 - General Ulcer Measurement Start: 08/01/17 09:57 Freq: Status: Active Protocol: Activity Type Activity Date Activity User E-Sign Co-Sign Detail Recorded Client Recorded Date Recorded By Document 08/01/17 09:58 DL [id number] 08/01/17 10:02 DL 08/01/17 09:58 Wound Center Nurse 1 [Ulcer Assessment] #6 right medial salgado cluster -Current Size (cm) - Length 0.6 -Current Size (cm) - Width 0.5 -Current Size (cm) - Depth 0.1 -Total Square Cm 0.30 -Photo Taken No -Exudate Amt Small (1-33%) -Exudate Type Serosanguineous -Wound Margin Distinct, Outline Attached -Granulation Amt None Present (0 %) -Necrosis Amt Large (67-100%) -Necrotic Tissue Type Adherent Slough -Structure Exposed N/A -Texture (Iman-wound Skin Appearance) No Abnormality -Moisture (Iman-wound Skin Appearance No Abnormality ) -Color (Iman-wound Skin Appearance) Erythema Hemosiderin Staining Rubor -Temperature (Iman-wound Skin No Abnormality Appearance) (Pt Warm) -Tenderness on Palpation (Iman-wound No Skin Appearance) -Ulcer Cleansing Rinsed/ Irrigated with Saline -Foul Odor after Cleansing No -Anesthetic Used 4% Lidocaine Solution [Edema Assessment] -Right Calf (cm) 41.5 -Right Ankle (cm) 21.5 WC - Nurse 2 - General Ulcer CM Notes Start: 08/01/17 09:57 Freq: Status: Active Protocol: Activity Type Activity Date Activity User E-Sign Co-Sign Detail Recorded Client Recorded Date Recorded By Document 08/01/17 11:04 DV [id number] 08/01/17 11:08 DV 08/01/17 11:04 Wound Center Nurse 2 [Procedure/Treatment] #6 right medial salgado cluster -Time 11:05 -Correct Patient Yes -Correct Side, Site, Position Yes -Correct Procedure Yes -Procedure Performed Yes -Type of Procedure Debridement -Clinical Debridement Subcutaneous -Post Debridement Size (cm) - Length 0.4 -Post Debridement Size (cm) - Width 0.3 -Post Debridement Size (cm) - Depth 0.2 -Total Square Cm 0.12 -Wound/Ulcer Outcome Not Healed -Ulcer Cleansing Rinsed/ Irrigated with Saline -Foul Odor after Cleansing No -Bioengineered Tissue No -Bleeding Controlled with Pressure -Treatment Response Procedure Tolerated Well [See Physician Procedure note for Specifics] Pain Scale: 0-10 Numeric [Pain] -Is Patient Pain Free? Yes Musculoskeletal: No Tenderness to Palpation of Joints or Extremities Lymphatic: No Cervical, Supraclavicular, or Inguinal Adenopathy Neurological: Cranial nerves II-XII grossly intact, Neuro grossly intact Psych/Mental Status: Normal Affect, Appropriate, Alert and oriented to time, place, person, mood and affect Debridement Note Post-Debridement Measurements/Treatment WC - Nurse 2 - General Ulcer CM Notes Start: 08/01/17 09:57 Freq: Status: Active Protocol: Activity Type Activity Date Activity User E-Sign Co-Sign Detail Recorded Client Recorded Date Recorded By Document 08/01/17 11:04 DV [id number] 08/01/17 11:08 DV 08/01/17 11:04 Wound Center Nurse 2 #6 right medial salgado cluster -Time 11:05 -Correct Patient Yes -Correct Side, Site, Position Yes -Correct Procedure Yes -Procedure Performed Yes -Type of Procedure Debridement -Clinical Debridement Subcutaneous -Post Debridement Size (cm) - Length 0.4 -Post Debridement Size (cm) - Width 0.3 -Post Debridement Size (cm) - Depth 0.2 -Total Square Cm 0.12 -Wound/Ulcer Outcome Not Healed -Ulcer Cleansing Rinsed/ Irrigated with Saline -Foul Odor after Cleansing No -Bioengineered Tissue No -Bleeding Controlled with Pressure -Treatment Response Procedure Tolerated Well Pain Scale: 0-10 Numeric Is Patient Pain Free? Yes Wound debrided: Right salgado ulcer Type of Debridement: Excisional debridement Anesthesia Used: 5% Lidocaine Gel Depth: Down to and including healthy tissue, in the subcutaneous layer Percentage of wound debrided: 100 Instrument Used: 3mm curette Tissue Removed: Slough and fibrin Severity: Limited To Skin Breakdown Amount of bleeding with debridement: Mild Bleeding Controlled with: Compression and gauze Patient tolerated procedure well Assessment/Plan Active Problems Atherosclerosis of both lower extremities with bilateral ulceration (Acute) Open wound (Acute) Peripheral vascular occlusive disease (Chronic) Assessment: Lower leg ulcer right. Bilateral lower leg edema. Diabetes type 2 uncontrolled. 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 Renal insufficiency grade 3. Infected ulcers Plan: Wash legs with Hibiclens and apply hydrogel and Adaptic to R lower leg medial ulcer. Apply a double layer Tubigrip's to bilateral lower legs. Follow- up in 1 week
[2017-08-08 11:01] VITALS: BP 154/68; PULSE 76; RESP 20; TEMP 36.5
--- NOTE | 2017-08-08 13:13 | PCM.WC.PN ---
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 Status: Acute Current Visit: Yes Qualifiers: Lower extremity ulceration location: other part of foot Code(s): I70.239 - Atherosclerosis of [place] arteries of right leg with ulceration of unspecified site; I70.249 - Atherosclerosis of [place] arteries of left leg with ulceration of unspecified site (2) Open wound Status: Acute Current Visit: Yes Code(s): T14.8 - Other injury of unspecified body region (3) Peripheral vascular occlusive disease Status: Chronic Current Visit: Yes Code(s): I73.9 - Peripheral vascular disease, unspecified (4) Nonhealing ulcer of left lower leg Status: Acute Current Visit: Yes Code(s): L97.929 - Non-pressure chronic ulcer of unspecified part of left lower leg with unspecified severity Type of Wound Date of Service: 08/08/17 Chief Complaint: Bilateral lower leg ulcers infected History of Wound: 61-year-old morbid obese woman with diabetes and has atherosclerosis disease has still not seen Dr. De La Cruz was discharged 2 months ago and due to insurance problems and now has blisters that are open ulcers on bilateral lower legs. Was seen at the [facility] and put on antibiotics but given no dressing changes. Patient was referred then to wound center. Progress of Wound: Right salgado ulcer is the same size but much grounds cleaner this week. We will change from hydrogel and Adaptic back to Promogran to increase in cell formation we will repeat her culture this week also because of the stagnation in healing.. - Physical Exam Vital Signs Temp Pulse Resp BP 97.7 F L 76 20 H 154/68 H 08/08/17 11:01 08/08/17 11:01 08/08/17 11:01 08/08/17 11:01 General: Oriented x3, Cooperative, Well developed HEENT: Atraumatic, PERRLA Oral: Moist Mucosa Neck: Supple, No JVD Lungs: Clear to auscultation, Normal air movement Cardiovascular: Regular rate, Regular Rhythm Abdomen: Bowel Sounds Present, Soft, Non Tender, No Hepato-splenomegaly Extremities: No clubbing, No edema, - - Salgado ulcer Wound Measurements and Assessment WC - Nurse 1 - General Ulcer Measurement Start: 08/01/17 09:57 Freq: Status: Active Protocol: Activity Type Activity Date Activity User E-Sign Co-Sign Detail Recorded Client Recorded Date Recorded By Document 08/08/17 11:01 DV [id number] 08/08/17 11:08 DV 08/08/17 11:01 Wound Center Nurse 1 [Ulcer Assessment] #6 right medial salgado cluster -Combined with other wound No -Current Size (cm) - Length 0.4 -Current Size (cm) - Width 0.5 -Current Size (cm) - Depth 0.2 -Total Square Cm 0.20 -Photo Taken Yes -Epithelialization None Present -Tunneling No -Undermining/Tunneling No -Circular Undermining No -Classification - Thickness Full Thickness without Exposed Support Structure -Exudate Amt None Present (0 %) -Wound Margin Flat & Intact -Granulation Amt None Present (0 %) -Granulation Quality N/A -Slough/Fibrin Yes -Necrosis Amt Large (67-100%) -Necrotic Tissue Type Adherent Slough -Structure Exposed None/Limited to Skin Breakdown -Texture (Iman-wound Skin Appearance) Assessed Localized Edema Scarring -Moisture (Iman-wound Skin Appearance Assessed ) Dry/Scaly -Color (Iman-wound Skin Appearance) No Abnormality Assessed -Temperature (Iman-wound Skin No Abnormality Appearance) (Pt Warm) -Ulcer Cleansing Rinsed/ Irrigated with Saline -Foul Odor after Cleansing No -Anesthetic Used 5% Lidocaine Gel [Edema Assessment] -Lower Limb Edema Present Yes -Right Calf (cm) 42.0 -Right Ankle (cm) 23.0 WC - Nurse 2 - General Ulcer CM Notes Start: 08/01/17 09:57 Freq: Status: Active Protocol: Activity Type Activity Date Activity User E-Sign Co-Sign Detail Recorded Client Recorded Date Recorded By Document 08/08/17 11:39 DV [id number] 08/08/17 11:41 DV 08/08/17 11:39 Wound Center Nurse 2 [Procedure/Treatment] #6 right medial salgado cluster -Time 11:39 -Correct Patient Yes -Correct Side, Site, Position Yes -Correct Procedure Yes -Procedure Performed Yes -Type of Procedure Debridement -Clinical Debridement Subcutaneous -Post Debridement Size (cm) - Length 0.6 -Post Debridement Size (cm) - Width 0.3 -Post Debridement Size (cm) - Depth 0.2 -Total Square Cm 0.18 -Wound/Ulcer Outcome Not Healed -Ulcer Cleansing Rinsed/ Irrigated with Saline -Foul Odor after Cleansing No -Bioengineered Tissue No -Bleeding Controlled with NA -Treatment Response Procedure Tolerated Well [See Physician Procedure note for Specifics] Pain Scale: 0-10 Numeric [Pain] -Is Patient Pain Free? Yes Musculoskeletal: No Tenderness to Palpation of Joints or Extremities Lymphatic: No Cervical, Supraclavicular, or Inguinal Adenopathy Neurological: Cranial nerves II-XII grossly intact, Neuro grossly intact Psych/Mental Status: Normal Affect, Appropriate Debridement Note Post-Debridement Measurements/Treatment WC - Nurse 2 - General Ulcer CM Notes Start: 08/01/17 09:57 Freq: Status: Active Protocol: Activity Type Activity Date Activity User E-Sign Co-Sign Detail Recorded Client Recorded Date Recorded By Document 08/01/17 11:04 DV [id number] 08/01/17 11:08 DV Document 08/08/17 11:39 DV [id number] 08/08/17 11:41 DV 08/01/17 08/08/17 11:04 11:39 Wound Center Nurse 2 #6 right medial salgado cluster -Time 11:05 11:39 -Correct Patient Yes Yes -Correct Side, Site, Position Yes Yes -Correct Procedure Yes Yes -Procedure Performed Yes Yes -Type of Procedure Debridement Debridement -Clinical Debridement Subcutaneous Subcutaneous -Post Debridement Size (cm) - Length 0.4 0.6 -Post Debridement Size (cm) - Width 0.3 0.3 -Post Debridement Size (cm) - Depth 0.2 0.2 -Total Square Cm 0.12 0.18 -Wound/Ulcer Outcome Not Healed Not Healed -Ulcer Cleansing Rinsed/ Rinsed/ Irrigated with Irrigated with Saline Saline -Foul Odor after Cleansing No No -Bioengineered Tissue No No -Bleeding Controlled with Pressure NA -Treatment Response Procedure Procedure Tolerated Well Tolerated Well Pain Scale: 0-10 Numeric Is Patient Pain Free? Yes Yes Wound debrided: R salgado Type of Debridement: Excisional debridement Depth: Down to and including healthy tissue, in the subcutaneous layer Percentage of wound debrided: 100 Instrument Used: 5mm curette Tissue Removed: fibrin Severity: Limited To Skin Breakdown Amount of bleeding with debridement: Mild Bleeding Controlled with: Compression and gauze Patient tolerated procedure well Assessment/Plan Wound cultures obtained aerobic anaerobic Active Problems Atherosclerosis of both lower extremities with bilateral ulceration (Acute) Nonhealing ulcer of left lower leg (Acute) Open wound (Acute) Peripheral vascular occlusive disease (Chronic) Assessment: Lower leg ulcer right. Bilateral lower leg edema. Diabetes type 2 uncontrolled. 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 Renal insufficiency grade 3. Infected ulcers Plan: wash leg with Hibiclens apply Promogran to the ulcer base moistened cover with gauze and tape double layer Tubigrip with Harjeet wrap over top follow-up in 1 week
--- NOTE | 2017-08-08 13:19 | PN.PCM_ITS ---
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 Status: Acute Current Visit: Yes Qualifiers: Lower extremity ulceration location: other part of foot Code(s): I70.239 - Atherosclerosis of [place] arteries of right leg with ulceration of unspecified site; I70.249 - Atherosclerosis of [place] arteries of left leg with ulceration of unspecified site (2) Open wound Status: Acute Current Visit: Yes Code(s): T14.8 - Other injury of unspecified body region (3) Peripheral vascular occlusive disease Status: Chronic Current Visit: Yes Code(s): I73.9 - Peripheral vascular disease, unspecified (4) Nonhealing ulcer of left lower leg Status: Acute Current Visit: Yes Code(s): L97.929 - Non-pressure chronic ulcer of unspecified part of left lower leg with unspecified severity Type of Wound Date of Service: 08/08/17 Chief Complaint: Bilateral lower leg ulcers infected History of Wound: 61-year-old morbid obese woman with diabetes and has atherosclerosis disease has still not seen Dr. De La Cruz was discharged 2 months ago and due to insurance problems and now has blisters that are open ulcers on bilateral lower legs. Was seen at the [facility] and put on antibiotics but given no dressing changes. Patient was referred then to wound center. Progress of Wound: Right salgado ulcer is the same size but much finish cleaner this week. We will change from hydrogel and Adaptic back to Promogran to increase in cell formation we will repeat her culture this week also because of the stagnation in healing.. - Physical Exam Vital Signs Temp Pulse Resp BP 97.7 F L 76 20 H 154/68 H 08/08/17 11:01 08/08/17 11:01 08/08/17 11:01 08/08/17 11:01 General: Oriented x3, Cooperative, Well developed HEENT: Atraumatic, PERRLA Oral: Moist Mucosa Neck: Supple, No JVD Lungs: Clear to auscultation, Normal air movement Cardiovascular: Regular rate, Regular Rhythm Abdomen: Bowel Sounds Present, Soft, Non Tender, No Hepato-splenomegaly Extremities: No clubbing, No edema, - - Salgado ulcer Wound Measurements and Assessment WC - Nurse 1 - General Ulcer Measurement Start: 08/01/17 09:57 Freq: Status: Active Protocol: Activity Type Activity Date Activity User E-Sign Co-Sign Detail Recorded Client Recorded Date Recorded By Document 08/08/17 11:01 DV [id number] 08/08/17 11:08 DV 08/08/17 11:01 Wound Center Nurse 1 [Ulcer Assessment] #6 right medial salgado cluster -Combined with other wound No -Current Size (cm) - Length 0.4 -Current Size (cm) - Width 0.5 -Current Size (cm) - Depth 0.2 -Total Square Cm 0.20 -Photo Taken Yes -Epithelialization None Present -Tunneling No -Undermining/Tunneling No -Circular Undermining No -Classification - Thickness Full Thickness without Exposed Support Structure -Exudate Amt None Present (0 %) -Wound Margin Flat & Intact -Granulation Amt None Present (0 %) -Granulation Quality N/A -Slough/Fibrin Yes -Necrosis Amt Large (67-100%) -Necrotic Tissue Type Adherent Slough -Structure Exposed None/Limited to Skin Breakdown -Texture (Iman-wound Skin Appearance) Assessed Localized Edema Scarring -Moisture (Iman-wound Skin Appearance Assessed ) Dry/Scaly -Color (Iman-wound Skin Appearance) No Abnormality Assessed -Temperature (Iman-wound Skin No Abnormality Appearance) (Pt Warm) -Ulcer Cleansing Rinsed/ Irrigated with Saline -Foul Odor after Cleansing No -Anesthetic Used 5% Lidocaine Gel [Edema Assessment] -Lower Limb Edema Present Yes -Right Calf (cm) 42.0 -Right Ankle (cm) 23.0 WC - Nurse 2 - General Ulcer CM Notes Start: 08/01/17 09:57 Freq: Status: Active Protocol: Activity Type Activity Date Activity User E-Sign Co-Sign Detail Recorded Client Recorded Date Recorded By Document 08/08/17 11:39 DV [id number] 08/08/17 11:41 DV 08/08/17 11:39 Wound Center Nurse 2 [Procedure/Treatment] #6 right medial salgado cluster -Time 11:39 -Correct Patient Yes -Correct Side, Site, Position Yes -Correct Procedure Yes -Procedure Performed Yes -Type of Procedure Debridement -Clinical Debridement Subcutaneous -Post Debridement Size (cm) - Length 0.6 -Post Debridement Size (cm) - Width 0.3 -Post Debridement Size (cm) - Depth 0.2 -Total Square Cm 0.18 -Wound/Ulcer Outcome Not Healed -Ulcer Cleansing Rinsed/ Irrigated with Saline -Foul Odor after Cleansing No -Bioengineered Tissue No -Bleeding Controlled with NA -Treatment Response Procedure Tolerated Well [See Physician Procedure note for Specifics] Pain Scale: 0-10 Numeric [Pain] -Is Patient Pain Free? Yes Musculoskeletal: No Tenderness to Palpation of Joints or Extremities Lymphatic: No Cervical, Supraclavicular, or Inguinal Adenopathy Neurological: Cranial nerves II-XII grossly intact, Neuro grossly intact Psych/Mental Status: Normal Affect, Appropriate Debridement Note Post-Debridement Measurements/Treatment WC - Nurse 2 - General Ulcer CM Notes Start: 08/01/17 09:57 Freq: Status: Active Protocol: Activity Type Activity Date Activity User E-Sign Co-Sign Detail Recorded Client Recorded Date Recorded By Document 08/01/17 11:04 DV [id number] 08/01/17 11:08 DV Document 08/08/17 11:39 DV [id number] 08/08/17 11:41 DV 08/01/17 08/08/17 11:04 11:39 Wound Center Nurse 2 #6 right medial salgado cluster -Time 11:05 11:39 -Correct Patient Yes Yes -Correct Side, Site, Position Yes Yes -Correct Procedure Yes Yes -Procedure Performed Yes Yes -Type of Procedure Debridement Debridement -Clinical Debridement Subcutaneous Subcutaneous -Post Debridement Size (cm) - Length 0.4 0.6 -Post Debridement Size (cm) - Width 0.3 0.3 -Post Debridement Size (cm) - Depth 0.2 0.2 -Total Square Cm 0.12 0.18 -Wound/Ulcer Outcome Not Healed Not Healed -Ulcer Cleansing Rinsed/ Rinsed/ Irrigated with Irrigated with Saline Saline -Foul Odor after Cleansing No No -Bioengineered Tissue No No -Bleeding Controlled with Pressure NA -Treatment Response Procedure Procedure Tolerated Well Tolerated Well Pain Scale: 0-10 Numeric Is Patient Pain Free? Yes Yes Wound debrided: R salgado Type of Debridement: Excisional debridement Depth: Down to and including healthy tissue, in the subcutaneous layer Percentage of wound debrided: 100 Instrument Used: 5mm curette Tissue Removed: fibrin Severity: Limited To Skin Breakdown Amount of bleeding with debridement: Mild Bleeding Controlled with: Compression and gauze Patient tolerated procedure well Assessment/Plan Wound cultures obtained aerobic anaerobic Active Problems Atherosclerosis of both lower extremities with bilateral ulceration (Acute) Nonhealing ulcer of left lower leg (Acute) Open wound (Acute) Peripheral vascular occlusive disease (Chronic) Assessment: Lower leg ulcer right. Bilateral lower leg edema. Diabetes type 2 uncontrolled. 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 Renal insufficiency grade 3. Infected ulcers Plan: wash leg with Hibiclens apply Promogran to the ulcer base moistened cover with gauze and tape double layer Tubigrip with Harjeet wrap over top follow-up in 1 week
== END 2017-08-14 23:59 ==
LOC: WC 10:00
PROVIDERS: Family Provider Family Medicine; PCP Family Medicine; Visit Provider Nurse Practitioner
DX: L97.811 Non-pressure chronic ulcer of other part of right lower leg limited to breakdown of skin (principal); I70.239 Atherosclerosis of native arteries of right leg with ulceration of unspecified site; I70.249 Atherosclerosis of native arteries of left leg with ulceration of unspecified site; I73.9 Peripheral vascular disease, unspecified; R60.0 Localized edema; E11.65 Type 2 diabetes mellitus with hyperglycemia; E11.40 Type 2 diabetes mellitus with diabetic neuropathy, unspecified; N28.9 Disorder of kidney and ureter, unspecified; E66.01 Morbid (severe) obesity due to excess calories
CPT/HCPCS: 11042; 87070; 87075; 87077; 87186; 87205

== ENCOUNTER 2017-09-12 10:00 | Outpatient (RCR) | payer MEDICARE, MEDICAID, SELFPAY ==
[2017-08-15 00:44] VITALS: BP 154/68; PULSE 76; RESP 20; TEMP 36.5
[2017-08-15 09:57] VITALS: BP 148/76; PULSE 74; RESP 16; TEMP 36.6
--- NOTE | 2017-08-15 13:34 | PCM.WC.PN ---
(1) Infected open wound Status: Acute Current Visit: Yes Code(s): T14.8XXA - Other injury of unspecified body region, initial encounter; L08.9 - Local infection of the skin and subcutaneous tissue, unspecified (2) Nonhealing ulcer of left lower leg Status: Acute Current Visit: Yes Code(s): L97.929 - Non-pressure chronic ulcer of unspecified part of left lower leg with unspecified severity (3) Open wound Status: Acute Current Visit: Yes Code(s): T14.8 - Other injury of unspecified body region (4) Atherosclerosis of left lower extremity with ulceration Status: Chronic Current Visit: Yes Code(s): I70.249 - Atherosclerosis of [place] arteries of left leg with ulceration of unspecified site Type of Wound Date of Service: 08/15/17 Chief Complaint: Bilateral lower leg ulcers infected History of Wound: 61-year-old morbid obese woman with diabetes and has atherosclerosis disease has still not seen Dr. De La Cruz was discharged 2 months ago and due to insurance problems and now has blisters that are open ulcers on bilateral lower legs. Was seen at the [facility] and put on antibiotics but given no dressing changes. Patient was referred then to wound center. Progress of Wound: Right salgado ulcer is smaller size but much grounds cleaner this week. We will changed back to Promogran to increase in cell formation we will repeat her culture this week also because of the stagnation in healing. Did have growth on her account and he has been started on levofloxacin once a day. Developed another skin superficial area on the salgado and we are now evaluating that. - Physical Exam Vital Signs Temp Pulse Resp BP 97.8 F 74 16 148/76 H 08/15/17 09:57 08/15/17 09:57 08/15/17 09:57 08/15/17 09:57 General: Oriented x3, Cooperative, Well developed HEENT: Atraumatic, PERRLA Oral: Moist Mucosa Neck: Supple, No JVD Lungs: Clear to auscultation, Normal air movement Cardiovascular: Regular rate, Regular Rhythm Abdomen: Bowel Sounds Present, Soft, Non Tender, No Hepato-splenomegaly Extremities: No clubbing, No edema, - - R lower leg ulcers Wound Measurements and Assessment WC - Nurse 1 - General Ulcer Measurement Start: 08/15/17 09:56 Freq: Status: Active Protocol: Activity Type Activity Date Activity User E-Sign Co-Sign Detail Recorded Client Recorded Date Recorded By Document 08/15/17 09:57 [facility] [id number] 08/15/17 10:14 [facility] 08/15/17 09:57 Wound Center Nurse 1 [Ulcer Assessment] #12- RT SALGADO -Combined with other wound No -Current Size (cm) - Length 1.2 -Current Size (cm) - Width 1.1 -Current Size (cm) - Depth 0.1 -Total Square Cm 1.32 -Date of Last Picture (Recall this 08/15/17 field) -Photo Taken Yes -Epithelialization None Present -Tunneling No -Undermining/Tunneling No -Circular Undermining No -Exudate Amt None Present (0 %) -Wound Margin Distinct, Outline Attached -Granulation Amt None Present (0 %) -Slough/Fibrin Yes -Necrosis Amt Large (67-100%) -Necrotic Tissue Type Adherent Slough -Structure Exposed N/A -Texture (Iman-wound Skin Appearance) Scarring -Moisture (Iman-wound Skin Appearance No Abnormality ) Assessed -Color (Iman-wound Skin Appearance) Erythema -Temperature (Iman-wound Skin No Abnormality Appearance) (Pt Warm) -Tenderness on Palpation (Iman-wound No Skin Appearance) -Ulcer Cleansing Rinsed/ Irrigated with Saline -Foul Odor after Cleansing No -Anesthetic Used 4% Lidocaine Solution #6 right medial salgado cluster -Combined with other wound No -Current Size (cm) - Length 0.5 -Current Size (cm) - Width 0.4 -Current Size (cm) - Depth 0.1 -Total Square Cm 0.20 -Date of Last Picture (Recall this 08/15/17 field) -Photo Taken Yes -Epithelialization None Present -Tunneling No -Undermining/Tunneling No -Circular Undermining No -Exudate Amt Small (1-33%) -Exudate Type Serous -Wound Margin Distinct, Outline Attached -Granulation Amt None Present (0 %) -Slough/Fibrin Yes -Necrosis Amt Large (67-100%) -Necrotic Tissue Type Adherent Slough -Structure Exposed N/A -Texture (Iman-wound Skin Appearance) Scarring -Moisture (Iman-wound Skin Appearance No Abnormality ) Assessed -Color (Iman-wound Skin Appearance) Erythema -Temperature (Iman-wound Skin No Abnormality Appearance) (Pt Warm) -Tenderness on Palpation (Iman-wound Yes Skin Appearance) -Ulcer Cleansing Rinsed/ Irrigated with Saline -Foul Odor after Cleansing No -Anesthetic Used 4% Lidocaine Solution [Edema Assessment] -Lower Limb Edema Present Yes -Right Calf (cm) 42.5 -Right Ankle (cm) 23.8 HALLIE - Nurse 2 - General Ulcer CM Notes Start: 08/15/17 09:56 Freq: Status: Active Protocol: Activity Type Activity Date Activity User E-Sign Co-Sign Detail Recorded Client Recorded Date Recorded By Document 08/15/17 10:38 ANUP [id number] 08/15/17 10:41 ANUP 08/15/17 10:38 Wound Center Nurse 2 [Procedure/Treatment] #12- RT SALGADO -Time 10:39 -Correct Patient Yes -Correct Side, Site, Position Yes -Correct Procedure Yes -Procedure Performed Yes -Type of Procedure Debridement -Clinical Debridement Subcutaneous -Post Debridement Size (cm) - Length 1.4 -Post Debridement Size (cm) - Width 1.1 -Post Debridement Size (cm) - Depth 0.1 -Total Square Cm 1.54 -Wound/Ulcer Outcome Not Healed -Ulcer Cleansing Rinsed/ Irrigated with Saline -Foul Odor after Cleansing No -Bioengineered Tissue No -Bleeding Controlled with Pressure -Treatment Response Procedure Tolerated Well #6 right medial salgado cluster -Time 10:39 -Correct Patient Yes -Correct Side, Site, Position Yes -Correct Procedure Yes -Procedure Performed Yes -Type of Procedure Debridement -Clinical Debridement Subcutaneous -Post Debridement Size (cm) - Length 0.4 -Post Debridement Size (cm) - Width 0.4 -Post Debridement Size (cm) - Depth 0.2 -Total Square Cm 0.16 -Wound/Ulcer Outcome Not Healed -Ulcer Cleansing Rinsed/ Irrigated with Saline -Foul Odor after Cleansing No -Bioengineered Tissue No -Bleeding Controlled with Pressure -Treatment Response Procedure Tolerated Well [See Physician Procedure note for Specifics] Pain Scale: 0-10 Numeric [Pain] -Is Patient Pain Free? Yes Musculoskeletal: No Tenderness to Palpation of Joints or Extremities Lymphatic: No Cervical, Supraclavicular, or Inguinal Adenopathy Neurological: Cranial nerves II-XII grossly intact, Neuro grossly intact Psych/Mental Status: Normal Affect, Appropriate Debridement Note Post-Debridement Measurements/Treatment HALLIE - Nurse 2 - General Ulcer CM Notes Start: 08/15/17 09:56 Freq: Status: Active Protocol: Activity Type Activity Date Activity User E-Sign Co-Sign Detail Recorded Client Recorded Date Recorded By Document 08/15/17 10:38 ANUP [id number] 08/15/17 10:41 ANUP 08/15/17 10:38 Wound Center Nurse 2 #12- RT SALGADO -Time 10:39 -Correct Patient Yes -Correct Side, Site, Position Yes -Correct Procedure Yes -Procedure Performed Yes -Type of Procedure Debridement -Clinical Debridement Subcutaneous -Post Debridement Size (cm) - Length 1.4 -Post Debridement Size (cm) - Width 1.1 -Post Debridement Size (cm) - Depth 0.1 -Total Square Cm 1.54 -Wound/Ulcer Outcome Not Healed -Ulcer Cleansing Rinsed/ Irrigated with Saline -Foul Odor after Cleansing No -Bioengineered Tissue No -Bleeding Controlled with Pressure -Treatment Response Procedure Tolerated Well #6 right medial salgado cluster -Time 10:39 -Correct Patient Yes -Correct Side, Site, Position Yes -Correct Procedure Yes -Procedure Performed Yes -Type of Procedure Debridement -Clinical Debridement Subcutaneous -Post Debridement Size (cm) - Length 0.4 -Post Debridement Size (cm) - Width 0.4 -Post Debridement Size (cm) - Depth 0.2 -Total Square Cm 0.16 -Wound/Ulcer Outcome Not Healed -Ulcer Cleansing Rinsed/ Irrigated with Saline -Foul Odor after Cleansing No -Bioengineered Tissue No -Bleeding Controlled with Pressure -Treatment Response Procedure Tolerated Well Pain Scale: 0-10 Numeric Is Patient Pain Free? Yes Wound debrided: Right medial salgado Type of Debridement: Excisional debridement Anesthesia Used: 5% Lidocaine Gel Depth: Down to and including healthy tissue, in the subcutaneous layer Instrument Used: 3mm curette Tissue Removed: slough Severity: Limited To Skin Breakdown Amount of bleeding with debridement: Mild Bleeding Controlled with: Compression and gauze Patient tolerated procedure well - Additional Wound Wound debrided: Salgado area Type of Debridement: Excisional debridement Anesthesia Used: 5% Lidocaine Gel Depth: Down to and including healthy tissue, in the subcutaneous layer Percentage of wound debrided: 100 Instrument Used: 3mm curette Tissue Removed: slough Severity: Limited To Skin Breakdown Amount of bleeding with debridement: None Bleeding Controlled with: Pressure Patient tolerated procedure: Patient tolerated procedure well Assessment/Plan Active Problems Infected open wound (Acute) Nonhealing ulcer of left lower leg (Acute) Open wound (Acute) Atherosclerosis of left lower extremity with ulceration (Chronic) Assessment: Lower leg ulcer right. Bilateral lower leg edema. Diabetes type 2 uncontrolled. 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 Renal insufficiency grade 3. Infected ulcers Plan: wash leg with Hibiclens apply Promogran to the ulcer base moistened cover with gauze and tape double layer Tubigrip with Harjeet wrap over top follow-up in 1 week. Levofloxacin 500 mg once a day for 14 days
--- NOTE | 2017-08-15 13:39 | PN.PCM_ITS ---
(1) Infected open wound Status: Acute Current Visit: Yes Code(s): T14.8XXA - Other injury of unspecified body region, initial encounter; L08.9 - Local infection of the skin and subcutaneous tissue, unspecified (2) Nonhealing ulcer of left lower leg Status: Acute Current Visit: Yes Code(s): L97.929 - Non-pressure chronic ulcer of unspecified part of left lower leg with unspecified severity (3) Open wound Status: Acute Current Visit: Yes Code(s): T14.8 - Other injury of unspecified body region (4) Atherosclerosis of left lower extremity with ulceration Status: Chronic Current Visit: Yes Code(s): I70.249 - Atherosclerosis of [place] arteries of left leg with ulceration of unspecified site Type of Wound Date of Service: 08/15/17 Chief Complaint: Bilateral lower leg ulcers infected History of Wound: 61-year-old morbid obese woman with diabetes and has atherosclerosis disease has still not seen Dr. De La Cruz was discharged 2 months ago and due to insurance problems and now has blisters that are open ulcers on bilateral lower legs. Was seen at the [facility] and put on antibiotics but given no dressing changes. Patient was referred then to wound center. 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 We will changed back to Promogran to increase in cell formation we will repeat her culture this week also because of the stagnation in healing. Did have growth on her account and he has been started on levofloxacin once a day. Developed another skin superficial area on the salgado and we are now evaluating that. - Physical Exam Vital Signs Temp Pulse Resp BP 97.8 F 74 16 148/76 H 08/15/17 09:57 08/15/17 09:57 08/15/17 09:57 08/15/17 09:57 General: Oriented x3, Cooperative, Well developed HEENT: Atraumatic, PERRLA Oral: Moist Mucosa Neck: Supple, No JVD Lungs: Clear to auscultation, Normal air movement Cardiovascular: Regular rate, Regular Rhythm Abdomen: Bowel Sounds Present, Soft, Non Tender, No Hepato-splenomegaly Extremities: No clubbing, No edema, - - R lower leg ulcers Wound Measurements and Assessment WC - Nurse 1 - General Ulcer Measurement Start: 08/15/17 09:56 Freq: Status: Active Protocol: Activity Type Activity Date Activity User E-Sign Co-Sign Detail Recorded Client Recorded Date Recorded By Document 08/15/17 09:57 [facility] [id number] 08/15/17 10:14 [facility] 08/15/17 09:57 Wound Center Nurse 1 [Ulcer Assessment] #12- RT SALGADO -Combined with other wound No -Current Size (cm) - Length 1.2 -Current Size (cm) - Width 1.1 -Current Size (cm) - Depth 0.1 -Total Square Cm 1.32 -Date of Last Picture (Recall this 08/15/17 field) -Photo Taken Yes -Epithelialization None Present -Tunneling No -Undermining/Tunneling No -Circular Undermining No -Exudate Amt None Present (0 %) -Wound Margin Distinct, Outline Attached -Granulation Amt None Present (0 %) -Slough/Fibrin Yes -Necrosis Amt Large (67-100%) -Necrotic Tissue Type Adherent Slough -Structure Exposed N/A -Texture (Iman-wound Skin Appearance) Scarring -Moisture (Iman-wound Skin Appearance No Abnormality ) Assessed -Color (Iman-wound Skin Appearance) Erythema -Temperature (Iman-wound Skin No Abnormality Appearance) (Pt Warm) -Tenderness on Palpation (Iman-wound No Skin Appearance) -Ulcer Cleansing Rinsed/ Irrigated with Saline -Foul Odor after Cleansing No -Anesthetic Used 4% Lidocaine Solution #6 right medial salgado cluster -Combined with other wound No -Current Size (cm) - Length 0.5 -Current Size (cm) - Width 0.4 -Current Size (cm) - Depth 0.1 -Total Square Cm 0.20 -Date of Last Picture (Recall this 08/15/17 field) -Photo Taken Yes -Epithelialization None Present -Tunneling No -Undermining/Tunneling No -Circular Undermining No -Exudate Amt Small (1-33%) -Exudate Type Serous -Wound Margin Distinct, Outline Attached -Granulation Amt None Present (0 %) -Slough/Fibrin Yes -Necrosis Amt Large (67-100%) -Necrotic Tissue Type Adherent Slough -Structure Exposed N/A -Texture (Iman-wound Skin Appearance) Scarring -Moisture (Iman-wound Skin Appearance No Abnormality ) Assessed -Color (Iman-wound Skin Appearance) Erythema -Temperature (Iman-wound Skin No Abnormality Appearance) (Pt Warm) -Tenderness on Palpation (Iman-wound Yes Skin Appearance) -Ulcer Cleansing Rinsed/ Irrigated with Saline -Foul Odor after Cleansing No -Anesthetic Used 4% Lidocaine Solution [Edema Assessment] -Lower Limb Edema Present Yes -Right Calf (cm) 42.5 -Right Ankle (cm) 23.8 HALLIE - Nurse 2 - General Ulcer CM Notes Start: 08/15/17 09:56 Freq: Status: Active Protocol: Activity Type Activity Date Activity User E-Sign Co-Sign Detail Recorded Client Recorded Date Recorded By Document 08/15/17 10:38 [facility] [id number] 08/15/17 10:41 [facility] 08/15/17 10:38 Wound Center Nurse 2 [Procedure/Treatment] #12- RT SALGADO -Time 10:39 -Correct Patient Yes -Correct Side, Site, Position Yes -Correct Procedure Yes -Procedure Performed Yes -Type of Procedure Debridement -Clinical Debridement Subcutaneous -Post Debridement Size (cm) - Length 1.4 -Post Debridement Size (cm) - Width 1.1 -Post Debridement Size (cm) - Depth 0.1 -Total Square Cm 1.54 -Wound/Ulcer Outcome Not Healed -Ulcer Cleansing Rinsed/ Irrigated with Saline -Foul Odor after Cleansing No -Bioengineered Tissue No -Bleeding Controlled with Pressure -Treatment Response Procedure Tolerated Well #6 right medial salgado cluster -Time 10:39 -Correct Patient Yes -Correct Side, Site, Position Yes -Correct Procedure Yes -Procedure Performed Yes -Type of Procedure Debridement -Clinical Debridement Subcutaneous -Post Debridement Size (cm) - Length 0.4 -Post Debridement Size (cm) - Width 0.4 -Post Debridement Size (cm) - Depth 0.2 -Total Square Cm 0.16 -Wound/Ulcer Outcome Not Healed -Ulcer Cleansing Rinsed/ Irrigated with Saline -Foul Odor after Cleansing No -Bioengineered Tissue No -Bleeding Controlled with Pressure -Treatment Response Procedure Tolerated Well [See Physician Procedure note for Specifics] Pain Scale: 0-10 Numeric [Pain] -Is Patient Pain Free? Yes Musculoskeletal: No Tenderness to Palpation of Joints or Extremities Lymphatic: No Cervical, Supraclavicular, or Inguinal Adenopathy Neurological: Cranial nerves II-XII grossly intact, Neuro grossly intact Psych/Mental Status: Normal Affect, Appropriate Debridement Note Post-Debridement Measurements/Treatment HALLIE - Nurse 2 - General Ulcer CM Notes Start: 08/15/17 09:56 Freq: Status: Active Protocol: Activity Type Activity Date Activity User E-Sign Co-Sign Detail Recorded Client Recorded Date Recorded By Document 08/15/17 10:38 [facility] [id number] 08/15/17 10:41 [facility] 08/15/17 10:38 Wound Center Nurse 2 #12- RT SALGADO -Time 10:39 -Correct Patient Yes -Correct Side, Site, Position Yes -Correct Procedure Yes -Procedure Performed Yes -Type of Procedure Debridement -Clinical Debridement Subcutaneous -Post Debridement Size (cm) - Length 1.4 -Post Debridement Size (cm) - Width 1.1 -Post Debridement Size (cm) - Depth 0.1 -Total Square Cm 1.54 -Wound/Ulcer Outcome Not Healed -Ulcer Cleansing Rinsed/ Irrigated with Saline -Foul Odor after Cleansing No -Bioengineered Tissue No -Bleeding Controlled with Pressure -Treatment Response Procedure Tolerated Well #6 right medial salgado cluster -Time 10:39 -Correct Patient Yes -Correct Side, Site, Position Yes -Correct Procedure Yes -Procedure Performed Yes -Type of Procedure Debridement -Clinical Debridement Subcutaneous -Post Debridement Size (cm) - Length 0.4 -Post Debridement Size (cm) - Width 0.4 -Post Debridement Size (cm) - Depth 0.2 -Total Square Cm 0.16 -Wound/Ulcer Outcome Not Healed -Ulcer Cleansing Rinsed/ Irrigated with Saline -Foul Odor after Cleansing No -Bioengineered Tissue No -Bleeding Controlled with Pressure -Treatment Response Procedure Tolerated Well Pain Scale: 0-10 Numeric Is Patient Pain Free? Yes Wound debrided: Right medial salgado Type of Debridement: Excisional debridement Anesthesia Used: 5% Lidocaine Gel Depth: Down to and including healthy tissue, in the subcutaneous layer Instrument Used: 3mm curette Tissue Removed: slough Severity: Limited To Skin Breakdown Amount of bleeding with debridement: Mild Bleeding Controlled with: Compression and gauze Patient tolerated procedure well - Additional Wound Wound debrided: Salgado area Type of Debridement: Excisional debridement Anesthesia Used: 5% Lidocaine Gel Depth: Down to and including healthy tissue, in the subcutaneous layer Percentage of wound debrided: 100 Instrument Used: 3mm curette Tissue Removed: slough Severity: Limited To Skin Breakdown Amount of bleeding with debridement: None Bleeding Controlled with: Pressure Patient tolerated procedure: Patient tolerated procedure well Assessment/Plan Active Problems Infected open wound (Acute) Nonhealing ulcer of left lower leg (Acute) Open wound (Acute) Atherosclerosis of left lower extremity with ulceration (Chronic) Assessment: Lower leg ulcer right. Bilateral lower leg edema. Diabetes type 2 uncontrolled. 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 Renal insufficiency grade 3. Infected ulcers Plan: wash leg with Hibiclens apply Promogran to the ulcer base moistened cover with gauze and tape double layer Tubigrip with Harjeet wrap over top follow-up in 1 week. Levofloxacin 500 mg once a day for 14 days
[2017-08-29 10:10] VITALS: BP 135/73; PULSE 90; RESP 18; TEMP 36.4
--- NOTE | 2017-08-29 10:34 | PCM.WC.PN ---
(1) Infected open wound Status: Acute Current Visit: Yes Code(s): T14.8XXA - Other injury of unspecified body region, initial encounter; L08.9 - Local infection of the skin and subcutaneous tissue, unspecified (2) Nonhealing ulcer of left lower leg Status: Acute Current Visit: Yes Code(s): L97.929 - Non-pressure chronic ulcer of unspecified part of left lower leg with unspecified severity (3) Open wound Status: Acute Current Visit: Yes Code(s): T14.8 - Other injury of unspecified body region (4) Atherosclerosis of left lower extremity with ulceration Status: Chronic Current Visit: Yes Code(s): I70.249 - Atherosclerosis of [place] arteries of left leg with ulceration of unspecified site Type of Wound Date of Service: 08/29/17 Chief Complaint: Bilateral lower leg ulcers infected History of Wound: 61-year-old morbid obese woman with diabetes and has atherosclerosis disease has still not seen Dr. De La Cruz was discharged 2 months ago and due to insurance problems and now has blisters that are open ulcers on bilateral lower legs. Was seen at the [facility] and put on antibiotics but given no dressing changes. Patient was referred then to wound center. Progress of Wound: Right salgado ulcer is resolved. The right medial salgado ulcer is smaller. We will changed back to Promogran to increase in cell formation. Patient has finished her antibiotic therapy. She has been compliant with wearing her compression stockings. - Physical Exam Vital Signs Temp Pulse Resp BP 97.5 F L 90 18 135/73 H 08/29/17 10:10 08/29/17 10:10 08/29/17 10:10 08/29/17 10:10 General: Oriented x3, Cooperative, Well developed HEENT: Atraumatic, PERRLA Oral: Moist Mucosa Neck: Supple, No JVD Lungs: Clear to auscultation, Normal air movement Cardiovascular: Regular rate, Regular Rhythm Abdomen: Bowel Sounds Present, Soft, Non Tender, No Hepato-splenomegaly Extremities: No clubbing, Edema Skin: Ulcer/ Wound - Right medial salgado ulcer Wound Measurements and Assessment WC - Nurse 1 - General Ulcer Measurement Start: 08/15/17 09:56 Freq: Status: Active Protocol: Activity Type Activity Date Activity User E-Sign Co-Sign Detail Recorded Client Recorded Date Recorded By Document 08/29/17 10:10 [facility] [id number] 08/29/17 10:19 [facility] 08/29/17 10:10 Wound Center Nurse 1 [Ulcer Assessment] #12- RT SALGADO -Combined with other wound No -Current Size (cm) - Length 0 -Current Size (cm) - Width 0 -Current Size (cm) - Depth 0 -Total Square Cm 0 -Epithelialization Large 67-100% #6 right medial salgado cluster -Combined with other wound No -Current Size (cm) - Length 0.3 -Current Size (cm) - Width 0.2 -Current Size (cm) - Depth 0.2 -Total Square Cm 0.06 -Photo Taken No -Epithelialization Medium 34-66% -Tunneling No -Undermining/Tunneling No -Circular Undermining No -Exudate Amt None Present (0 %) -Wound Margin Distinct, Outline Attached -Granulation Amt None Present (0 %) -Slough/Fibrin Yes -Necrosis Amt Large (67-100%) -Necrotic Tissue Type Adherent Slough -Structure Exposed N/A -Texture (Iman-wound Skin Appearance) Scarring -Moisture (Iman-wound Skin Appearance Dry/Scaly ) -Color (Iman-wound Skin Appearance) Assessed -Temperature (Iman-wound Skin No Abnormality Appearance) (Pt Warm) -Tenderness on Palpation (Iman-wound Yes Skin Appearance) -Ulcer Cleansing Rinsed/ Irrigated with Saline -Foul Odor after Cleansing No -Anesthetic Used 4% Lidocaine Solution [Edema Assessment] -Lower Limb Edema Present Yes -Right Calf (cm) 45.9 -Right Ankle (cm) 23.6 Musculoskeletal: No Tenderness to Palpation of Joints or Extremities Lymphatic: No Cervical, Supraclavicular, or Inguinal Adenopathy Neurological: Cranial nerves II-XII grossly intact, Neuro grossly intact Psych/Mental Status: Normal Affect, Appropriate Debridement Note Post-Debridement Measurements/Treatment WC - Nurse 2 - General Ulcer CM Notes Start: 08/15/17 09:56 Freq: Status: Active Protocol: Activity Type Activity Date Activity User E-Sign Co-Sign Detail Recorded Client Recorded Date Recorded By Document 08/15/17 10:38 [id number] 08/15/17 10:41 [facility] 08/15/17 10:38 Wound Center Nurse 2 #12- RT SALGADO -Time 10:39 -Correct Patient Yes -Correct Side, Site, Position Yes -Correct Procedure Yes -Procedure Performed Yes -Type of Procedure Debridement -Clinical Debridement Subcutaneous -Post Debridement Size (cm) - Length 1.4 -Post Debridement Size (cm) - Width 1.1 -Post Debridement Size (cm) - Depth 0.1 -Total Square Cm 1.54 -Wound/Ulcer Outcome Not Healed -Ulcer Cleansing Rinsed/ Irrigated with Saline -Foul Odor after Cleansing No -Bioengineered Tissue No -Bleeding Controlled with Pressure -Treatment Response Procedure Tolerated Well #6 right medial salgado cluster -Time 10:39 -Correct Patient Yes -Correct Side, Site, Position Yes -Correct Procedure Yes -Procedure Performed Yes -Type of Procedure Debridement -Clinical Debridement Subcutaneous -Post Debridement Size (cm) - Length 0.4 -Post Debridement Size (cm) - Width 0.4 -Post Debridement Size (cm) - Depth 0.2 -Total Square Cm 0.16 -Wound/Ulcer Outcome Not Healed -Ulcer Cleansing Rinsed/ Irrigated with Saline -Foul Odor after Cleansing No -Bioengineered Tissue No -Bleeding Controlled with Pressure -Treatment Response Procedure Tolerated Well Pain Scale: 0-10 Numeric Is Patient Pain Free? Yes Wound debrided: Medial salgado ulcer Type of Debridement: Excisional debridement Anesthesia Used: 5% Lidocaine Gel Depth: Down to and including healthy tissue, in the subcutaneous layer Percentage of wound debrided: 100 Instrument Used: 3mm curette Tissue Removed: Slough and fibrin Severity: Limited To Skin Breakdown Amount of bleeding with debridement: Mild Bleeding Controlled with: Compression and gauze Patient tolerated procedure well Assessment/Plan Active Problems Infected open wound (Acute) Nonhealing ulcer of left lower leg (Acute) Open wound (Acute) Atherosclerosis of left lower extremity with ulceration (Chronic) Assessment: Right medial salgado ulcer non-healing. Bilateral lower leg edema. Diabetes type 2 uncontrolled. 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 Renal insufficiency grade 3. Infected ulcers Plan: wash leg with Hibiclens apply Promogran to the ulcer base moistened cover with gauze and tape double layer Tubigrip with Harjeet wrap over top. follow-up in 1 week
--- NOTE | 2017-08-29 10:38 | PN.PCM_ITS ---
(1) Infected open wound Status: Acute Current Visit: Yes Code(s): T14.8XXA - Other injury of unspecified body region, initial encounter; L08.9 - Local infection of the skin and subcutaneous tissue, unspecified (2) Nonhealing ulcer of left lower leg Status: Acute Current Visit: Yes Code(s): L97.929 - Non-pressure chronic ulcer of unspecified part of left lower leg with unspecified severity (3) Open wound Status: Acute Current Visit: Yes Code(s): T14.8 - Other injury of unspecified body region (4) Atherosclerosis of left lower extremity with ulceration Status: Chronic Current Visit: Yes Code(s): I70.249 - Atherosclerosis of [place] arteries of left leg with ulceration of unspecified site Type of Wound Date of Service: 08/29/17 Chief Complaint: Bilateral lower leg ulcers infected History of Wound: 61-year-old morbid obese woman with diabetes and has atherosclerosis disease has still not seen Dr. De La Cruz was discharged 2 months ago and due to insurance problems and now has blisters that are open ulcers on bilateral lower legs. Was seen at the [facility] and put on antibiotics but given no dressing changes. Patient was referred then to wound center. Progress of Wound: Right salgado ulcer is resolved. The right medial salgado ulcer is smaller. We will changed back to Promogran to increase in cell formation. Patient has finished her antibiotic therapy. She has been compliant with wearing her compression stockings. - Physical Exam Vital Signs Temp Pulse Resp BP 97.5 F L 90 18 135/73 H 08/29/17 10:10 08/29/17 10:10 08/29/17 10:10 08/29/17 10:10 General: Oriented x3, Cooperative, Well developed HEENT: Atraumatic, PERRLA Oral: Moist Mucosa Neck: Supple, No JVD Lungs: Clear to auscultation, Normal air movement Cardiovascular: Regular rate, Regular Rhythm Abdomen: Bowel Sounds Present, Soft, Non Tender, No Hepato-splenomegaly Extremities: No clubbing, Edema Skin: Ulcer/ Wound - Right medial salgado ulcer Wound Measurements and Assessment WC - Nurse 1 - General Ulcer Measurement Start: 08/15/17 09:56 Freq: Status: Active Protocol: Activity Type Activity Date Activity User E-Sign Co-Sign Detail Recorded Client Recorded Date Recorded By Document 08/29/17 10:10 [facility] [id number] 08/29/17 10:19 [facility] 08/29/17 10:10 Wound Center Nurse 1 [Ulcer Assessment] #12- RT SALGADO -Combined with other wound No -Current Size (cm) - Length 0 -Current Size (cm) - Width 0 -Current Size (cm) - Depth 0 -Total Square Cm 0 -Epithelialization Large 67-100% #6 right medial salgado cluster -Combined with other wound No -Current Size (cm) - Length 0.3 -Current Size (cm) - Width 0.2 -Current Size (cm) - Depth 0.2 -Total Square Cm 0.06 -Photo Taken No -Epithelialization Medium 34-66% -Tunneling No -Undermining/Tunneling No -Circular Undermining No -Exudate Amt None Present (0 %) -Wound Margin Distinct, Outline Attached -Granulation Amt None Present (0 %) -Slough/Fibrin Yes -Necrosis Amt Large (67-100%) -Necrotic Tissue Type Adherent Slough -Structure Exposed N/A -Texture (Iman-wound Skin Appearance) Scarring -Moisture (Iman-wound Skin Appearance Dry/Scaly ) -Color (Iman-wound Skin Appearance) Assessed -Temperature (Iman-wound Skin No Abnormality Appearance) (Pt Warm) -Tenderness on Palpation (Iman-wound Yes Skin Appearance) -Ulcer Cleansing Rinsed/ Irrigated with Saline -Foul Odor after Cleansing No -Anesthetic Used 4% Lidocaine Solution [Edema Assessment] -Lower Limb Edema Present Yes -Right Calf (cm) 45.9 -Right Ankle (cm) 23.6 Musculoskeletal: No Tenderness to Palpation of Joints or Extremities Lymphatic: No Cervical, Supraclavicular, or Inguinal Adenopathy Neurological: Cranial nerves II-XII grossly intact, Neuro grossly intact Psych/Mental Status: Normal Affect, Appropriate Debridement Note Post-Debridement Measurements/Treatment WC - Nurse 2 - General Ulcer CM Notes Start: 08/15/17 09:56 Freq: Status: Active Protocol: Activity Type Activity Date Activity User E-Sign Co-Sign Detail Recorded Client Recorded Date Recorded By Document 08/15/17 10:38 [id number] 08/15/17 10:41 [facility] 08/15/17 10:38 Wound Center Nurse 2 #12- RT SALGADO -Time 10:39 -Correct Patient Yes -Correct Side, Site, Position Yes -Correct Procedure Yes -Procedure Performed Yes -Type of Procedure Debridement -Clinical Debridement Subcutaneous -Post Debridement Size (cm) - Length 1.4 -Post Debridement Size (cm) - Width 1.1 -Post Debridement Size (cm) - Depth 0.1 -Total Square Cm 1.54 -Wound/Ulcer Outcome Not Healed -Ulcer Cleansing Rinsed/ Irrigated with Saline -Foul Odor after Cleansing No -Bioengineered Tissue No -Bleeding Controlled with Pressure -Treatment Response Procedure Tolerated Well #6 right medial salgado cluster -Time 10:39 -Correct Patient Yes -Correct Side, Site, Position Yes -Correct Procedure Yes -Procedure Performed Yes -Type of Procedure Debridement -Clinical Debridement Subcutaneous -Post Debridement Size (cm) - Length 0.4 -Post Debridement Size (cm) - Width 0.4 -Post Debridement Size (cm) - Depth 0.2 -Total Square Cm 0.16 -Wound/Ulcer Outcome Not Healed -Ulcer Cleansing Rinsed/ Irrigated with Saline -Foul Odor after Cleansing No -Bioengineered Tissue No -Bleeding Controlled with Pressure -Treatment Response Procedure Tolerated Well Pain Scale: 0-10 Numeric Is Patient Pain Free? Yes Wound debrided: Medial salgado ulcer Type of Debridement: Excisional debridement Anesthesia Used: 5% Lidocaine Gel Depth: Down to and including healthy tissue, in the subcutaneous layer Percentage of wound debrided: 100 Instrument Used: 3mm curette Tissue Removed: Slough and fibrin Severity: Limited To Skin Breakdown Amount of bleeding with debridement: Mild Bleeding Controlled with: Compression and gauze Patient tolerated procedure well Assessment/Plan Active Problems Infected open wound (Acute) Nonhealing ulcer of left lower leg (Acute) Open wound (Acute) Atherosclerosis of left lower extremity with ulceration (Chronic) Assessment: Right medial salgado ulcer non-healing. Bilateral lower leg edema. Diabetes type 2 uncontrolled. 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 Renal insufficiency grade 3. Infected ulcers Plan: wash leg with Hibiclens apply Promogran to the ulcer base moistened cover with gauze and tape double layer Tubigrip with Harjeet wrap over top. follow-up in 1 week
[2017-09-05 10:24] VITALS: BP 153/68; PULSE 75; RESP 18; TEMP 36.4
--- NOTE | 2017-09-05 13:59 | PN.PCM_ITS ---
(1) Infected open wound Status: Acute Current Visit: No Code(s): T14.8XXA - Other injury of unspecified body region, initial encounter; L08.9 - Local infection of the skin and subcutaneous tissue, unspecified (2) Nonhealing ulcer of left lower leg Status: Acute Current Visit: Yes Code(s): L97.929 - Non-pressure chronic ulcer of unspecified part of left lower leg with unspecified severity (3) Open wound Status: Acute Current Visit: Yes Code(s): T14.8 - Other injury of unspecified body region (4) Atherosclerosis of left lower extremity with ulceration Status: Chronic Current Visit: Yes Code(s): I70.249 - Atherosclerosis of [place] arteries of left leg with ulceration of unspecified site Type of Wound Date of Service: 09/05/17 Chief Complaint: Bilateral lower leg ulcers infected History of Wound: 61-year-old morbid obese woman with diabetes and has atherosclerosis disease has still not seen Dr. De La Cruz was discharged 2 months ago and due to insurance problems and now has blisters that are open ulcers on bilateral lower legs. Was seen at the [facility] and put on antibiotics but given no dressing changes. Patient was referred then to wound center. Progress of Wound: Right salgado ulcer is resolved. The right medial salgado ulcer is very small. We are using Promogran to increase in cell formation. Patient has finished her antibiotic therapy. She has been compliant with wearing her compression stockings. He should should be discharged next week - Physical Exam Vital Signs Temp Pulse Resp BP 97.5 F L 75 18 153/68 H 09/05/17 10:24 09/05/17 10:24 09/05/17 10:24 09/05/17 10:24 General: Oriented x3, Cooperative, Well developed HEENT: Atraumatic, PERRLA Oral: Moist Mucosa Neck: Supple, No JVD Lungs: Clear to auscultation, Normal air movement Cardiovascular: Regular rate, Regular Rhythm Abdomen: Bowel Sounds Present, Soft, Non Tender, No Hepato-splenomegaly Extremities: No clubbing, No edema, - - Salgado ulcer Wound Measurements and Assessment WC - Nurse 1 - General Ulcer Measurement Start: 08/15/17 09:56 Freq: Status: Active Protocol: Activity Type Activity Date Activity User E-Sign Co-Sign Detail Recorded Client Recorded Date Recorded By Document 09/05/17 10:24 [email or web address] [id number] 09/05/17 10:33 [facility] 09/05/17 10:24 Wound Center Nurse 1 [Ulcer Assessment] #6 right medial salgado cluster -Combined with other wound No -Current Size (cm) - Length 0.4 -Current Size (cm) - Width 0.3 -Current Size (cm) - Depth 0.2 -Total Square Cm 0.12 -Photo Taken No -Epithelialization Small 1-33% -Tunneling No -Undermining/Tunneling No -Circular Undermining No -Exudate Amt Small (1-33%) -Exudate Type Serous -Wound Margin Distinct, Outline Attached -Granulation Amt None Present (0 %) -Slough/Fibrin Yes -Necrosis Amt Large (67-100%) -Necrotic Tissue Type Adherent Slough -Structure Exposed N/A -Texture (Iman-wound Skin Appearance) Scarring -Moisture (Iman-wound Skin Appearance Dry/Scaly ) -Color (Iman-wound Skin Appearance) Assessed -Temperature (Iman-wound Skin No Abnormality Appearance) (Pt Warm) -Tenderness on Palpation (Iman-wound No Skin Appearance) -Ulcer Cleansing Rinsed/ Irrigated with Saline -Foul Odor after Cleansing No -Anesthetic Used 5% Lidocaine Gel [Edema Assessment] -Lower Limb Edema Present Yes -Right Calf (cm) 44.9 -Right Ankle (cm) 23.6 WC - Nurse 2 - General Ulcer CM Notes Start: 08/15/17 09:56 Freq: Status: Active Protocol: Activity Type Activity Date Activity User E-Sign Co-Sign Detail Recorded Client Recorded Date Recorded By Document 09/05/17 11:38 [id number] 09/05/17 11:39 09/05/17 11:38 Wound Center Nurse 2 [Procedure/Treatment] #6 right medial salgado cluster -Time 11:38 -Correct Patient Yes -Correct Side, Site, Position Yes -Correct Procedure Yes -Procedure Performed Yes -Type of Procedure Debridement -Clinical Debridement Subcutaneous -Post Debridement Size (cm) - Length 0.1 -Post Debridement Size (cm) - Width 0.2 -Post Debridement Size (cm) - Depth 0.1 -Total Square Cm 0.02 -Wound/Ulcer Outcome Not Healed -Ulcer Cleansing Rinsed/ Irrigated with Saline -Foul Odor after Cleansing No -Bioengineered Tissue No -Bleeding Controlled with NA -Treatment Response Procedure Tolerated Well [See Physician Procedure note for Specifics] Pain Scale: 0-10 Numeric [Pain] -Is Patient Pain Free? Yes Musculoskeletal: No Tenderness to Palpation of Joints or Extremities Lymphatic: No Cervical, Supraclavicular, or Inguinal Adenopathy Neurological: Cranial nerves II-XII grossly intact, Neuro grossly intact Psych/Mental Status: Normal Affect, Appropriate Debridement Note Post-Debridement Measurements/Treatment WC - Nurse 2 - General Ulcer CM Notes Start: 08/15/17 09:56 Freq: Status: Active Protocol: Activity Type Activity Date Activity User E-Sign Co-Sign Detail Recorded Client Recorded Date Recorded By Document 08/15/17 10:38 JF [id number] 08/15/17 10:41 JF Document 08/29/17 10:31 DV [id number] 08/29/17 10:36 DV Document 09/05/17 11:38 CS [id number] 09/05/17 11:39 08/15/17 08/29/17 09/05/17 10:38 10:31 11:38 Wound Center Nurse 2 #12- RT SALGADO -Time 10:39 10:31 -Correct Patient Yes Yes -Correct Side, Site, Position Yes -Correct Procedure Yes -Procedure Performed Yes No -Type of Procedure Debridement -Clinical Debridement Subcutaneous -Post Debridement Size (cm) - Length 1.4 0 -Post Debridement Size (cm) - Width 1.1 0 -Post Debridement Size (cm) - Depth 0.1 0 -Total Square Cm 1.54 0 -Wound/Ulcer Outcome Not Healed Healed- Epithelialized -Ulcer Cleansing Rinsed/ Irrigated with Saline -Foul Odor after Cleansing No -Bioengineered Tissue No -Bleeding Controlled with Pressure -Treatment Response Procedure Tolerated Well #6 right medial salgado cluster -Time 10:39 10:32 11:38 -Correct Patient Yes Yes Yes -Correct Side, Site, Position Yes Yes Yes -Correct Procedure Yes Yes Yes -Procedure Performed Yes Yes Yes -Type of Procedure Debridement Debridement Debridement -Clinical Debridement Subcutaneous Subcutaneous Subcutaneous -Post Debridement Size (cm) - Length 0.4 0.4 0.1 -Post Debridement Size (cm) - Width 0.4 0.3 0.2 -Post Debridement Size (cm) - Depth 0.2 0.2 0.1 -Total Square Cm 0.16 0.12 0.02 -Wound/Ulcer Outcome Not Healed Not Healed Not Healed -Ulcer Cleansing Rinsed/ Rinsed/ Rinsed/ Irrigated with Irrigated with Irrigated with Saline Saline Saline -Foul Odor after Cleansing No No No -Bioengineered Tissue No No No -Bleeding Controlled with Pressure Pressure NA -Treatment Response Procedure Procedure Procedure Tolerated Well Tolerated Well Tolerated Well Pain Scale: 0-10 Numeric Is Patient Pain Free? Yes Yes Yes Wound debrided: Right salgado ulcer Type of Debridement: Excisional debridement Anesthesia Used: 5% Lidocaine Gel Depth: Down to and including healthy tissue Instrument Used: 3mm curette Tissue Removed: fibrin Severity: Limited To Skin Breakdown Bleeding Controlled with: Pressure Patient tolerated procedure well Assessment/Plan Active Problems Nonhealing ulcer of left lower leg (Acute) Open wound (Acute) Atherosclerosis of left lower extremity with ulceration (Chronic) Assessment: Right medial salgado ulcer non-healing. Bilateral lower leg edema. Diabetes type 2 uncontrolled. 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 Renal insufficiency grade 3. Infected ulcers Plan: wash leg with Hibiclens apply Promogran to the ulcer base moistened cover with gauze and tape double layer Tubigrip with Harjeet wrap over top. follow-up in 1 week
[2017-09-12 09:58] VITALS: BP 151/77; PULSE 79; RESP 22; TEMP 37
--- NOTE | 2017-09-12 11:52 | PCM.WC.PN ---
(1) Infected open wound Status: Acute Current Visit: No Code(s): T14.8XXA - Other injury of unspecified body region, initial encounter; L08.9 - Local infection of the skin and subcutaneous tissue, unspecified (2) Nonhealing ulcer of left lower leg Status: Acute Current Visit: No Code(s): L97.929 - Non-pressure chronic ulcer of unspecified part of left lower leg with unspecified severity (3) Open wound Status: Acute Current Visit: No Code(s): T14.8 - Other injury of unspecified body region (4) Atherosclerosis of left lower extremity with ulceration Status: Chronic Current Visit: No Code(s): I70.249 - Atherosclerosis of [place] arteries of left leg with ulceration of unspecified site Type of Wound Date of Service: 09/12/17 Chief Complaint: Bilateral lower leg ulcers infected History of Wound: 61-year-old morbid obese woman with diabetes and has atherosclerosis disease has still not seen Dr. De La Cruz was discharged 2 months ago and due to insurance problems and now has blisters that are open ulcers on bilateral lower legs. Was seen at the [facility] and put on antibiotics but given no dressing changes. Patient was referred then to wound center. Progress of Wound: Right medial salgado resolved patient will be discharged from wound center - Physical Exam Vital Signs Temp Pulse Resp BP 98.6 F 79 22 H 151/77 H 09/12/17 09:58 09/12/17 09:58 09/12/17 09:58 09/12/17 09:58 General: Oriented x3, Cooperative, Well developed HEENT: Atraumatic, PERRLA Oral: Moist Mucosa Neck: Supple, No JVD Lungs: Clear to auscultation, Normal air movement Cardiovascular: Regular rate, Regular Rhythm Abdomen: Bowel Sounds Present, Soft, Non Tender, No Hepato-splenomegaly Extremities: No clubbing, No edema, - Wound Measurements and Assessment WC - Nurse 1 - General Ulcer Measurement Start: 08/15/17 09:56 Freq: Status: Active Protocol: Activity Type Activity Date Activity User E-Sign Co-Sign Detail Recorded Client Recorded Date Recorded By Document 09/12/17 09:58 DL [id number] 09/12/17 10:05 DL 09/12/17 09:58 Wound Center Nurse 1 [Ulcer Assessment] #6 right medial salgado cluster -Current Size (cm) - Length 0.1 -Current Size (cm) - Width 0.1 -Current Size (cm) - Depth 0.1 -Total Square Cm 0.01 -Photo Taken No -Exudate Amt None Present (0 %) -Wound Margin Flat & Intact -Granulation Amt Small (1-33%) -Granulation Quality [place] -Necrosis Amt None Present (0 %) -Structure Exposed N/A -Texture (Iman-wound Skin Appearance) Scarring -Moisture (Iman-wound Skin Appearance No Abnormality ) -Color (Iman-wound Skin Appearance) No Abnormality -Temperature (Iman-wound Skin No Abnormality Appearance) (Pt Warm) -Tenderness on Palpation (Iman-wound No Skin Appearance) -Ulcer Cleansing Rinsed/ Irrigated with Saline -Foul Odor after Cleansing No -Anesthetic Used 4% Lidocaine Solution [Edema Assessment] -Right Calf (cm) 41 -Right Ankle (cm) 21.8 Musculoskeletal: No Tenderness to Palpation of Joints or Extremities Lymphatic: No Cervical, Supraclavicular, or Inguinal Adenopathy Neurological: Cranial nerves II-XII grossly intact, Neuro grossly intact Psych/Mental Status: Normal Affect, Appropriate Debridement Note Post-Debridement Measurements/Treatment WC - Nurse 2 - General Ulcer CM Notes Start: 08/15/17 09:56 Freq: Status: Active Protocol: Activity Type Activity Date Activity User E-Sign Co-Sign Detail Recorded Client Recorded Date Recorded By Document 08/15/17 10:38 [id number] 08/15/17 10:41 Document 08/29/17 10:31 [id number] 08/29/17 10:36 Document 09/05/17 11:38 [id number] 09/05/17 11:39 08/15/17 08/29/17 09/05/17 10:38 10:31 11:38 Wound Center Nurse 2 #12- RT SALGADO -Time 10:39 10:31 -Correct Patient Yes Yes -Correct Side, Site, Position Yes -Correct Procedure Yes -Procedure Performed Yes No -Type of Procedure Debridement -Clinical Debridement Subcutaneous -Post Debridement Size (cm) - Length 1.4 0 -Post Debridement Size (cm) - Width 1.1 0 -Post Debridement Size (cm) - Depth 0.1 0 -Total Square Cm 1.54 0 -Wound/Ulcer Outcome Not Healed Healed- Epithelialized -Ulcer Cleansing Rinsed/ Irrigated with Saline -Foul Odor after Cleansing No -Bioengineered Tissue No -Bleeding Controlled with Pressure -Treatment Response Procedure Tolerated Well #6 right medial salgado cluster -Time 10:39 10:32 11:38 -Correct Patient Yes Yes Yes -Correct Side, Site, Position Yes Yes Yes -Correct Procedure Yes Yes Yes -Procedure Performed Yes Yes Yes -Type of Procedure Debridement Debridement Debridement -Clinical Debridement Subcutaneous Subcutaneous Subcutaneous -Post Debridement Size (cm) - Length 0.4 0.4 0.1 -Post Debridement Size (cm) - Width 0.4 0.3 0.2 -Post Debridement Size (cm) - Depth 0.2 0.2 0.1 -Total Square Cm 0.16 0.12 0.02 -Wound/Ulcer Outcome Not Healed Not Healed Not Healed -Ulcer Cleansing Rinsed/ Rinsed/ Rinsed/ Irrigated with Irrigated with Irrigated with Saline Saline Saline -Foul Odor after Cleansing No No No -Bioengineered Tissue No No No -Bleeding Controlled with Pressure Pressure NA -Treatment Response Procedure Procedure Procedure Tolerated Well Tolerated Well Tolerated Well Pain Scale: 0-10 Numeric Is Patient Pain Free? Yes Yes Yes No debridement was completed today Assessment/Plan Assessment: Right medial salgado ulcer non-healing resolved. Bilateral lower leg edema. Diabetes type 2 uncontrolled. 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 Renal insufficiency grade 3. Infected ulcers resolved Plan: Continue wearing Tubigrip's and support. Discharge from the wound center. Follow-up as needed
== END 2017-09-13 23:59 ==
LOC: WC 10:00
PROVIDERS: Family Provider Family Medicine; PCP Family Medicine; Visit Provider Nurse Practitioner
DX: I70.248 Atherosclerosis of native arteries of left leg with ulceration of other part of lower leg (principal); L97.821 Non-pressure chronic ulcer of other part of left lower leg limited to breakdown of skin; I70.238 Atherosclerosis of native arteries of right leg with ulceration of other part of lower leg; L97.811 Non-pressure chronic ulcer of other part of right lower leg limited to breakdown of skin; E66.01 Morbid (severe) obesity due to excess calories; Z71.3 Dietary counseling and surveillance; E11.622 Type 2 diabetes mellitus with other skin ulcer; E11.65 Type 2 diabetes mellitus with hyperglycemia; R60.0 Localized edema; E11.40 Type 2 diabetes mellitus with diabetic neuropathy, unspecified
CPT/HCPCS: 11042; 99212; G0463